=== PATIENT | male | born 1945 | race Caucasian/White ===

== ENCOUNTER 2018-06-19 12:33 | Inpatient (IN) ==
[2018-06-19] MEDS ORDERED: Sod Chloride 0.9% Inj 1,000 ML IV.SIG ONE (12:49)
--- NOTE | 2018-06-19 13:00 | ED ---
HPI General Chief complaint: Fall Stated complaint: Weakness Time Seen by Provider: 06/19/18 12:39 Source: patient, EMS, RN notes reviewed and old records reviewed Mode of arrival: EMS Limitations: no limitations History of Present Illness HPI narrative: 72-year-old male presents to the emergency department via EMS for evaluation after a fall and generalized weakness. Patient was seen in the emergency department yesterday and admission was recommended, but the patient left AGAINST MEDICAL ADVICE. At that time, he was ambulatory. He was answering all questions appropriately and appears capable of making his own decisions. Today, he grabbed onto a chair, falling. He states he laid on the ground 3 hours. Upon EMS arrival, there was stool all over the ground and all over the patient. He has been unable to walk for EMS due to his weakness. The patient states that he wants to stay this time. He reports "all over pain". Per EMS, he had no new injury from the fall. Moderate severity. Onset (ago): hour(s) Radiation: non-radiation Severity: moderate Severity scale (1-10): 10 Quality: aching Pain Consistency: constant Relieving factors: none Exacerbating factors: none Associated symptoms: weakness Related Data Home Medications Medication Instructions Recorded Confirmed Lactobacillus acidophilus 1 cap PO DAILY 06/18/18 06/19/18 aspirin 325 mg PO DAILY 06/18/18 06/19/18 atorvastatin [Lipitor] 40 mg PO HS 06/18/18 06/19/18 carbidopa-levodopa [Sinemet] 2 tab PO BID 06/18/18 06/19/18 cholecalciferol (vitamin D3) 2,000 unit PO DAILY 06/18/18 06/19/18 [Vitamin D3] digoxin [Lanoxin] 0.125 mg PO DAILY 06/18/18 06/19/18 enalapril maleate [Vasotec] 20 mg PO BID 06/18/18 06/19/18 insulin aspart U-100 [Novolog 55 units SUB-Q BID 06/18/18 06/19/18 U-100 Insulin aspart] insulin aspart U-100 [Novolog 60 unit SUB-Q QAM 06/18/18 06/19/18 U-100 Insulin aspart] insulin glargine [Lantus U-100 100 unit SUB-Q HS 06/18/18 06/19/18 Insulin] magnesium oxide 800 mg PO BID 06/18/18 06/19/18 meclizine 25 mg PO BID 06/18/18 06/19/18 meclizine 50 mg PO HS 06/18/18 06/19/18 metformin 500 mg PO BID 06/18/18 06/19/18 methyl salicylate-menthol [BenGay 1 applic TOPICAL BID PRN 06/18/18 06/19/18 Greaseless] multivitamin with minerals 1 tab PO DAILY 06/18/18 06/19/18 omega 1-fhy-ejr-fish oil [Fish Oil] 2,000 mg PO BID 06/18/18 06/19/18 sulindac 150 mg PO BID 06/18/18 06/19/18 tamsulosin 0.4 mg PO DAILY 06/18/18 06/19/18 Allergies Allergy/AdvReac Type Severity Reaction Status Date / Time No Known Allergies Allergy Verified 06/19/18 12:47 Review of Systems ROS: all other systems reviewed are negative [facility] Medical History Medical History Arterioloscleroses (Acute) Diabetes (Acute) Dysthymic disorder (Acute) Eczema (Acute) Hypomagnesemia (Acute) Obesity (BMI 30.0-34.9) (Acute) PTSD (post-traumatic stress disorder) (Acute) Vitamin D deficiency (Acute) Surgical History Surgical History History of tonsillectomy (Acute) Social History Social History Substance History: No History of Abuse Second Hand Smoke Exposure: No Smoking Status: Unknown if ever smoked Tobacco Type: Cigarettes How Often Do You Have a Drink Containing Alcohol: Never Recent Travel in [facility] within the Last 8 Weeks: No Recent Out of Country Travel within the Last 8 Weeks: No Exam Narrative Exam Narrative: GENERAL: Unkempt male patient, covered in dirt and stool, afebrile SKIN: Focused skin assessment warm/dry. No lacerations or abrasions, ulcer noted to right lateral knee HEAD: Normocephalic. Atraumatic EYES: No scleral icterus. No injection or drainage. PERRLA NECK: Supple, trachea midline. No JVD or lymphadenopathy. CARDIOVASCULAR: Regular rate and rhythm without murmurs, gallops, or rubs. RESPIRATORY: Breath sounds equal bilaterally. No accessory muscle use. Lung sounds are clear to auscultation GASTROINTESTINAL: Abdomen soft, non-tender, nondistended. MUSCULOSKELETAL: No cyanosis, or edema. No bony point tenderness. BACK: No obvious deformity. No CVA tenderness. Course Initial Documented Vital Signs Temperature 98.7 F 06/19/18 13:00 Pulse Rate 108 H 06/19/18 13:00 Pulse Oximetry 98 06/19/18 13:00 Last Documented Vital Signs Temperature 98.6 F 06/19/18 14:40 Pulse Rate 80 06/19/18 14:40 Respiratory Rate 18 06/19/18 14:40 Blood Pressure 132/71 06/19/18 14:40 Pulse Oximetry 98 06/19/18 14:40 Medical Decision Making ZULMA Attestation ZULMA supervised visit: Yes Attestation: I, Dr. Michelle, have reviewed the advance practice practitioner's documentation and am in agreement, met with the patient face to face, made the diagnosis, and the medical decision making was done by me. *My assessment and Findings: The patient is 72 years old. He arrives today with generalized weakness brought in from a failure to thrive scenario with stool and urine about his personal residence. He arrives in A. fib with RVR at a rate of 130. Weight improved with diltiazem. Prerenal azotemia also observed today. Admission to the hospitalist service to be arranged. MDM Narrative Medical decision making narrative: 72-year-old male presents to the emergency department via EMS for generalized weakness, fall at home. According to EMS, his house is a rack and he has stool all over the floor as well as himself and was unable to ambulate. The patient was seen yesterday and left AGAINST MEDICAL ADVICE. He states that he will stay this time. He had CT of the head, C-spine, chest x-ray, bilateral femur x-rays, lumbar spine x-ray, pelvis x-ray done yesterday with no acute abnormality. He was to be admitted for generalized weakness, hyperglycemia, dehydration. IV access established. EKG, CBC, CMP, magnesium, TSH, CK, troponin, PTT, PT/INR, UA ordered and pending. Patient is given normal saline 1 L IV bolus. EKG shows A-fib, RVR with 117 CBC shows no acute abnormality. CMP shows elevated BUN of 28, creatinine of 1.49, hyperglycemia of 170. Magnesium is 1.9. TSH is 1.670. CK is 463. Troponin is 0.04. PTT is 22.2. PT/INR is 10.5 /1.0. UA is pending. Hospitalist is paged for admission. Medical Screen Exam Complete: Yes Emergency Medical Condition: Yes Differential Diagnosis Differential Diagnosis: Electrolyte abnormality versus dehydration versus UTI Medical Records Medical records reviewed: Yes I reviewed the patient's medical records. Patient was seen yesterday. Lab work and imaging was completed. He was to be admitted, but left AMA. Lab Data Result diagrams: 06/19/18 13:10 06/19/18 13:10 Lab Results 06/19/18 06/19/18 06/19/18 Range/Units 13:10 13:10 13:10 WBC 5.2 (4.0-11.0) th/mm3 RBC 4.73 (4.50-5.90) mil/mm3 Hgb 14.8 (13.0-17.0) gm/dL Hct 43.7 (39.0-51.0) % MCV 92.5 (80.0-100.0) fL MCH 31.3 (27.0-34.0) pg MCHC 33.9 (32.0-36.0) % RDW 14.0 (11.6-17.2) % Plt Count 141 L (150-450) th/mm3 MPV 8.9 (7.0-11.0) fL Neut % (Auto) 74.3 H (16.0-70.0) % Lymph % (Auto) 15.0 (9.0-44.0) % Lee % (Auto) 8.6 H (0.0-8.0) % Eos % (Auto) 1.5 (0.0-4.0) % Baso % (Auto) 0.6 (0.0-2.0) % Neut # (Auto) 3.9 (1.8-7.7) th/mm3 Lymph # (Auto) 0.8 L (1.0-4.8) th/mm3 Lee # (Auto) 0.4 (0.0-0.9) th/mm3 Eos # (Auto) 0.1 (0.0-0.4) th/mm3 Baso # (Auto) 0.0 (0.0-0.2) th/mm3 WBC Differential . Differential Comment Auto diff final PT 10.5 (9.8-11.6) sec INR 1.0 Ratio APTT 22.2 L (24.3-30.1) sec Sodium 138 (136-145) meq/L Potassium 4.1 (3.5-5.1) meq/L Chloride 104 D (98-107) meq/L Carbon Dioxide 21.3 (21.0-32.0) meq/L Anion Gap 13 (5-15) meq/L BUN 28 H (7-18) mg/dL Creatinine 1.49 H (0.60-1.30) mg/dL Estimated GFR 46 L (>89) mL/min Random Glucose 170 H D (74-106) mg/dL Calcium 8.2 L (8.5-10.1) mg/dL Magnesium 1.9 (1.5-2.5) mg/dL Total Bilirubin 0.7 (0.2-1.0) mg/dL AST 55 H (15-37) U/L ALT 26 (12-78) U/L Alkaline Phosphatase 79 (45-117) U/L Total Creatine Kinase 463 H (39-308) U/L CK-MB (CK-2) 4.1 H (0.5-3.6) ng/mL CK-MB (CK-2) % 0.9 (0.0-4.0) % Troponin I 0.04 (0.02-0.05) ng/mL Total Protein 6.2 L (6.4-8.2) g/dL Albumin 2.8 L (3.4-5.0) g/dL TSH 1.670 (0.358-3.740) uIU/mL Thyroxine (T4) (4.5-12.1) mcg/dL 06/19/18 Range/Units 13:10 WBC (4.0-11.0) th/mm3 RBC (4.50-5.90) mil/mm3 Hgb (13.0-17.0) gm/dL Hct (39.0-51.0) % MCV (80.0-100.0) fL MCH (27.0-34.0) pg MCHC (32.0-36.0) % RDW (11.6-17.2) % Plt Count (150-450) th/mm3 MPV (7.0-11.0) fL Neut % (Auto) (16.0-70.0) % Lymph % (Auto) (9.0-44.0) % Lee % (Auto) (0.0-8.0) % Eos % (Auto) (0.0-4.0) % Baso % (Auto) (0.0-2.0) % Neut # (Auto) (1.8-7.7) th/mm3 Lymph # (Auto) (1.0-4.8) th/mm3 Lee # (Auto) (0.0-0.9) th/mm3 Eos # (Auto) (0.0-0.4) th/mm3 Baso # (Auto) (0.0-0.2) th/mm3 WBC Differential Differential Comment PT (9.8-11.6) sec INR Ratio APTT (24.3-30.1) sec Sodium (136-145) meq/L Potassium (3.5-5.1) meq/L Chloride (98-107) meq/L Carbon Dioxide (21.0-32.0) meq/L Anion Gap (5-15) meq/L BUN (7-18) mg/dL Creatinine (0.60-1.30) mg/dL Estimated GFR (>89) mL/min Random Glucose (74-106) mg/dL Calcium (8.5-10.1) mg/dL Magnesium (1.5-2.5) mg/dL Total Bilirubin (0.2-1.0) mg/dL AST (15-37) U/L ALT (12-78) U/L Alkaline Phosphatase (45-117) U/L Total Creatine Kinase (39-308) U/L CK-MB (CK-2) (0.5-3.6) ng/mL CK-MB (CK-2) % (0.0-4.0) % Troponin I (0.02-0.05) ng/mL Total Protein (6.4-8.2) g/dL Albumin (3.4-5.0) g/dL TSH 1.710 (0.358-3.740) uIU/mL Thyroxine (T4) 9.0 (4.5-12.1) mcg/dL Discharge Plan Discharge Disposition Patient Disposition: 30 Still Patient Discharge Details Diagnosis: Acute dehydration, Generalized weakness, Atrial fibrillation Physicians Team ED Provider: Juan Antonio Michelle ED Midlevel Provider: Khadijah Long Primary Care Provider: [facility] Attending Provider: Reji Wilkes Other Providers: Carlos Fulton Status ED Status: Admitted Patient
[2018-06-19 13:37] LABS: Baso % (Auto) 0.6 % (0.0-2.0); Eos # (Auto) 0.1 th/mm3 (0.0-0.4); Eos % (Auto) 1.5 % (0.0-4.0); Hematocrit 43.7 % (39.0-51.0); Hemoglobin 14.8 gm/dL (13.0-17.0); Lymph # (Auto) 0.8 th/mm3 (1.0-4.8); Mean Corpuscular HGB Conc 33.9 % (32.0-36.0); Mean Corpuscular Hemoglobin 31.3 pg (27.0-34.0); Mean Corpuscular Volume 92.5 fL (80.0-100.0); Mean Platelet Volume 8.9 fL (7.0-11.0); Mono # (Auto) 0.4 th/mm3 (0.0-0.9); Mono % (Auto) 8.6 % (0.0-8.0); Neut # (Auto) 3.9 th/mm3 (1.8-7.7); Neut % (Auto) 74.3 % (16.0-70.0); Platelet Count 141 th/mm3 (150-450); Red Blood Count 4.73 mil/mm3 (4.50-5.90); White Blood Count 5.2 th/mm3 (4.0-11.0)
[2018-06-19 13:47] LABS: Activated Partial Thrombo Time 22.2 sec (24.3-30.1); Prothrombin Time 10.5 sec (9.8-11.6)
[2018-06-19 14:22] LABS: Alanine Aminotransferase 26 U/L (12-78); Albumin 2.8 g/dL (3.4-5.0); Alkaline Phosphatase 79 U/L (45-117); Anion Gap 13 meq/L (5-15); Aspartate Aminotransferase 55 U/L (15-37); Blood Urea Nitrogen 28 mg/dL (7-18); Calcium 8.2 mg/dL (8.5-10.1); Carbon Dioxide 21.3 meq/L (21.0-32.0); Chloride 104 meq/L (98-107); Creatine Kinase 463 U/L (39-308); Glomerular Filtration Rate 46 mL/min (>89); Glucose,Random 170 mg/dL (74-106); Magnesium 1.9 mg/dL (1.5-2.5); Sodium 138 meq/L (136-145); Total Protein 6.2 g/dL (6.4-8.2); Troponin I 0.04 ng/mL (0.02-0.05)
[2018-06-19 14:24] LABS: Potassium 4.1 meq/L (3.5-5.1)
[2018-06-19 14:40] LABS: CKMB Percent 0.9 % (0.0-4.0); Creatine Kinase MB 4.1 ng/mL (0.5-3.6)
[2018-06-19] MEDS ORDERED: Acetaminophen 325 MG Tablet PO PRN (15:05)
[2018-06-19] MEDS ORDERED: Bisacodyl 10 MG Supp RECTAL PRN (15:05)
[2018-06-19] MEDS ORDERED: Dextrose 50% in Water 50 ML Vial IV.PUSH PRN (15:09)
[2018-06-19] MEDS ORDERED: METHYL SALICYLATE MENTHOL TOPICAL PRN (15:10)
[2018-06-19] MEDS ORDERED: Morphine Sulfate Inj 2 MG/ML Vial IV.PUSH PRN (15:10)
[2018-06-19] MEDS ORDERED: Morphine Inj 4 MG/ML Vial IV.PUSH PRN (15:10)
[2018-06-19] MEDS ORDERED: Naloxone Inj 0.4 MG/ML Vial IV.PUSH PRN (15:10)
[2018-06-19] MEDS ORDERED: Metoprolol Inj 5 MG/5 ML Vial IV.PUSH PRN (15:14)
[2018-06-19 15:45] LABS: Thyroid Stimulating Hormone 1.71 uIU/mL (0.358-3.740)
[2018-06-19] MEDS: Digoxin 125 MCG Tablet PO SCH (16:23)
[2018-06-19] MEDS: Aspirin 325 MG Tablet PO SCH (16:23)
[2018-06-19 16:28] LABS: Bilirubin,Urine Negative (Negative); Clarity,Urine Hazy (Clear); Color,Urine Yellow (Yellw/Straw); Glucose,Urine (UA) 150 mg/dL (Negative); Hyaline Casts,Urine 3 /lpf (0-3); Leukocyte Esterase,Urine Negative (Negative); Mucus,Urine Few /lpf (Occasional); Nitrite,Urine Negative (Negative); Specific Gravity,Urine 1.016 (1.002-1.035)
--- NOTE | 2018-06-19 16:30 | P.HPIM ---
History of Present Illness Service: [facility] Primary Care Physician: [facility] Chief Complaint: SP FALL AND WEAKNESS History of Present Illness: Patient is a 72-year-old male presented emergency department via EMS for evaluation after falling and generalized weakness. Patient was seen in the emergency department yesterday and admission was recommended but the patient decided that he was going to leave AGAINST MEDICAL ADVICE and took his walker and leaves the emergency department. At that time he was ambulatory, he was answering all questions appropriately and it was appeared to be capable of making his own decisions. Today he fell chair and was falling. Landed on the ground laid there for at least 3 hours. EMS will stated there was stool all over the ground and all over the patient and all over the house. He was unable to walk and EMS brought him in due to his severe weakness. The patient states that he wants to stay in the hospital this time. He reports "pain all over." Per EMS he denied any new injuries from the fall is moderate severity and stool all over the ground. Has generalized weakness. His past medical history is significant for atrial fibrillation, hyperlipidemia, possible Parkinson's like disorder, diabetes mellitus, osteoarthritis, BPH, and history of dizziness, also has history of obesity and PTSD. Currently not on any heavy duty anticoagulation and previously been on warfarin he states in the past and is now on multiple aspirin daily for anticoagulation Patient will be admitted. His heart rate will be brought under control. Cardiology will be consulted. Will get an echocardiogram. We will anticoagulate with Lovenox and we will continue fluids. We will ask physical therapy and occupational therapy to eval and treat. Has some degree of dehydration and renal insufficiency as well as what sounds like some degree of noncompliance since he left AGAINST MEDICAL ADVICE yesterday Inpatient Certification: I certify that the inpatient services were ordered in accordance with Medicare regulations governing the order. This includes certification that hospital inpatient services are reasonable and necessary and in the case of services not specified as inpatient-only under 42 CFR 419.22(n), that they are appropriately provided as inpatient services in accordance to with the 2-midnight benchmark under 43 CFR 412.3(e) Estimated Total Length of Stay (Days): 3 Plans for Post Hospital Care: SNF Review of Systems All other systems reviewed negative except as stated in HPI [facility] - History History Provided By: Patient - Medical History Medical History: Medical History (Last Updated 06/19/18 @ 16:24 by Reji Wilkes DO) Atrial fibrillation Noncompliance Arterioloscleroses Diabetes Dysthymic disorder Eczema Hypomagnesemia Obesity (BMI 30.0-34.9) PTSD (post-traumatic stress disorder) Vitamin D deficiency - Surgical History Surgical History: Surgical History (Last Updated 06/18/18 @ 16:55 by Luh Veras) History of tonsillectomy - Family History Family History: Family History (Last Updated 06/19/18 @ 16:24 by Reji Wilkes DO) Other Family history of hypertension - Tobacco History Second Hand Smoke Exposure: No Tobacco Use In Past 30 Days: No Smoking Status: Unknown if ever smoked Tobacco Type: Cigarettes - Alcohol History How Often Do You Have a Drink Containing Alcohol: Never - Substance Use History Substance History: No History of Abuse - Travel History History of Recent Travel: No Recent Travel in the [place] Within the Last 8 Weeks: No Recent Travel Out of the Country Within the Last 8 Weeks: No - Immunization History Tetanus Immunization: Unsure Hx Influenza Vaccine This Season: Unable to Assess Medications and Allergies Active Medications: Active Medications Acetaminophen (Tylenol) 650 mg PO Q4H PRN PRN Reason: Temp > 100.4 Al Hydroxide/Mg Hydroxide (Milk Of Magnesia Liq) 30 ml PO Q12H PRN PRN Reason: Mild Constipation Aspirin (Aspirin) 325 mg PO DAILY RICARDO Atorvastatin Calcium (Lipitor) 40 mg PO HS RICARDO Bisacodyl (Dulcolax Supp) 10 mg RECTAL DAILY PRN PRN Reason: SEVERE CONSITIPATION Carbidopa/Levodopa (Sinemet 25/100 Mg) 2 tab PO BID RICARDO Dextrose (D50w Vial) 50 ml IV.PUSH UNSCH PRN PRN Reason: PER HYPOGLYCEMIA PROTOCOL Digoxin (Lanoxin) 125 mcg PO DAILY RICARDO Enalapril Maleate (Vasotec) 20 mg PO BID RICARDO Enoxaparin Sodium (Lovenox Inj) 90 mg SQ Q12H RICARDO Glucagon (Glucagon Inj) 1 mg OTHER PRN PRN PRN Reason: for Hypoglycemia Protocol Sodium Chloride (Ns Inj) 1,000 mls @ 100 mls/hr IV.CONT .Q10H RICARDO Insulin Aspart (Novolog Insulin Correctional Sugar Inj) 0 unit SQ ACHS AND 3AM RICARDO; Protocol Lactobacillus Acidophilus (Lactinex) 1 tab PO DAILY RICARDO Lactulose (Lactulose Liq) 30 ml PO DAILY PRN PRN Reason: SEVERE CONSITIPATION Magnesium Oxide (Mag-Ox) 400 mg PO DAILY [facility] Meclizine HCl (Antivert) 50 mg PO HS [facility] Metoprolol Tartrate (Lopressor Inj) 5 mg IV.PUSH Q5M PRN PRN Reason: HEART RATE GREATER THAN 120 Morphine Sulfate (Morphine Inj) 2 mg IV.PUSH Q3H PRN PRN Reason: PAIN 3-5; IF UABLE TO TAKE PO Morphine Sulfate (Morphine Inj) 4 mg IV.PUSH Q3H PRN PRN Reason: PAIN 6-10;IF UNABLE TO TAKE PO Multivitamins/Minerals (Theragran-M) 1 tab PO DAILY [facility] Naloxone HCl (Narcan Inj) 0.4 mg IV.PUSH UNSCH PRN PRN Reason: SEE LABEL COMMENTS Ondansetron HCl (Zofran Inj) 4 mg IV.PUSH Q6H PRN PRN Reason: NAUSEA OR VOMITING Oxycodone/Acetaminophen (Percocet 5/325 Mg) 1 tab PO Q6H PRN PRN Reason: PAIN SCALE 3 TO 5 Oxycodone/Acetaminophen (Percocet 10/325 Mg) 1 tab PO Q6H PRN PRN Reason: PAIN SCALE 6 TO 10 Patient Own Medication( [place] 3 Dha-Epa Fish Oil) 2000 Mg 0 each PO BID [facility] Pt Own Med [Sulindac (150 Mg]) 0 each PO BID [facility] Senna/Docusate Sodium (Rayna-Colace) 1 tab PO BID [facility] Sennosides (Senokot) 17.2 mg PO Q12H PRN PRN Reason: Moderate Constipation Sodium Chloride (Ns Flush) 2 ml IV.FLUSH PRN PRN PRN Reason: FLUSH AFTER USING IV ACCESS Sodium Chloride (Ns Flush) 2 ml IV.FLUSH BID [facility] Sodium Chloride (Ns Flush) 2 ml IV.FLUSH PRN PRN PRN Reason: FLUSH AFTER USING IV ACCESS Tamsulosin HCl (Flomax) 0.4 mg PO DAILY [facility] Vitamin D (Vitamin D3) 2,000 unit PO DAILY [facility] Allergies Allergy/AdvReac Type Severity Reaction Status Date / Time No Known Allergies Allergy Verified 06/19/18 12:47 Home Medications Medication Instructions Recorded Confirmed Type Lactobacillus acidophilus 1 cap PO DAILY 06/18/18 06/19/18 History aspirin 325 mg PO DAILY 06/18/18 06/19/18 History atorvastatin [Lipitor] 40 mg PO HS 06/18/18 06/19/18 History carbidopa-levodopa [Sinemet] 2 tab PO BID 06/18/18 06/19/18 History cholecalciferol (vitamin D3) 2,000 unit PO DAILY 06/18/18 06/19/18 History [Vitamin D3] digoxin [Lanoxin] 0.125 mg PO DAILY 06/18/18 06/19/18 History enalapril maleate [Vasotec] 20 mg PO BID 06/18/18 06/19/18 History insulin aspart U-100 [Novolog 55 units SUB-Q BID 06/18/18 06/19/18 History U-100 Insulin aspart] insulin aspart U-100 [Novolog 60 unit SUB-Q QAM 06/18/18 06/19/18 History U-100 Insulin aspart] insulin glargine [Lantus U-100 100 unit SUB-Q HS 06/18/18 06/19/18 History Insulin] magnesium oxide 800 mg PO DAILY NEB 06/18/18 06/19/18 History meclizine 25 mg PO BID 06/18/18 06/19/18 History meclizine 50 mg PO HS 06/18/18 06/19/18 History metformin 500 mg PO BID 06/18/18 06/19/18 History methyl salicylate-menthol [BenGay 1 applic TOPICAL BID PRN 06/18/18 06/19/18 History Greaseless] multivitamin with minerals 1 tab PO DAILY 06/18/18 06/19/18 History omega 6-cav-ldh-fish oil [Fish Oil] 2,000 mg PO BID 06/18/18 06/19/18 History sulindac 150 mg PO BID 06/18/18 06/19/18 History tamsulosin 0.4 mg PO DAILY 06/18/18 06/19/18 History Exam Vital signs: Vital Signs 06/19/18 13:00 06/19/18 14:40 Temperature 98.7 F 98.6 F Pulse Rate 108 H 80 Respiratory Rate 18 Blood Pressure 132/71 Pulse Oximetry 98 98 Intake & Output 06/18/18 06/19/18 06/19/18 18:59 06:59 18:59 Weight 90.718 kg Narrative: GENERAL: Awake alert and oriented 3 talkative and cooperative appears a little older than stated age and appears quite disheveled SKIN: Warm and dry. Appears dirty and diabetic skin changes to bilateral lower extremities HEAD: Atraumatic. Normocephalic. EYES: Pupils equal and round. No scleral icterus. No injection or drainage. ENT: No nasal bleeding or discharge. Mucous membranes pink and moist. NECK: Trachea midline. No JVD. CARDIOVASCULAR: IRRegular rate and rhythm. S1-S2 no S3 or S4 RESPIRATORY: No accessory muscle use. Clear to auscultation. Breath sounds equal bilaterally. GASTROINTESTINAL: Abdomen soft, non-tender, nondistended. Hepatic and splenic margins not palpable. MUSCULOSKELETAL: Extremities without clubbing, cyanosis, or edema. No obvious deformities. NEUROLOGICAL: Awake and alert. No obvious cranial nerve deficits. Motor grossly within normal limits. 4 out of 5 muscle strength in the arms and legs. Normal speech. PSYCHIATRIC: Appropriate mood and affect; insight and judgment normal. Results - Labs CBC & Chem 7: 06/19/18 13:10 06/19/18 13:10 Labs: Short CBC 06/19/18 Range/Units 13:10 WBC 5.2 (4.0-11.0) th/mm3 Hgb 14.8 (13.0-17.0) gm/dL Hct 43.7 (39.0-51.0) % Plt Count 141 L (150-450) th/mm3 BMP 06/19/18 13:10 Sodium 138 Potassium 4.1 Chloride 104 D Carbon Dioxide 21.3 BUN 28 H Creatinine 1.49 H Calcium 8.2 L Cardiac Enzymes 06/19/18 Range/Units 13:10 Total Creatine Kinase 463 H (39-308) U/L CK-MB (CK-2) 4.1 H (0.5-3.6) ng/mL Troponin I 0.04 (0.02-0.05) ng/mL Liver Function 06/19/18 Range/Units 13:10 Total Bilirubin 0.7 (0.2-1.0) mg/dL AST 55 H (15-37) U/L ALT 26 (12-78) U/L Alkaline Phosphatase 79 (45-117) U/L Albumin 2.8 L (3.4-5.0) g/dL Caprini VTE Risk Assessment Caprini VTE Risk Assessment: Moderate/High Risk (score >= 2) Caprini Risk Assessment Model: Point Value = 1 Point Value = 2 Point Value = 3 Point Value = 5 Age 41-60 Minor surgery BMI > 25 kg/m2 Swollen legs Varicose veins or History of unexplained or recurrent spontaneous Oral contraceptives or hormone replacement Sepsis (< 1 month) Serious lung disease, including pneumonia (< 1 month) Abnormal pulmonary function Acute myocardial infarction Congestive heart failure (< 1 month) History of inflammatory bowel disease Medical patient at bed rest Age 61-74 Arthroscopic surgery Major open surgery (> 45 min) Laparoscopic surgery (> 45 min) Malignancy Confined to bed (> 72 hours) Immobilizing plaster cast Central venous access Age >= 75 History of VTE Family history of VTE Factor V Leiden Prothrombin [id number] Lupus anticoagulant Anticardiolipin antibodies Elevated serum homocysteine Heparin-induced thrombocytopenia Other congenital or acquired thrombophilia Stroke (< 1 month) Elective arthroplasty Hip, pelvis, or leg fracture Acute spinal cord injury (< 1 month) Prophylaxis Regimen: Total Risk Factor Score Risk Level Prophylaxis Regimen 0-1 Low Early ambulation 2 Moderate Order ONE of the following: *Sequential Compression Device (SCD) *Heparin 5000 units SQ BID 3-4 Higher Order ONE of the following medications: *Heparin 5000 units SQ TID *Enoxaparin/Lovenox 40 mg SQ daily (WT < 150 kg, CrCl > 30 mL/min) *Enoxaparin/Lovenox 30 mg SQ daily (WT < 150 kg, CrCl > 10-29 mL/min) *Enoxaparin/Lovenox 30 mg SQ BID (WT < 150 kg, CrCl > 30 mL/min) AND/OR *Sequential Compression Device (SCD) 5 or more Highest Order ONE of the following medications: *Heparin 5000 units SQ TID (Preferred with Epidurals) *Enoxaparin/Lovenox 40 mg SQ daily (WT < 150 kg, CrCl > 30 mL/min) *Enoxaparin/Lovenox 30 mg SQ daily (WT < 150 kg, CrCl > 10-29 mL/min) *Enoxaparin/Lovenox 30 mg SQ BID (WT < 150 kg, CrCl > 30 mL/min) AND *Sequential Compression Device (SCD) Assessment and Plan - Plan Generalized weakness -We will continue with physical therapy and Occupational Therapy -May need SNF at discharge -Found in disarray at his house was stool all Atrial fibrillation -We will get echo -Consult cardiology -Continue on Lovenox -Resume home medications and as needed metoprolol Admit to [facility] Diabetes -sliding scale coverage and Accu-Cheks before meals and at bedtime -We will resume his insulin once he is tolerating a diet Osteoarthritis -Continue on pain control -Physical therapy and occupational therapy to eval and treat Possible parkinsonian-like symptoms -Continue on his Sinemet as at home PTSD resume his home medications Depression/anxiety History of tobacco abuse quit 25 years ago Gait instability/status post fall -Continue physical therapy and Occupational Therapy Continue on DVT prophylaxis with Lovenox GI prophylaxis as needed Cardiology has been consulted Case management has been consult Physical therapy and Occupational Therapy has been consult We will get echo and try and get his heart rate under control Patient states he only follows at the [facility] clinic - Code Status: Full code Discussed Condition With: RN and patient and the emergency department and cardiology Discharge Planning: Pending improvement and clearance by physical therapy and Occupational Therapy and cardiology May need SNF at discharge
--- NOTE | 2018-06-19 17:03 | P.CONCA ---
<Apurva Weeks - Last Filed: 06/19/18 16:47> History of Present Illness Service: Cardiology Consult date: 06/19/18 Requesting Physician: Reji Wilkes Reason for Consult: Atrial fibrillation Primary Care Provider: [facility] Chief Complaint: SP FALL AND WEAKNESS History of Present Illness: This is a 72-year-old male who presents to the emergency department via EMS for evaluation of her falling and generalized weakness. Patient was seen in the emergency department yesterday and was recommended to be admitted, patient left AGAINST MEDICAL ADVICE. After speaking with the patient, patient stated that he was getting out of his chair and lost his balance and fell and laid on the ground for over 3 hours. Patient denies any syncope or any new injuries post fall. He has a history of atrial fibrillation which he states he was taking Coumadin but stopped and is just taking aspirin, hyperlipidemia, diabetes mellitus, osteoarthritis, BPH, obesity, PTSD, and a history of dizziness. He currently denies any chest pain, pressure, palpitations, dizziness, edema or shortness of breath. He does complain of generalized weakness that has progressively been getting worse. Review of Systems All other systems reviewed negative except as stated in HPI PMFSH - History History Provided By: Patient - Medical History Medical History: Medical History (Last Updated 06/19/18 @ 16:24 by Reji Wilkes DO) Atrial fibrillation Noncompliance Arterioloscleroses Diabetes Dysthymic disorder Eczema Hypomagnesemia Obesity (BMI 30.0-34.9) PTSD (post-traumatic stress disorder) Vitamin D deficiency - Surgical History Surgical History: Surgical History (Last Updated 06/18/18 @ 16:55 by Luh Veras) History of tonsillectomy - Family History Family History: Family History (Last Updated 06/19/18 @ 16:24 by Reji Wilkes DO) Other Family history of hypertension - Tobacco History Second Hand Smoke Exposure: No Tobacco Use In Past 30 Days: No Smoking Status: Unknown if ever smoked Tobacco Type: Cigarettes - Alcohol History How Often Do You Have a Drink Containing Alcohol: Never - Substance Use History Substance History: No History of Abuse - Travel History History of Recent Travel: No Recent Travel in the [place] Within the Last 8 Weeks: No Recent Travel Out of the Country Within the Last 8 Weeks: No - Immunization History Tetanus Immunization: Unsure Hx Influenza Vaccine This Season: Unable to Assess Medications and Allergies Allergies Allergy/AdvReac Type Severity Reaction Status Date / Time No Known Allergies Allergy Verified 06/19/18 12:47 Home Medications Medication Instructions Recorded Confirmed Type Lactobacillus acidophilus 1 cap PO DAILY 06/18/18 06/19/18 History aspirin 325 mg PO DAILY 06/18/18 06/19/18 History atorvastatin [Lipitor] 40 mg PO HS 06/18/18 06/19/18 History carbidopa-levodopa [Sinemet] 2 tab PO BID 06/18/18 06/19/18 History cholecalciferol (vitamin D3) 2,000 unit PO DAILY 06/18/18 06/19/18 History [Vitamin D3] digoxin [Lanoxin] 0.125 mg PO DAILY 06/18/18 06/19/18 History enalapril maleate [Vasotec] 20 mg PO BID 06/18/18 06/19/18 History insulin aspart U-100 [Novolog 55 units SUB-Q BID 06/18/18 06/19/18 History U-100 Insulin aspart] insulin aspart U-100 [Novolog 60 unit SUB-Q QAM 06/18/18 06/19/18 History U-100 Insulin aspart] insulin glargine [Lantus U-100 100 unit SUB-Q HS 06/18/18 06/19/18 History Insulin] magnesium oxide 800 mg PO DAILY NEB 06/18/18 06/19/18 History meclizine 25 mg PO BID 06/18/18 06/19/18 History meclizine 50 mg PO HS 06/18/18 06/19/18 History metformin 500 mg PO BID 06/18/18 06/19/18 History methyl salicylate-menthol [BenGay 1 applic TOPICAL BID PRN 06/18/18 06/19/18 History Greaseless] multivitamin with minerals 1 tab PO DAILY 06/18/18 06/19/18 History omega [id number]-fish oil [Fish Oil] 2,000 mg PO BID 06/18/18 06/19/18 History sulindac 150 mg PO BID 06/18/18 06/19/18 History tamsulosin 0.4 mg PO DAILY 06/18/18 06/19/18 History Active Medications: Active Medications Acetaminophen (Tylenol) 650 mg PO Q4H PRN PRN Reason: Temp > 100.4 Al Hydroxide/Mg Hydroxide (Milk Of Magnesia Liq) 30 ml PO Q12H PRN PRN Reason: Mild Constipation Aspirin (Aspirin) 325 mg PO DAILY [facility] Last Admin: 06/19/18 16:23 Dose: Not Given Atorvastatin Calcium (Lipitor) 40 mg PO HS [facility] Bisacodyl (Dulcolax Supp) 10 mg RECTAL DAILY PRN PRN Reason: SEVERE CONSITIPATION Carbidopa/Levodopa (Sinemet 25/100 Mg) 2 tab PO BID [facility] Dextrose (D50w Vial) 50 ml IV.PUSH UNSCH PRN PRN Reason: PER HYPOGLYCEMIA PROTOCOL Digoxin (Lanoxin) 125 mcg PO DAILY [facility] Last Admin: 06/19/18 16:23 Dose: Not Given Enalapril Maleate (Vasotec) 20 mg PO BID [facility] Enoxaparin Sodium (Lovenox Inj) 90 mg SQ Q12H [facility] Glucagon (Glucagon Inj) 1 mg OTHER PRN PRN PRN Reason: for Hypoglycemia Protocol Sodium Chloride (Ns Inj) 1,000 mls @ 100 mls/hr IV.CONT .Q10H [facility] Insulin Aspart (Novolog Insulin Correctional Sugar Inj) 0 unit SQ ACHS AND 3AM [facility]; Protocol Lactobacillus Acidophilus (Lactinex) 1 tab PO DAILY [facility] Lactulose (Lactulose Liq) 30 ml PO DAILY PRN PRN Reason: SEVERE CONSITIPATION Magnesium Oxide (Mag-Ox) 400 mg PO DAILY [facility] Meclizine HCl (Antivert) 50 mg PO HS [facility] Metoprolol Tartrate (Lopressor Inj) 5 mg IV.PUSH Q5M PRN PRN Reason: HEART RATE GREATER THAN 120 Morphine Sulfate (Morphine Inj) 2 mg IV.PUSH Q3H PRN PRN Reason: PAIN 3-5; IF UABLE TO TAKE PO Morphine Sulfate (Morphine Inj) 4 mg IV.PUSH Q3H PRN PRN Reason: PAIN 6-10;IF UNABLE TO TAKE PO Multivitamins/Minerals (Theragran-M) 1 tab PO DAILY [facility] Naloxone HCl (Narcan Inj) 0.4 mg IV.PUSH UNSCH PRN PRN Reason: SEE LABEL COMMENTS Ondansetron HCl (Zofran Inj) 4 mg IV.PUSH Q6H PRN PRN Reason: NAUSEA OR VOMITING Oxycodone/Acetaminophen (Percocet 5/325 Mg) 1 tab PO Q6H PRN PRN Reason: PAIN SCALE 3 TO 5 Oxycodone/Acetaminophen (Percocet 10/325 Mg) 1 tab PO Q6H PRN PRN Reason: PAIN SCALE 6 TO 10 Patient Own Medication( [place] 3 Dha-Epa Fish Oil) 2000 Mg 0 each PO BID [facility] Pt Own Med [Sulindac (150 Mg]) 0 each PO BID [facility] Senna/Docusate Sodium (Rayna-Colace) 1 tab PO BID [facility] Sennosides (Senokot) 17.2 mg PO Q12H PRN PRN Reason: Moderate Constipation Sodium Chloride (Ns Flush) 2 ml IV.FLUSH PRN PRN PRN Reason: FLUSH AFTER USING IV ACCESS Sodium Chloride (Ns Flush) 2 ml IV.FLUSH BID [facility] Sodium Chloride (Ns Flush) 2 ml IV.FLUSH PRN PRN PRN Reason: FLUSH AFTER USING IV ACCESS Tamsulosin HCl (Flomax) 0.4 mg PO DAILY [facility] Last Admin: 06/19/18 16:23 Dose: Not Given Vitamin D (Vitamin D3) 2,000 unit PO DAILY [facility] Last Admin: 06/19/18 16:24 Dose: Not Given Exam Vital signs: Vital Signs 06/19/18 13:00 06/19/18 14:40 06/19/18 16:19 Temperature 98.7 F 98.6 F 98.9 F Pulse Rate 108 H 80 93 H Respiratory Rate 18 18 Blood Pressure 132/71 119/74 Pulse Oximetry 98 98 Intake & Output 06/18/18 06/19/18 06/19/18 18:59 06:59 18:59 Weight 90.718 kg - Constitutional no acute distress - Routine HEENT Exam Head: Present: normocephalic Eye: Present: PERRL ENT: Present: mucous membranes moist - Routine Neck Exam Present: full ROM. Absent: JVD, carotid bruit - Routine Respiratory Exam Present: CTA bilaterally - Routine Cardiovascular Exam Present: irregular rhythm. Absent: murmur, gallop, rubs - Routine Abdominal Exam Present: soft - Routine Extremities Exam Present: full ROM, pulses intact, normal capillary refill. Absent: clubbing - Routine Skin Exam Present: intact - Routine Neurological Exam Present: oriented X3 Results 06/19/18 13:10 06/19/18 13:10 Cardiac Enzymes 06/19/18 Range/Units 13:10 AST 55 H (15-37) U/L CK-MB (CK-2) 4.1 H (0.5-3.6) ng/mL Troponin I 0.04 (0.02-0.05) ng/mL Coagulation 06/19/18 Range/Units 13:10 PT 10.5 (9.8-11.6) sec APTT 22.2 L (24.3-30.1) sec CBC 06/19/18 Range/Units 13:10 WBC 5.2 (4.0-11.0) th/mm3 RBC 4.73 (4.50-5.90) mil/mm3 Hgb 14.8 (13.0-17.0) gm/dL Hct 43.7 (39.0-51.0) % Plt Count 141 L (150-450) th/mm3 Neut # (Auto) 3.9 (1.8-7.7) th/mm3 Lymph # (Auto) 0.8 L (1.0-4.8) th/mm3 [place] # (Auto) 0.4 (0.0-0.9) th/mm3 Eos # (Auto) 0.1 (0.0-0.4) th/mm3 Baso # (Auto) 0.0 (0.0-0.2) th/mm3 Comprehensive Metabolic Panel 06/19/18 Range/Units 13:10 Sodium 138 (136-145) meq/L Potassium 4.1 (3.5-5.1) meq/L Chloride 104 D (98-107) meq/L Carbon Dioxide 21.3 (21.0-32.0) meq/L BUN 28 H (7-18) mg/dL Creatinine 1.49 H (0.60-1.30) mg/dL Calcium 8.2 L (8.5-10.1) mg/dL AST 55 H (15-37) U/L ALT 26 (12-78) U/L Alkaline Phosphatase 79 (45-117) U/L Total Protein 6.2 L (6.4-8.2) g/dL Albumin 2.8 L (3.4-5.0) g/dL Intake and Output 06/19/18 06/19/18 06/19/18 06:59 14:59 22:59 Other: Weight 90.718 kg Patient Weight 06/20/18 06:59 Weight 90.718 kg Assessment and Plan - Assessment (1) Acute dehydration Code(s): E86.0 - Dehydration Status: Acute (2) Generalized weakness Code(s): R53.1 - Weakness Status: Acute (3) Atrial fibrillation Code(s): I48.91 - Unspecified atrial fibrillation Status: Acute - Plan 2D echo to assess left ventricular function. CHADVAS score 3. Agree with anticoagulation with Lovenox, recommend a switch to Xarelto after discharge. Will follow patient during hospitalization. [facility] The patient was seen and evaluated by Dr. Fulton who participated in care, management and decision-making. <Carlos Fulton - Last Filed: 06/19/18 19:16> History of Present Illness Primary Care Provider: [facility] - Medical History Medical History: Medical History (Last Updated 06/19/18 @ 16:24 by Reji Wilkes DO) Atrial fibrillation Noncompliance Arterioloscleroses Diabetes Dysthymic disorder Eczema Hypomagnesemia Obesity (BMI 30.0-34.9) PTSD (post-traumatic stress disorder) Vitamin D deficiency - Surgical History Surgical History: Surgical History (Last Updated 06/18/18 @ 16:55 by Luh Veras) History of tonsillectomy - Family History Family History: Family History (Last Updated 06/19/18 @ 16:24 by Reji Wilkes DO) Other Family history of hypertension Medications and Allergies Active Medications: Active Medications Acetaminophen (Tylenol) 650 mg PO Q4H PRN PRN Reason: Temp > 100.4 Al Hydroxide/Mg Hydroxide (Milk Of Andreas Liq) 30 ml PO Q12H PRN PRN Reason: Mild Constipation Aspirin (Aspirin) 325 mg PO DAILY [facility] Last Admin: 06/19/18 16:23 Dose: Not Given Atorvastatin Calcium (Lipitor) 40 mg PO HS [facility] Bisacodyl (Dulcolax Supp) 10 mg RECTAL DAILY PRN PRN Reason: SEVERE CONSITIPATION Carbidopa/Levodopa (Sinemet 25/100 Mg) 2 tab PO BID [facility] Dextrose (D50w Vial) 50 ml IV.PUSH UNSCH PRN PRN Reason: PER HYPOGLYCEMIA PROTOCOL Digoxin (Lanoxin) 125 mcg PO DAILY [facility] Enalapril Maleate (Vasotec) 20 mg PO BID [facility] Enoxaparin Sodium (Lovenox Inj) 90 mg SQ Q12H [facility] Last Admin: 06/19/18 17:47 Dose: 90 mg Glucagon (Glucagon Inj) 1 mg OTHER PRN PRN PRN Reason: for Hypoglycemia Protocol Sodium Chloride (Ns Inj) 1,000 mls @ 100 mls/hr IV.CONT .Q10H [facility] Last Admin: 06/19/18 17:47 Dose: 100 mls/hr Insulin Aspart (Novolog Insulin Correctional Sugar Inj) 0 unit SQ ACHS AND 3AM [facility]; Protocol Last Admin: 06/19/18 18:01 Dose: Not Given Lactobacillus Acidophilus (Lactinex) 1 tab PO DAILY [facility] Last Admin: 06/19/18 17:46 Dose: Not Given Lactulose (Lactulose Liq) 30 ml PO DAILY PRN PRN Reason: SEVERE CONSITIPATION Magnesium Oxide (Mag-Ox) 400 mg PO DAILY [facility] Meclizine HCl (Antivert) 50 mg PO HS [facility] Metoprolol Tartrate (Lopressor Inj) 5 mg IV.PUSH Q5M PRN PRN Reason: HEART RATE GREATER THAN 120 Morphine Sulfate (Morphine Inj) 2 mg IV.PUSH Q3H PRN PRN Reason: PAIN 3-5; IF UABLE TO TAKE PO Morphine Sulfate (Morphine Inj) 4 mg IV.PUSH Q3H PRN PRN Reason: PAIN 6-10;IF UNABLE TO TAKE PO Multivitamins/Minerals (Theragran-M) 1 tab PO DAILY [facility] Last Admin: 06/19/18 17:46 Dose: 1 tab Naloxone HCl (Narcan Inj) 0.4 mg IV.PUSH UNSCH PRN PRN Reason: SEE LABEL COMMENTS Ondansetron HCl (Zofran Inj) 4 mg IV.PUSH Q6H PRN PRN Reason: NAUSEA OR VOMITING Oxycodone/Acetaminophen (Percocet 5/325 Mg) 1 tab PO Q6H PRN PRN Reason: PAIN SCALE 3 TO 5 Oxycodone/Acetaminophen (Percocet 10/325 Mg) 1 tab PO Q6H PRN PRN Reason: PAIN SCALE 6 TO 10 Patient Own Medication( [place] 3 Dha-Epa Fish Oil) 2000 Mg 0 each PO BID [facility] Pt Own Med [Sulindac (150 Mg]) 0 each PO BID [facility] Senna/Docusate Sodium (Rayna-Colace) 1 tab PO BID [facility] Sennosides (Senokot) 17.2 mg PO Q12H PRN PRN Reason: Moderate Constipation Sodium Chloride (Ns Flush) 2 ml IV.FLUSH PRN PRN PRN Reason: FLUSH AFTER USING IV ACCESS Sodium Chloride (Ns Flush) 2 ml IV.FLUSH BID [facility] Sodium Chloride (Ns Flush) 2 ml IV.FLUSH PRN PRN PRN Reason: FLUSH AFTER USING IV ACCESS Tamsulosin HCl (Flomax) 0.4 mg PO DAILY [facility] Last Admin: 06/19/18 16:23 Dose: Not Given Vitamin D (Vitamin D3) 2,000 unit PO DAILY [facility] Last Admin: 06/19/18 16:24 Dose: Not Given Exam Vital signs: Vital Signs 06/19/18 13:00 06/19/18 14:40 06/19/18 15:14 Temperature 98.7 F 98.6 F 98.7 F Pulse Rate 108 H 80 101 H Respiratory Rate 18 18 Blood Pressure 132/71 125/88 Pulse Oximetry 98 98 100 06/19/18 16:19 Temperature 98.9 F Pulse Rate 93 H Respiratory Rate 18 Blood Pressure 119/74 Pulse Oximetry Intake & Output 06/19/18 06/19/18 06/20/18 06:59 18:59 06:59 Weight 200 lb Results 06/19/18 13:10 06/19/18 13:10 Cardiac Enzymes 06/19/18 Range/Units 13:10 AST 55 H (15-37) U/L CK-MB (CK-2) 4.1 H (0.5-3.6) ng/mL Troponin I 0.04 (0.02-0.05) ng/mL Coagulation 06/19/18 Range/Units 13:10 PT 10.5 (9.8-11.6) sec APTT 22.2 L (24.3-30.1) sec CBC 06/19/18 Range/Units 13:10 WBC 5.2 (4.0-11.0) th/mm3 RBC 4.73 (4.50-5.90) mil/mm3 Hgb 14.8 (13.0-17.0) gm/dL Hct 43.7 (39.0-51.0) % Plt Count 141 L (150-450) th/mm3 Neut # (Auto) 3.9 (1.8-7.7) th/mm3 Lymph # (Auto) 0.8 L (1.0-4.8) th/mm3 [place] # (Auto) 0.4 (0.0-0.9) th/mm3 Eos # (Auto) 0.1 (0.0-0.4) th/mm3 Baso # (Auto) 0.0 (0.0-0.2) th/mm3 Comprehensive Metabolic Panel 06/19/18 Range/Units 13:10 Sodium 138 (136-145) meq/L Potassium 4.1 (3.5-5.1) meq/L Chloride 104 D (98-107) meq/L Carbon Dioxide 21.3 (21.0-32.0) meq/L BUN 28 H (7-18) mg/dL Creatinine 1.49 H (0.60-1.30) mg/dL Calcium 8.2 L (8.5-10.1) mg/dL AST 55 H (15-37) U/L ALT 26 (12-78) U/L Alkaline Phosphatase 79 (45-117) U/L Total Protein 6.2 L (6.4-8.2) g/dL Albumin 2.8 L (3.4-5.0) g/dL Intake and Output 06/19/18 06/19/18 06/19/18 06:59 14:59 22:59 Other: Weight 200 lb Patient Weight 06/20/18 06:59 Weight 200 lb Assessment and Plan - Assessment (1) Acute dehydration Code(s): E86.0 - Dehydration Status: Acute (2) Generalized weakness Code(s): R53.1 - Weakness Status: Acute (3) Atrial fibrillation Code(s): I48.91 - Unspecified atrial fibrillation Status: Acute - Attending Attestation Patient seen and examined. I reviewed and agree with the evaluation and plan as presented. Continue and titrate rate control with digoxin, add metoprolol. Continue Lovenox, switch to Xarelto later[facility] <Apurva Weeks - Last Filed: 06/19/18 16:47> (3) Atrial fibrillation Qualifiers: Atrial fibrillation type: unspecified Qualified Code(s): I48.91 - Unspecified atrial fibrillation <Carlos Fulton - Last Filed: 06/19/18 19:16> (3) Atrial fibrillation Qualifiers: Atrial fibrillation type: unspecified Qualified Code(s): I48.91 - Unspecified atrial fibrillation
[2018-06-19] MEDS: Lactobacillus Acidophilus/L. Spores Tablet PO SCH (17:46)
[2018-06-19] MEDS: Multivitamin/Minerals Therapeutic Tablet PO SCH (17:46)
[2018-06-19] MEDS: Sod Chloride 0.9% Inj 1,000 ML IV.CONT SCH (17:47)
[2018-06-19] MEDS: Enoxaparin Inj 100 MG/ML Syringe SQ SCH (17:47)
[2018-06-19] MEDS: Insulin NovoLOG Aspart Correctional Sugar Inj SQ SCH ×3 (18:01→21:23)
--- NOTE | 2018-06-19 18:35 | ECHRPT ---
Indication: A-FIB CONCLUSIONS The left ventricular systolic function is normal with an estimated ejection fraction in the range of 55-60%. Normal left ventricular size. Wall thickness is normal. No regional wall motion abnormalities are present. BP: / HR: Rhythm: Atrial fibrillation MEASUREMENTS (Male / Female) Normal Values Technical Quality:Poor 2D ECHO LV Diastolic Diameter PLAX 3.1 cm 4.2 - 5.9 / 3.9 - 5.3 cm LV Systolic Diameter PLAX 2.2 cm IVS Diastolic Thickness 1.2 cm 0.6 - 1.0 / 0.6 - 0.9 cm LVPW Diastolic Thickness 1.2 cm 0.6 - 1.0 / 0.6 - 0.9 cm LV Relative Wall Thickness 0.8 LA Systolic Diameter LX 3.8 cm 3.0 - 4.0 / 2.7 - 3.8 cm LV Ejection Fraction MOD 4C 52.6 % LV Ejection Fraction 4C AL 53.5 % DOPPLER AV Peak Velocity 179.0 cm/s AV Peak Gradient 12.8 mmHg LVOT Peak Velocity 97.2 cm/s LVOT Peak Gradient 3.8 mmHg MV Area PHT 6.7 cm Mitral E Point Velocity 91.8 cm/s Mitral A Point Velocity 94.8 cm/s Mitral E to A Ratio 1.0 LV E' Lateral Velocity 10.3 cm/s Mitral E to LV E' Lateral Ratio 8.9 LV E' Septal Velocity 9.6 cm/s Mitral E to LV E' Septal Ratio 9.6 PV Peak Velocity 156.0 cm/s PV Peak Gradient 9.7 mmHg FINDINGS LEFT VENTRICLE The left ventricular systolic function is normal with an estimated ejection fraction in the range of 55-60%. Normal left ventricular size. Wall thickness is normal. No regional wall motion abnormalities are present. RIGHT VENTRICLE Normal right ventricular size and systolic function. LEFT ATRIUM The left atrial size is normal. RIGHT ATRIUM The right atrial size is normal. ATRIAL SEPTUM Normal atrial septal thickness without atrial level shunting by limited color doppler interrogation. AORTA The aortic root and proximal ascending aorta are normal in size on limited imaging. MITRAL VALVE Structurally normal mitral valve. No mitral valve stenosis or regurgitation. AORTIC VALVE Trileaflet aortic valve. No aortic valve stenosis or regurgitation. TRICUSPID VALVE Structurally normal tricuspid valve. No tricuspid valve stenosis or regurgitation. PULMONARY VALVE The pulmonary valve is not well visualized. VESSELS The inferior vena cava is normal in size. PERICARDIUM No pericardial effusion. Carlos Fulton MD, FACC (Electronically Signed) Final Date:19 June 2018 18:34
[2018-06-19 20:33] LABS: Troponin I 0.05 ng/mL (0.02-0.05)
[2018-06-19 20:45] LABS: CKMB Percent 0.8 % (0.0-4.0); Creatine Kinase MB 3.7 ng/mL (0.5-3.6)
[2018-06-19] MEDS ORDERED: OMEGA DHA EPA FISH OIL PO SCH (21:00)
[2018-06-19] MEDS: oxyCODONE/Acetaminophen 10/325 Tablet PO PRN (21:00)
[2018-06-19] MEDS ORDERED: SULINDAC 150 MG PO SCH (21:00)
[2018-06-19] MEDS: Senna/Docusate Sodium 8.6/50 MG Tablet PO SCH (21:05)
[2018-06-19] MEDS: Metoprolol Tartrate 25 MG Tablet PO SCH (21:06)
[2018-06-20] MEDS: Sod Chloride 0.9% Inj 1,000 ML IV.CONT SCH ×2 (01:27→13:50)
[2018-06-20 02:13] LABS: Troponin I 0.06 ng/mL (0.02-0.05)
[2018-06-20 02:25] LABS: CKMB Percent 0.7 % (0.0-4.0); Creatine Kinase MB 2.9 ng/mL (0.5-3.6)
[2018-06-20] MEDS: Insulin NovoLOG Aspart Correctional Sugar Inj SQ SCH ×5 (02:53→22:31)
[2018-06-20] MEDS: Enoxaparin Inj 100 MG/ML Syringe SQ SCH ×2 (04:58→18:43)
[2018-06-20 07:47] LABS: Baso % (Auto) 0.9 % (0.0-2.0); Eos # (Auto) 0.1 th/mm3 (0.0-0.4); Hematocrit 39.3 % (39.0-51.0); Hemoglobin 13.4 gm/dL (13.0-17.0); Lymph # (Auto) 1.5 th/mm3 (1.0-4.8); Lymph % (Auto) 32.5 % (9.0-44.0); Mean Corpuscular HGB Conc 34.2 % (32.0-36.0); Mean Corpuscular Hemoglobin 31.5 pg (27.0-34.0); Mean Platelet Volume 8.8 fL (7.0-11.0); Mono # (Auto) 0.4 th/mm3 (0.0-0.9); Mono % (Auto) 9.1 % (0.0-8.0); Neut # (Auto) 2.5 th/mm3 (1.8-7.7); Neut % (Auto) 54.5 % (16.0-70.0); Platelet Count 130 th/mm3 (150-450); Red Blood Count 4.27 mil/mm3 (4.50-5.90); White Blood Count 4.6 th/mm3 (4.0-11.0)
[2018-06-20 07:54] LABS: INR 1.1 Ratio
[2018-06-20 08:16] LABS: Alanine Aminotransferase 18 U/L (12-78); Albumin 2.5 g/dL (3.4-5.0); Anion Gap 9 meq/L (5-15); Aspartate Aminotransferase 38 U/L (15-37); Blood Urea Nitrogen 21 mg/dL (7-18); Calcium 8.3 mg/dL (8.5-10.1); Carbon Dioxide 25.8 meq/L (21.0-32.0); Chloride 108 meq/L (98-107); Glomerular Filtration Rate 61 mL/min (>89); Glucose,Random 132 mg/dL (74-106); Magnesium 1.9 mg/dL (1.5-2.5); Phosphorus 2.7 mg/dL (2.5-4.9); Potassium 3.5 meq/L (3.5-5.1); Sodium 143 meq/L (136-145)
[2018-06-20 08:19] LABS: Alkaline Phosphatase 68 U/L (45-117); Total Protein 5.3 g/dL (6.4-8.2)
[2018-06-20] MEDS: Aspirin 325 MG Tablet PO SCH (09:45)
[2018-06-20] MEDS: Metoprolol Tartrate 25 MG Tablet PO SCH ×2 (09:45→22:33)
[2018-06-20] MEDS: Senna/Docusate Sodium 8.6/50 MG Tablet PO SCH ×2 (09:46→22:32)
[2018-06-20] MEDS: Magnesium Oxide 400 MG Tablet PO SCH (09:47)
[2018-06-20] MEDS: Multivitamin/Minerals Therapeutic Tablet PO SCH (09:55)
[2018-06-20] MEDS: Lactobacillus Acidophilus/L. Spores Tablet PO SCH (09:55)
[2018-06-20] MEDS: Digoxin 125 MCG Tablet PO SCH (10:33)
--- NOTE | 2018-06-20 12:28 | P.PNCA ---
<Apurva Weeks N - Last Filed: 06/20/18 12:37> Subjective Interval history: Patient currently sitting up eating breakfast. Patient denies any chest pain, pressure, palpitations, dizziness, edema or shortness of breath. Patient states that he thinks his weakness is improving. Physical Exam Vital signs: Vital Signs 06/19/18 13:00 06/19/18 14:40 06/19/18 15:14 Temperature 98.7 F 98.6 F 98.7 F Pulse Rate 108 H 80 101 H Respiratory Rate 18 18 Blood Pressure 132/71 125/88 Pulse Oximetry 98 98 100 06/19/18 16:19 06/19/18 20:10 06/19/18 20:11 Temperature 98.9 F Pulse Rate 93 H 98 H Respiratory Rate 18 18 Blood Pressure 119/74 126/58 L Pulse Oximetry 99 99 06/19/18 22:16 06/19/18 22:17 06/20/18 01:35 Temperature Pulse Rate 89 67 Respiratory Rate 16 Blood Pressure 144/74 H 104/57 L Pulse Oximetry 98 06/20/18 04:59 06/20/18 07:34 Temperature Pulse Rate 78 69 Respiratory Rate 18 18 Blood Pressure 118/58 L 109/63 Pulse Oximetry 98 100 Intake & Output 06/19/18 06/20/18 06/20/18 18:59 06:59 18:59 Intake Total 1480 / 1480 Output Total 1310 / 1310 Balance 170 / 170 Weight 90.718 kg Intake: IV 1000 / 1000 NS Inj 1,000 ML @ 100 mls/hr IV 1000 / 1000 .CONT .Q10H [facility] Rx#:[id number] Oral 480 / 480 Output: Urine 1310 / 1310 Other: # Voids 4 - Constitutional no acute distress - Routine HEENT Exam Head: Present: normocephalic Eye: Present: PERRL ENT: Present: mucous membranes moist - Routine Neck Exam Present: full ROM - Routine Respiratory Exam Present: CTA bilaterally - Routine Cardiovascular Exam Present: irregular rhythm - Routine Abdominal Exam Present: soft - Routine Extremities Exam Present: full ROM, pulses intact, normal capillary refill. Absent: cyanosis, clubbing, edema - Routine Skin Exam Present: intact - Routine Neurological Exam Present: oriented X3 - Detailed Neurological Exam: Coma Scale Eye Opening: Spontaneous Verbal Response: Oriented Motor Response: Obey commands [place] Coma Scale Total: 15 - Routine Psychiatric Exam Present: normal affect Assessment and Plan - Assessment (1) Acute dehydration Code(s): E86.0 - Dehydration Status: Acute (2) Generalized weakness Code(s): R53.1 - Weakness Status: Acute (3) Atrial fibrillation Code(s): I48.91 - Unspecified atrial fibrillation Status: Acute - Plan 2D echo showed EF of 55-60%, with no structural abnormalities. CHADVAS score 3. Agree with anticoagulation with Lovenox, recommend a switch to Xarelto after discharge. Will follow patient during hospitalization. [facility] The patient was seen and evaluated by Dr. Fulton who participated in care, management and decision-making. <Carlos Fulton - Last Filed: 06/20/18 15:02> Physical Exam Vital signs: Vital Signs 06/19/18 15:14 06/19/18 16:19 06/19/18 20:10 Temperature 98.7 F 98.9 F Pulse Rate 101 H 93 H 98 H Respiratory Rate 18 Blood Pressure 125/88 119/74 126/58 L Pulse Oximetry 100 99 06/19/18 20:11 06/19/18 22:16 06/19/18 22:17 Temperature Pulse Rate 89 Respiratory Rate Blood Pressure 144/74 H Pulse Oximetry 99 98 06/20/18 01:35 06/20/18 04:59 06/20/18 07:34 Temperature Pulse Rate 67 78 69 Respiratory Rate 18 18 Blood Pressure 104/57 L 118/58 L 109/63 Pulse Oximetry 98 100 Intake & Output 06/19/18 06/20/18 06/20/18 18:59 06:59 18:59 Intake Total 1480 / 1480 1000 / 1000 Output Total 1310 / 1310 Balance 170 / 170 1000 / 1000 Weight 200 lb Intake: IV 1000 / 1000 1000 / 1000 NS Inj 1,000 ML @ 100 mls/hr IV 1000 / 1000 1000 / 1000 .CONT .Q10H [facility] Rx#:[id number] Oral 480 / 480 Output: Urine 1310 / 1310 Other: # Voids 4 Assessment and Plan - Assessment (1) Acute dehydration Code(s): E86.0 - Dehydration Status: Acute (2) Generalized weakness Code(s): R53.1 - Weakness Status: Acute (3) Atrial fibrillation Code(s): I48.91 - Unspecified atrial fibrillation Status: Acute - Attending Attestation Patient seen and examined. I reviewed and agree with the evaluation and plan as presented. Continue rate control. Recommend full anticoagulation with Xarelto. [facility] <Apurva Weeks - Last Filed: 06/20/18 12:37> (3) Atrial fibrillation Qualifiers: Atrial fibrillation type: unspecified Qualified Code(s): I48.91 - Unspecified atrial fibrillation <Carlos Fultno - Last Filed: 06/20/18 15:02> (3) Atrial fibrillation Qualifiers: Atrial fibrillation type: unspecified Qualified Code(s): I48.91 - Unspecified atrial fibrillation
--- NOTE | 2018-06-20 12:58 | ECG ---
Date Performed: 06/20/2018 Time Performed: 01:31:43 PTAGE: 72 years EKG: ATRIAL FLUTTER WITH CONTROLLED VENTRICULAR RATE ABNORMAL RHYTHM ECG PREVIOUS TRACING : 06/19/2018 19.26 DOCTOR: Keron Osborn Interpretating Date/Time 06/20/2018 12:57:17
--- NOTE | 2018-06-20 12:58 | ECG ---
Date Performed: 06/19/2018 Time Performed: 14:45:19 PTAGE: 72 years EKG: ATRIAL FIBRILLATION WITH RAPID VENTRICULAR RESPONSE SIMILIAR TO THE PRIOR TRACING ABNORMAL RHYTHM ECG PREVIOUS TRACING : 06/18/2018 16.51 DOCTOR: Keron Osborn Interpretating Date/Time 06/20/2018 12:56:23
--- NOTE | 2018-06-20 12:58 | ECG ---
Date Performed: 06/19/2018 Time Performed: 19:26:20 PTAGE: 72 years EKG: ATRIAL FLUTTER WITH RVR SIMILIAR TO THE PRIOR TRACING PVCs ABNORMAL RHYTHM ECG PREVIOUS TRACING : 06/19/2018 14.45 DOCTOR: Keron Osborn Interpretating Date/Time 06/20/2018 12:56:53
--- NOTE | 2018-06-20 16:11 | P.PNIM ---
Subjective Interval history: Patient says he is feeling right. Denies any chest pain or shortness of breath. Denies any nausea or vomiting. Physical Exam Vital signs: Vital Signs 06/19/18 16:19 06/19/18 20:10 06/19/18 20:11 Temperature 98.9 F Pulse Rate 93 H 98 H Respiratory Rate 18 18 Blood Pressure 119/74 126/58 L Pulse Oximetry 99 99 06/19/18 22:16 06/19/18 22:17 06/20/18 01:35 Temperature Pulse Rate 89 67 Respiratory Rate 16 Blood Pressure 144/74 H 104/57 L Pulse Oximetry 98 06/20/18 04:59 06/20/18 07:34 06/20/18 15:04 Temperature Pulse Rate 78 69 71 Respiratory Rate 18 18 17 Blood Pressure 118/58 L 109/63 128/68 Pulse Oximetry 98 100 100 Intake & Output 06/19/18 06/20/18 06/20/18 18:59 06:59 18:59 Intake Total 1480 / 1480 1000 / 1000 Output Total 1310 / 1310 Balance 170 / 170 1000 / 1000 Weight 90.718 kg Intake: IV 1000 / 1000 1000 / 1000 NS Inj 1,000 ML @ 100 mls/hr IV 1000 / 1000 1000 / 1000 .CONT .Q10H RICARDO Rx#:[id number] Oral 480 / 480 Output: Urine 1310 / 1310 Other: # Voids 4 Narrative: GENERAL: Patient sitting up in bed. Appears comfortable. SKIN: Warm and dry. HEAD: Normocephalic. EYES: No scleral icterus. No injection or drainage. NECK: Supple, trachea midline. No JVD. CARDIOVASCULAR: Regular rate and rhythm without murmurs, gallops, or rubs. RESPIRATORY: Breath sounds equal bilaterally. No accessory muscle use. GASTROINTESTINAL: Abdomen soft, non-tender, nondistended. MUSCULOSKELETAL: No cyanosis. Trace edema. BACK: Nontender without obvious deformity. No CVA tenderness. Results - Labs CBC & Chem 7: 06/20/18 07:15 06/20/18 07:15 Laboratory Results - last 24 hr 06/19/18 06/19/18 06/19/18 13:10 16:14 17:58 WBC RBC Hgb Hct MCV MCH MCHC RDW Plt Count MPV Neut % (Auto) Lymph % (Auto) Island % (Auto) Eos % (Auto) Baso % (Auto) Neut # (Auto) Lymph # (Auto) Island # (Auto) Eos # (Auto) Baso # (Auto) WBC Differential Differential Comment PT INR Sodium Potassium Chloride Carbon Dioxide Anion Gap BUN Creatinine Estimated GFR POC Glucose 135 H Random Glucose Hemoglobin A1c 17.0 H Calcium Phosphorus Magnesium Total Bilirubin AST ALT Alkaline Phosphatase Total Creatine Kinase CK-MB (CK-2) CK-MB (CK-2) % Troponin I Total Protein Albumin Urine Color Yellow Urine Clarity Hazy H Urine pH 5.0 Ur Specific [place] 1.016 Urine Protein 100 H Urine Glucose (UA) 150 H Urine Ketones 20 Urine Occult Blood Small H Urine Nitrate Negative Urine Bilirubin Negative Urine Urobilinogen Less than 2 Ur Leukocyte Esterase Negative Urine RBC 1 Urine WBC 1 Hyaline Casts 3 Urine Mucus Few H Micro UA Comment Culture not ind Urine Culture Comments Culture not ind 06/19/18 06/19/18 06/20/18 19:23 21:13 01:40 WBC RBC Hgb Hct MCV MCH MCHC RDW Plt Count MPV Neut % (Auto) Lymph % (Auto) Island % (Auto) Eos % (Auto) Baso % (Auto) Neut # (Auto) Lymph # (Auto) Island # (Auto) Eos # (Auto) Baso # (Auto) WBC Differential Differential Comment PT INR Sodium Potassium Chloride Carbon Dioxide Anion Gap BUN Creatinine Estimated GFR POC Glucose 408 H Random Glucose Hemoglobin A1c Calcium Phosphorus Magnesium Total Bilirubin AST ALT Alkaline Phosphatase Total Creatine Kinase 443 H 388 H CK-MB (CK-2) 3.7 H 2.9 CK-MB (CK-2) % 0.8 0.7 Troponin I 0.05 0.06 H Total Protein Albumin Urine Color Urine Clarity Urine pH Ur Specific [place] Urine Protein Urine Glucose (UA) Urine Ketones Urine Occult Blood Urine Nitrate Urine Bilirubin Urine Urobilinogen Ur Leukocyte Esterase Urine RBC Urine WBC Hyaline Casts Urine Mucus Micro UA Comment Urine Culture Comments 06/20/18 06/20/18 06/20/18 02:45 07:15 07:15 WBC 4.6 RBC 4.27 L Hgb 13.4 Hct 39.3 MCV 92.0 MCH 31.5 MCHC 34.2 RDW 14.0 Plt Count 130 L MPV 8.8 Neut % (Auto) 54.5 Lymph % (Auto) 32.5 Island % (Auto) 9.1 H Eos % (Auto) 3.0 Baso % (Auto) 0.9 Neut # (Auto) 2.5 Lymph # (Auto) 1.5 Island # (Auto) 0.4 Eos # (Auto) 0.1 Baso # (Auto) 0.0 WBC Differential . Differential Comment Auto diff final PT 11.0 INR 1.1 Sodium Potassium Chloride Carbon Dioxide Anion Gap BUN Creatinine Estimated GFR POC Glucose 250 H Random Glucose Hemoglobin A1c Calcium Phosphorus Magnesium Total Bilirubin AST ALT Alkaline Phosphatase Total Creatine Kinase CK-MB (CK-2) CK-MB (CK-2) % Troponin I Total Protein Albumin Urine Color Urine Clarity Urine pH Ur Specific [place] Urine Protein Urine Glucose (UA) Urine Ketones Urine Occult Blood Urine Nitrate Urine Bilirubin Urine Urobilinogen Ur Leukocyte Esterase Urine RBC Urine WBC Hyaline Casts Urine Mucus Micro UA Comment Urine Culture Comments 06/20/18 06/20/18 06/20/18 07:15 09:38 12:04 WBC RBC Hgb Hct MCV MCH MCHC RDW Plt Count MPV Neut % (Auto) Lymph % (Auto) Island % (Auto) Eos % (Auto) Baso % (Auto) Neut # (Auto) Lymph # (Auto) Island # (Auto) Eos # (Auto) Baso # (Auto) WBC Differential Differential Comment PT INR Sodium 143 Potassium 3.5 Chloride 108 H Carbon Dioxide 25.8 Anion Gap 9 BUN 21 H Creatinine 1.17 Estimated GFR 61 L POC Glucose 150 H 259 H Random Glucose 132 H Hemoglobin A1c Calcium 8.3 L Phosphorus 2.7 Magnesium 1.9 Total Bilirubin 0.6 AST 38 H ALT 18 Alkaline Phosphatase 68 Total Creatine Kinase CK-MB (CK-2) CK-MB (CK-2) % Troponin I Total Protein 5.3 L D Albumin 2.5 L Urine Color Urine Clarity Urine pH Ur Specific [place] Urine Protein Urine Glucose (UA) Urine Ketones Urine Occult Blood Urine Nitrate Urine Bilirubin Urine Urobilinogen Ur Leukocyte Esterase Urine RBC Urine WBC Hyaline Casts Urine Mucus Micro UA Comment Urine Culture Comments Assessment and Plan - Plan //Generalized weakness -We will continue with physical therapy and Occupational Therapy -May need SNF at discharge -Found in disarray at his house was stool all = We will need rehab placement. //Atrial fibrillation -We will get echo -Consult cardiology -Continue on Lovenox -Resume home medications and as needed metoprolol Admit to [facility] = Heart rate improved. On full anticoagulation. On digoxin and metoprolol. Appreciate cardiology assistance. Echocardiogram with normal ejection fraction 5560%. Transferred to telemetry floor. //Diabetes -sliding scale coverage and Accu-Cheks before meals and at bedtime -We will resume his insulin once he is tolerating a diet = Hyperglycemia with glucose in the 200s. Decreased diabetic diet to 1800 kody and start Levemir twice daily. //Osteoarthritis -Continue on pain control -Physical therapy and occupational therapy to eval and treat //Possible parkinsonian-like symptoms -Continue on his Sinemet as at home //PTSD resume his home medications Depression/anxiety //History of tobacco abuse quit 25 years ago //Gait instability/status post fall -Continue physical therapy and Occupational Therapy. Appreciate assistance. Continue on DVT prophylaxis with Lovenox GI prophylaxis as needed Cardiology has been consulted Case management has been consult Physical therapy and Occupational Therapy has been consult We will get echo and try and get his heart rate under control Patient states he only follows at the [facility] - Code Status: Full code Discussed Condition With: RN and patient and the emergency department and cardiology Discharge Planning: Pending improvement and clearance by physical therapy and Occupational Therapy and cardiology May need SNF at discharge Discharge Planning: Pending cardiology clearance We will need rehab placement.
[2018-06-20] MEDS: Insulin Detemir Inj 1,000 UNIT/10 ML Vial SQ SCH (18:44)
[2018-06-20] MEDS ORDERED: Insulin Detemir Inj 1,000 UNIT/10 ML Vial SQ SCH (21:00)
[2018-06-21] MEDS: Sod Chloride 0.9% Inj 1,000 ML IV.CONT SCH ×3 (00:57→21:43)
[2018-06-21] MEDS: Insulin NovoLOG Aspart Correctional Sugar Inj SQ SCH ×7 (03:46→21:41)
[2018-06-21] MEDS: Enoxaparin Inj 100 MG/ML Syringe SQ SCH (03:59)
--- NOTE | 2018-06-21 09:36 | P.PNIM ---
Subjective Interval history: Reports no palpitations or shortness of breath. No chest pains. Doing okay. Open to going to rehab. Physical Exam Vital signs: Vital Signs 06/20/18 15:04 06/20/18 17:47 06/20/18 20:00 Temperature 98.8 F 98.7 F Pulse Rate 71 68 84 Respiratory Rate 17 18 18 Blood Pressure 128/68 152/67 H 124/57 L Pulse Oximetry 100 100 97 06/21/18 00:00 06/21/18 01:36 06/21/18 04:00 Temperature 97.9 F 97.9 F Pulse Rate 78 70 Respiratory Rate 18 18 Blood Pressure 115/56 L 120/58 L Pulse Oximetry 98 99 Intake & Output 06/20/18 06/21/18 06/21/18 18:59 06:59 18:59 Intake Total 1000 / 1000 2000 / 2000 Output Total 250 / 250 1500 / 1500 Balance 1000 / 1000 1750 / 1750 -1500 / -1500 Weight 90.71 kg Intake: IV 1000 / 1000 2000 / 2000 NS Inj 1,000 ML @ 100 mls/hr IV 1000 / 1000 1000 / 1000 .CONT .Q10H RICARDO Rx#:[id number] Output: Urine 250 / 250 1500 / 1500 Other: # Voids 3 Date of Last Bowel Movement 06/20/18 06/20/18 # Bowel Movements 1 1 Narrative: GENERAL: This is a well-nourished, well-developed patient, in no apparent distress. CARDIOVASCULAR: Irregular irregular rate and rhythm RESPIRATORY: Clear to auscultation. Breath sounds equal bilaterally. No wheezes , rales, or rhonchi. GASTROINTESTINAL: Abdomen soft, non-tender, nondistended. Normal active bowel sounds MUSCULOSKELETAL: Extremities without clubbing, cyanosis, or edema. NEURO: Alert & Oriented x2 to person, place. Moves all ext x4 Results - Labs CBC & Chem 7: 06/20/18 07:15 06/20/18 18:15 Laboratory Results - last 24 hr 06/20/18 06/20/18 06/20/18 09:38 12:04 17:34 POC Glucose 150 H 259 H 491 H* Random Glucose 06/20/18 06/20/18 06/20/18 18:15 20:35 22:24 POC Glucose 503 H* 411 H Random Glucose 497 H* D 06/21/18 06/21/18 03:41 08:02 POC Glucose 194 H 133 H Random Glucose Assessment and Plan - Plan Patient is a 72-year-old male presented emergency department via EMS for evaluation after falling and generalized weakness. 1. Status post fall with generalized weakness -We will continue with physical therapy and Occupational Therapy -May need SNF at discharge -Found in disarray at his house was stool all 2. Atrial fibrillation with current rate control -Status post cardiology evaluation who recommended switching Lovenox to Xarelto continue on digoxin and metoprolol. -Resume home medications and as needed metoprolol Echocardiogram with normal ejection fraction 5560%. 3. Diabetes mellitus type II, uncontrolled -sliding scale coverage and Accu-Cheks before meals and at bedtime Start Levemir 25 units subcu twice daily along with adding preprandial scheduled NovoLog for glycemic control. 4. Osteoarthritis -Continue on pain control -Physical therapy and occupational therapy to eval and treat 5 Possible parkinsonian-like symptoms -Continue on his Sinemet as at home 6. PTSD resume his home medications Depression/anxiety 7. Gait instability/status post fall -Continue physical therapy and Occupational Therapy. Appreciate assistance. 8. Continue on DVT prophylaxis with Lovenox and transitioned to Xarelto today
[2018-06-21] MEDS: Aspirin 325 MG Tablet PO SCH (09:43)
[2018-06-21] MEDS: Senna/Docusate Sodium 8.6/50 MG Tablet PO SCH ×2 (09:44→21:43)
[2018-06-21] MEDS: Digoxin 125 MCG Tablet PO SCH (09:44)
[2018-06-21] MEDS: Magnesium Oxide 400 MG Tablet PO SCH (09:44)
[2018-06-21] MEDS: Insulin Detemir Inj 1,000 UNIT/10 ML Vial SQ SCH ×2 (09:44→21:41)
[2018-06-21] MEDS: Metoprolol Tartrate 25 MG Tablet PO SCH ×2 (09:44→21:43)
[2018-06-21] MEDS: Multivitamin/Minerals Therapeutic Tablet PO SCH (09:44)
[2018-06-21] MEDS: Lactobacillus Acidophilus/L. Spores Tablet PO SCH (09:44)
[2018-06-21] MEDS: Rivaroxaban 20 MG Tablet PO SCH (18:20)
[2018-06-22] MEDS: Insulin NovoLOG Aspart Correctional Sugar Inj SQ SCH ×8 (04:32→22:29)
[2018-06-22] MEDS: Sod Chloride 0.9% Inj 1,000 ML IV.CONT SCH ×3 (04:33→22:32)
[2018-06-22] MEDS: Rivaroxaban 20 MG Tablet PO SCH (08:41)
[2018-06-22] MEDS: Digoxin 125 MCG Tablet PO SCH (08:41)
[2018-06-22] MEDS: Magnesium Oxide 400 MG Tablet PO SCH (08:41)
[2018-06-22] MEDS: Metoprolol Tartrate 25 MG Tablet PO SCH ×2 (08:42→22:29)
[2018-06-22] MEDS: Senna/Docusate Sodium 8.6/50 MG Tablet PO SCH ×2 (08:42→22:29)
[2018-06-22] MEDS: Lactobacillus Acidophilus/L. Spores Tablet PO SCH (08:42)
[2018-06-22] MEDS: Aspirin 325 MG Tablet PO SCH (08:42)
[2018-06-22] MEDS: Multivitamin/Minerals Therapeutic Tablet PO SCH (08:42)
[2018-06-22] MEDS: Insulin Detemir Inj 1,000 UNIT/10 ML Vial SQ SCH ×2 (08:43→22:30)
--- NOTE | 2018-06-22 10:32 | P.PNIM ---
Subjective Interval history: Patient states that he has a hard time expressing himself at times this happened after the fall last Saturday. Nursing staff states his neighbor came in for a visit and noticed he is fine motor skills has diminished and also expressed concern of his speech which is slowed and also at times show some difficulty expressing himself and on his fluid. He had this time denies any headaches. He still complained of generalized weakness however nothing focal Physical Exam Vital signs: Vital Signs 06/21/18 12:00 06/21/18 16:00 06/21/18 20:00 Temperature 97.8 F 97.9 F 97.5 F L Pulse Rate 73 73 74 Respiratory Rate 18 Blood Pressure 148/74 H 140/63 134/62 Pulse Oximetry 97 96 97 06/22/18 00:00 06/22/18 04:00 06/22/18 08:00 Temperature 98.6 F 97.1 F L 97.6 F Pulse Rate 73 76 74 Respiratory Rate Blood Pressure 123/67 113/74 137/70 Pulse Oximetry 98 97 99 Intake & Output 06/21/18 06/22/18 06/22/18 18:59 06:59 18:59 Intake Total 1000 / 1000 1999 Output Total 1500 / 1500 400 / 400 Balance -500 / -500 1600 / 1600 Weight 90.71 kg Intake: IV 1000 / 1000 1999 / 1999 NS Inj 1,000 ML @ 100 mls/hr IV 1000 / 1000 1999 .CONT .Q10H RICARDO Rx#:[id number] Output: Urine 1500 / 1500 400 / 400 Other: Date of Last Bowel Movement 06/20/18 06/21/18 # Bowel Movements 1 Narrative: GENERAL: This is a well-nourished, well-developed patient, in no apparent distress. CARDIOVASCULAR: Irregular irregular rate and rhythm RESPIRATORY: Clear to auscultation. Breath sounds equal bilaterally. No wheezes , rales, or rhonchi. GASTROINTESTINAL: Abdomen soft, non-tender, nondistended. Normal active bowel sounds MUSCULOSKELETAL: Extremities without clubbing, cyanosis, or edema. NEURO: Alert & Oriented x2 to person, place. Moves all ext x4, mild right facial droop with some dysarthria and minimal expressive aphasia Results - Labs CBC & Chem 7: 06/20/18 07:15 06/20/18 18:15 Laboratory Results - last 24 hr 06/21/18 06/21/18 06/21/18 12:43 16:13 21:36 POC Glucose 327 H 320 H 209 H 06/22/18 06/22/18 04:25 07:22 POC Glucose 138 H 133 H Assessment and Plan - Assessment (1) Atrial fibrillation Code(s): I48.91 - Unspecified atrial fibrillation Status: Acute (2) Diabetes mellitus type 2 with complications, uncontrolled Code(s): E11.8 - Type 2 diabetes mellitus with unspecified complications; E11.65 - Type 2 diabetes mellitus with hyperglycemia Status: Acute - Plan Patient is a 72-year-old male presented emergency department via EMS for evaluation after falling and generalized weakness. 1. Status post fall with generalized weakness will need to rule out subacute CVA due to new history from neighbor and patient's dysarthria -We will continue with physical therapy and Occupational Therapy -Likely SNF at discharge -Found in disarray at his house with stool MRI of the brain to be ordered today along with carotid ultrasound Currently on aspirin and Xarelto Speech therapy will be consulted. 2. Atrial fibrillation with current rate control -Status post cardiology evaluation who recommended switching Lovenox to Xarelto continue on digoxin and metoprolol. -Resume home medications and start metoprolol Echocardiogram with normal ejection fraction 5560%. 3. Diabetes mellitus type II, uncontrolled -sliding scale coverage and Accu-Cheks before meals and at bedtime Start Levemir 25 units subcu twice daily along with adding preprandial scheduled NovoLog 5 units subcu 3 times daily for glycemic control. Patient has poor hemoglobin A1c of greater than 11 4. Osteoarthritis -Continue on pain control -Physical therapy and occupational therapy to eval and treat 5 Possible parkinsonian-like symptoms -Continue on his Sinemet as at home 6. PTSD resume his home medications Depression/anxiety 7. Gait instability/status post fall, rule out CVA -Continue physical therapy and Occupational Therapy. Appreciate assistance. 8. 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
--- NOTE | 2018-06-22 12:11 | MR ---
EXAM DATE: 06/22/2018 12:03 PM EDT AGE/SEX: 72 years / Male INDICATIONS: Frequent falls. Expressive aphasia. CLINICAL DATA: This is the patient's initial encounter. Patient reports that signs and symptoms have been present for 4 - 6 days and indicates a pain score of 0/10. MEDICAL/SURGICAL HISTORY: Diabetes mellitus type II. Hypertension. Tonsillectomy. COMPARISON: [facility] [place], CT HEAD W/O CONTRAST, 06/18/2018. . TECHNIQUE: Multiplanar, multisequence examination of the brain was performed without contrast. FINDINGS: Cerebrum: There is mild generalized atrophy with ventricular size within normal limits given the degr ee of atrophy. No midline shift, mass lesion, or hemorrhage. No extraaxial fluid collections are se en. The pituitary gland and suprasellar cistern are normal in configuration. White Matter: There is mild periventricular and subcortical white matter signal change. Posterior Fossa: There is a focal increased FLAIR and T2 signal within the left florentin measuring approx imately 1.7 x 0.8 x 1.3 cm. This is associated with restricted diffusion. Cerebellum demonstrates no abnormality. Diffusion Imaging: Focal restricted diffusion associated with the edema in the left floerntin. No other a reas of restricted diffusion is identified. Extracranial: The visualized sinuses are clear. CONCLUSION: 1. Recent left pontine infarct, as above. 2. Chronic findings include generalized cerebral atrophy and mild to moderate periventricular white matter change. Electronically signed by: Simon Louis MD 06/22/2018 12:10 PM EDT
[2018-06-22] MEDS ORDERED: Dextrose 50% in Water 50 ML Vial IV.PUSH PRN (14:19)
[2018-06-22] MEDS: oxyCODONE/Acetaminophen 10/325 Tablet PO PRN (18:13)
[2018-06-23] MEDS: oxyCODONE/Acetaminophen 10/325 Tablet PO PRN ×2 (04:59→19:07)
[2018-06-23] MEDS: Insulin NovoLOG Aspart Correctional Sugar Inj SQ SCH ×8 (05:00→22:59)
[2018-06-23 07:11] LABS: Chol/HDL Ratio 6.86 Ratio; HDL Cholesterol 27.1 mg/dL (40.0-60.0)
[2018-06-23] MEDS: Rivaroxaban 20 MG Tablet PO SCH (09:35)
[2018-06-23] MEDS: Aspirin 325 MG Tablet PO SCH (09:37)
[2018-06-23] MEDS: Metoprolol Tartrate 25 MG Tablet PO SCH ×2 (09:37→22:52)
[2018-06-23] MEDS: Senna/Docusate Sodium 8.6/50 MG Tablet PO SCH ×2 (09:37→22:50)
[2018-06-23] MEDS: Magnesium Oxide 400 MG Tablet PO SCH (09:38)
[2018-06-23] MEDS: Multivitamin/Minerals Therapeutic Tablet PO SCH (09:38)
[2018-06-23] MEDS: Digoxin 125 MCG Tablet PO SCH (09:38)
[2018-06-23] MEDS: Lactobacillus Acidophilus/L. Spores Tablet PO SCH (09:38)
[2018-06-23] MEDS: Insulin Detemir Inj 1,000 UNIT/10 ML Vial SQ SCH ×2 (09:39→22:58)
--- NOTE | 2018-06-23 10:27 | US ---
EXAM DATE: 06/23/2018 10:22 AM EDT AGE/SEX: 72 years / Male INDICATIONS: Difficulty speaking and expressing thoughts. CLINICAL DATA: This is the patient's initial encounter. Patient reports that signs and symptoms have been present for 1 week and indicates a pain score of 10/10. MEDICAL/SURGICAL HISTORY: Diabetes. Arteriolosclerosis. A-fib. Obesity. Tonsillectomy. COMPARISON: No prior exams available for comparison. VELOCITY PARAMETERS: ICA/CCA Ratio: Right 1.4 , Left 0.56 ICA: Right 118 cm/sec, Left 95 cm/sec CCA: Right 82 cm/sec, Left 168 cm/sec ECA: Right 170 cm/sec, Left 174 cm/sec Vertebral: Right 68 cm/sec antegrade, Left 92 cm/sec antegrade FINDINGS: Right Carotid: Mild arteriosclerotic plaque is visualized.The waveforms are within normal limits. Left Carotid: Moderate arteriosclerotic plaque is visualized. The waveforms are within normal limits . Other: None. CONCLUSION: Right Internal Carotid Artery: No evidence of hemodynamically significant lesion with less than 50% s tenosis. Left Internal Carotid Artery: No evidence of hemodynamically significant lesion with less than 50% st enosis. Electronically signed by: Lazaro Mejia MD 06/23/2018 10:26 AM EDT
--- NOTE | 2018-06-23 11:52 | P.PNIM ---
Subjective Interval history: Discussed with the patient results of MRI of the brain with results of a pontine stroke. Will consult neurology and rehab medicine and continue with Xarelto with history of atrial fibrillation. Continue with speech therapy, occupational therapy and physical therapy. Patient would benefit from inpatient rehab placement. WILL NEED PT AND OT AND SPEECH DUE TO POSITIVE CVA ON MRI HAS WOUND RIGHT KNEE- CONSULT WOUND CARE TO EVAL AND TREAT Physical Exam Vital signs: Vital Signs 06/22/18 12:00 06/22/18 16:00 06/22/18 19:34 Temperature 97.8 F 97.8 F Pulse Rate 73 75 Respiratory Rate 17 17 20 Blood Pressure 124/69 109/50 L Pulse Oximetry 97 97 06/22/18 20:00 06/22/18 20:45 06/23/18 00:00 Temperature 97.8 F 97.2 F L Pulse Rate 88 74 Respiratory Rate 18 20 18 Blood Pressure 117/60 138/68 Pulse Oximetry 96 98 06/23/18 04:00 06/23/18 05:32 06/23/18 08:00 Temperature 97.3 F L 97.7 F Pulse Rate 72 75 Respiratory Rate 18 20 14 Blood Pressure 125/66 115/60 Pulse Oximetry 98 97 Intake & Output 06/22/18 06/23/18 06/23/18 18:59 06:59 18:59 Intake Total 2200 / 2200 Output Total 2124 / 2124 Balance 75 / 75 -1999 Intake: IV 1000 / 1000 NS Inj 1,000 ML @ 100 mls/hr IV 1000 / 1000 .CONT .Q10H RICARDO Rx#:[id number] Oral 1200 / 1200 Output: Urine 2124 / 2124 Other: Date of Last Bowel Movement 06/22/18 # Bowel Movements 0 1 Narrative: GENERAL: This is a well-nourished, well-developed patient, in no apparent distress. CARDIOVASCULAR: Irregular irregular rate and rhythm S1, S2 NO S3 OR S4 RESPIRATORY: Clear to auscultation. Breath sounds equal bilaterally. No wheezes , rales, or rhonchi. GASTROINTESTINAL: Abdomen soft, non-tender, nondistended. Normal active bowel sounds MUSCULOSKELETAL: Extremities without clubbing, cyanosis, or edema. NEURO: Alert & Oriented x2 to person, place. Moves all ext x4, mild right facial droop with some dysarthria and minimal expressive aphasia Results - Labs CBC & Chem 7: 06/20/18 07:15 06/20/18 18:15 Laboratory Results - last 24 hr 06/22/18 06/22/18 06/23/18 17:03 22:21 04:47 POC Glucose 262 H 301 H 192 H Triglycerides Cholesterol LDL Cholesterol, Calc HDL Cholesterol Cholesterol/HDL Ratio 06/23/18 06/23/18 05:54 07:54 POC Glucose 220 H Triglycerides 182 H Cholesterol 186 LDL Cholesterol, Calc 123 H HDL Cholesterol 27.1 L Cholesterol/HDL Ratio 6.86 - Imaging Impressions Head MRI 06/22/18 00:00 CONCLUSION: 1. Recent left pontine infarct, as above. 2. Chronic findings include generalized cerebral atrophy and mild to moderate periventricular white matter change. Carotid Doppler Study 06/23/18 00:00 CONCLUSION: Right Internal Carotid Artery: No evidence of hemodynamically significant lesion with less than 50% stenosis. Left Internal Carotid Artery: No evidence of hemodynamically significant lesion with less than 50% stenosis. Assessment and Plan - Assessment (1) Atrial fibrillation Code(s): I48.91 - Unspecified atrial fibrillation Status: Acute (2) Diabetes mellitus type 2 with complications, uncontrolled Code(s): E11.8 - Type 2 diabetes mellitus with unspecified complications; E11.65 - Type 2 diabetes mellitus with hyperglycemia Status: Acute - Plan Patient is a 72-year-old male presented emergency department via EMS for evaluation after falling and generalized weakness. 1. Status post fall with generalized weakness will need to rule out subacute CVA due to new history from neighbor and patient's dysarthria -We will continue with physical therapy and Occupational Therapy -Likely SNF at discharge -Found in disarray at his house with stool MRI of the brain to be ordered today along with carotid ultrasound Currently on aspirin and Xarelto Speech therapy will be consulted. POSITIVE MRI- NEUROLOGY CONSULTED WILL NEED XARELTO FOREVER 2. Atrial fibrillation with current rate control -Status post cardiology evaluation who recommended switching Lovenox to Xarelto continue on digoxin and metoprolol. -Resume home medications and start metoprolol Echocardiogram with normal ejection fraction 5560%. CONTINUE XARELTO 3. Diabetes mellitus type II, uncontrolled -sliding scale coverage and Accu-Cheks before meals and at bedtime Start Levemir 25 units subcu twice daily along with adding preprandial scheduled NovoLog 5 units subcu 3 times daily for glycemic control. Patient has poor hemoglobin A1c of greater than 11 4. Osteoarthritis -Continue on pain control -Physical therapy and occupational therapy to eval and treat 5 Possible parkinsonian-like symptoms -Continue on his Sinemet as at home 6. PTSD resume his home medications Depression/anxiety 7. Gait instability/status post fall, rule out CVA -Continue physical therapy and Occupational Therapy. Appreciate assistance. POSITIVE CVA ON MRI 8. Continue on DVT prophylaxis with Xarelto - WOUND CARE TO EVAL RIGHT KNEE Code Status: FULL CODE Discussed Condition With: RN AND PT AND CM Discharge Planning: Pending improvement and clearance by physical therapy and Occupational Therapy and NEUROLOGY May need SNF [facility] at discharge (1) Atrial fibrillation Qualifiers: Atrial fibrillation type: unspecified Qualified Code(s): I48.91 - Unspecified atrial fibrillation (2) Diabetes mellitus type 2 with complications, uncontrolled Qualifiers: Diabetes mellitus superintendent container terminal insulin use: with snf use Qualified Code(s) : E11.8 - Type 2 diabetes mellitus with unspecified complications; E11.65 - Type 2 diabetes mellitus with hyperglycemia; Z79.4 - intermediate (current) use of insulin
--- NOTE | 2018-06-23 12:08 | P.PNCA ---
<Apurva Weeks N - Last Filed: 06/23/18 12:05> Subjective Interval history: Pt denies any chest pain, pressure, palpitations, or shortness of breath. Complains of dizziness when getting up to quickly. Physical Exam Vital signs: Vital Signs 06/22/18 16:00 06/22/18 19:34 06/22/18 20:00 Temperature 97.8 F 97.8 F Pulse Rate 75 88 Respiratory Rate 17 20 18 Blood Pressure 109/50 L 117/60 Pulse Oximetry 97 96 06/22/18 20:45 06/23/18 00:00 06/23/18 04:00 Temperature 97.2 F L 97.3 F L Pulse Rate 74 72 Respiratory Rate 20 18 18 Blood Pressure 138/68 125/66 Pulse Oximetry 98 98 06/23/18 05:32 06/23/18 08:00 Temperature 97.7 F Pulse Rate 75 Respiratory Rate 20 14 Blood Pressure 115/60 Pulse Oximetry 97 Intake & Output 06/22/18 06/23/18 06/23/18 18:59 06:59 18:59 Intake Total 2200 / 2200 Output Total 2125 / 2125 1999 Balance 75 / 75 -1999 Intake: IV 1000 / 1000 NS Inj 1,000 ML @ 100 mls/hr IV 1000 / 1000 .CONT .Q10H RICARDO Rx#:[id number] Oral 1200 / 1200 Output: Urine 5 / 2125 1999 Other: Date of Last Bowel Movement 06/22/18 # Bowel Movements 0 1 - Constitutional no acute distress - Routine HEENT Exam Head: Present: normocephalic Eye: Present: PERRL ENT: Present: mucous membranes moist - Routine Neck Exam Present: full ROM - Routine Respiratory Exam Present: CTA bilaterally - Routine Cardiovascular Exam Present: S1, S2, irregular rhythm. Absent: murmur, gallop, rubs - Routine Abdominal Exam Present: normoactive bowel sounds - Routine Extremities Exam Present: full ROM, pulses intact, normal capillary refill. Absent: cyanosis, clubbing, edema - Routine Skin Exam Present: intact - Routine Neurological Exam Present: oriented X3 - Detailed Neurological Exam: Coma Scale Eye Opening: Spontaneous Verbal Response: Oriented Motor Response: Obey commands [place] Coma Scale Total: 15 - Routine Psychiatric Exam Present: normal affect Assessment and Plan - Assessment (1) Acute dehydration Code(s): E86.0 - Dehydration Status: Acute (2) Generalized weakness Code(s): R53.1 - Weakness Status: Acute (3) Atrial fibrillation Code(s): I48.91 - Unspecified atrial fibrillation Status: Acute - Plan Continue current cardiac treatment plan and adjust as needed. Agree with anticoagulation with Lovenox, recommend a switch to Xarelto after discharge. Will follow patient during hospitalization. [facility] The patient was seen and evaluated by Dr. Fulton who participated in care, management and decision-making. <Carlos Fulton - Last Filed: 06/23/18 16:42> Physical Exam Vital signs: Vital Signs 06/22/18 19:34 06/22/18 20:00 06/22/18 20:45 Temperature 97.8 F Pulse Rate 88 Respiratory Rate 20 18 20 Blood Pressure 117/60 Pulse Oximetry 96 06/23/18 00:00 06/23/18 04:00 06/23/18 05:32 Temperature 97.2 F L 97.3 F L Pulse Rate 74 72 Respiratory Rate 18 18 20 Blood Pressure 138/68 125/66 Pulse Oximetry 98 98 06/23/18 08:00 06/23/18 12:00 Temperature 97.7 F 97.8 F Pulse Rate 75 74 Respiratory Rate 14 14 Blood Pressure 115/60 132/67 Pulse Oximetry 97 98 Intake & Output 06/22/18 06/23/18 06/23/18 18:59 06:59 18:59 Intake Total 2200 / 2200 Output Total 2124 / 2125 1999 Balance 75 / 75 -1999 Intake: IV 1000 / 1000 NS Inj 1,000 ML @ 100 mls/hr IV 1000 / 1000 .CONT .Q10H RICARDO Rx#:[id number] Oral 1200 / 1200 Output: Urine 2124 / 5 1999 Other: Date of Last Bowel Movement 06/22/18 # Bowel Movements 0 1 Assessment and Plan - Assessment (1) Acute dehydration Code(s): E86.0 - Dehydration Status: Acute (2) Generalized weakness Code(s): R53.1 - Weakness Status: Acute (3) Atrial fibrillation Code(s): I48.91 - Unspecified atrial fibrillation Status: Acute - Attending Attestation Patient seen and examined. I reviewed and agree with the evaluation and plan as presented. Continue anticoagulation[facility] <Apurva Weeks - Last Filed: 06/23/18 12:05> (3) Atrial fibrillation Qualifiers: Atrial fibrillation type: unspecified Qualified Code(s): I48.91 - Unspecified atrial fibrillation <Carlos Fulton - Last Filed: 06/23/18 16:42> (3) Atrial fibrillation Qualifiers: Atrial fibrillation type: unspecified Qualified Code(s): I48.91 - Unspecified atrial fibrillation
[2018-06-23 14:36] LABS: Hemoglobin A1c 16.5 % (4.3-6.0)
--- NOTE | 2018-06-23 15:35 | MB ---
cc: Carlos Marquis MD, PhD DATE: 06/23/2018 REASON FOR CONSULTATION: Stroke. HISTORY OF PRESENT ILLNESS: Mr. Acosta is a 72-year-old man who has a history of atrial fibrillation, who came to the hospital after he was weak all over, falling, had 1 episode of bowel incontinence. Initially, after presenting to the ER, he left AMA, but then returned after he fell. As part of his evaluation, he had a brain MRI, which revealed a small acute stroke on the left side of the florentin with focal restricted diffusion. No other areas of restricted diffusion identified. There is no hemorrhage. He denies any focal weakness or double vision, but does relate slurred speech. States he is weak all over. Denies history of stroke in the past. PAST MEDICAL HISTORY: Remarkable for history of atrial fibrillation, arteriosclerosis, diabetes, dysthymic disorder, hypomagnesemia, PTSD, tonsillectomy. MEDICATIONS: Currently are: 1. Rayna-Colace. 2. Senokot. 3. Vitamin D3. 4. Xarelto 20 mg daily. 5. Percocet for pain. 6. Narcan p.r.n. 7. Morphine p.r.n. pain. 8. Lopressor p.r.n. 9. Antivert. 10. Lactulose. 11. Insulin. 12. Vasotec. 13. Lanoxin. 14. Sinemet 25/100 two b.i.d. 15. Dulcolax. 16. Lipitor. 17. Aspirin 325 mg daily. 18. Tylenol p.r.n. PHYSICAL EXAMINATION: VITAL SIGNS: Blood pressure is 138/68, pulse 74, respirations 18, temperature 97.2 degrees. NEUROLOGIC: He is alert, oriented. Speech is somewhat dysarthric. Cranial nerves are intact. The extraocular movements are normal. The pupils are equal and reactive. Motor exam: He has got 4/5 strength of both upper and lower extremities. There is no drift. Fine motor skills were normal. Reflexes are symmetric. IMAGING STUDIES: MRI of the brain shows a small lacunar stroke in the left florentin. LABORATORY DATA: White count 4600, hemoglobin 13.4, hematocrit 39.3%, platelet count 130,000. PT 10.5. INR 1, aPTT 22.2. Sodium 143, potassium 4.1, CO2 of 21.3. The BUN is 21, creatinine is 1.17, LDL 103, HDL 27.1, cholesterol 186. IMPRESSION AND PLAN: Pontine stroke with history of atrial fibrillation, I agree with Mj. I would like to get an MRA of the brain, as well as the neck, as well as an echocardiogram. Continue statin because of the elevated LDL. Recommend physical therapy consult. Carlos Marquis MD, PhD JENA/beau , 02:47 PM , 02:55 PM
[2018-06-23] MEDS ORDERED: Gadobutrol PF 10 MMOL/10 ML Vial (for RAD) IV.SIG ONE (16:07)
--- NOTE | 2018-06-23 17:24 | MR ---
EXAM DATE: 06/23/2018 5:18 PM EDT AGE/SEX: 72 years / Male INDICATIONS: . Difficulty speaking. Recent falls. CLINICAL DATA: This is the patient's subsequent encounter. Patient reports that signs and symptoms h ave been present for 4 - 6 days and indicates a pain score of 0/10. MEDICAL/SURGICAL HISTORY: Diabetes mellitus type II. Hypertension. Tonsillectomy. COMPARISON: [facility] [place] W/O [place]AST, 06/22/2018. . TECHNIQUE: 3D [id number] MRA was performed. Source images, multiplanar STS MIP, and 3D volum e MIP reconstructions were reviewed. FINDINGS: There is excellent visualization of the major intracranial arteries out to the second-order branch ve ssels. There is no evidence for aneurysm, vessel truncation or stenosis, and no evidence for vascula r malformation. CONCLUSION: No intracranial vascular abnormality is identified. Electronically signed by: Simon Louis MD 06/23/2018 5:23 PM EDT
--- NOTE | 2018-06-23 17:28 | MR ---
EXAM DATE: 06/23/2018 5:19 PM EDT AGE/SEX: 72 years / Male INDICATIONS: . Difficulty speaking. Recent falls. CLINICAL DATA: This is the patient's subsequent encounter. Patient reports that signs and symptoms h ave been present for 4 - 6 days and indicates a pain score of 0/10. MEDICAL/SURGICAL HISTORY: Diabetes mellitus type II. Hypertension. Tonsillectomy. COMPARISON: [facility] – [place], [place] CAROTID DOPPLER BI, 06/23/2018. . TECHNIQUE: 10 ml Gadavist (gadobutrol) contrast infused MRA (single exam dose) of the extracranial circulation was performed using a neurovascular coil. Postprocessing was performed, including rotati ng sub-volume maximum intensity projections of each carotid artery, rotating full-volume maximum inte nsity projections of both carotid arteries, sagittal and coronal sliding thin-slab reformations of ea ch carotid artery, and left oblique sliding thin-slab reformation through the aortic arch to include the origin of the arch branch vessels. FINDINGS: Aortic Arch : There is a three-vessel origin of the great vessels from the aorta. No evidence of o stial narrowing. Right Carotid : The right common carotid artery demonstrates no significant stenosis. There is mild luminal irregularity in the carotid bulb. No significant stenosis is identified. Left Carotid : The common carotid artery is within normal limits. There is mild luminal irregularity in the carotid bulb and proximal internal carotid artery with less than 50% stenosis. Vertebrals : The vertebral arteries have a symmetric diameter. No stenotic lesions are seen. CONCLUSION: 1. Mild atherosclerotic disease within the carotid bulbs bilaterally but no significant stenosis is identified. 2. Both vertebral arteries are patent. Percent stenosis is calculated using the diameter of the stenotic region over the diameter of the nor mal distal internal carotid artery Electronically signed by: Simon Louis MD 06/23/2018 5:27 PM EDT
[2018-06-23] MEDS: Sod Chloride 0.9% Inj 1,000 ML IV.CONT SCH ×2 (22:49→23:07)
[2018-06-24] MEDS: Sod Chloride 0.9% Inj 1,000 ML IV.CONT SCH ×2 (06:01→19:06)
[2018-06-24] MEDS: Insulin NovoLOG Aspart Correctional Sugar Inj SQ SCH ×6 (06:04→13:27)
[2018-06-24] MEDS: oxyCODONE/Acetaminophen 10/325 Tablet PO PRN ×2 (06:07→17:33)
[2018-06-24] MEDS: Metoprolol Tartrate 25 MG Tablet PO SCH (09:09)
[2018-06-24] MEDS: Senna/Docusate Sodium 8.6/50 MG Tablet PO SCH (09:09)
[2018-06-24] MEDS: Lactobacillus Acidophilus/L. Spores Tablet PO SCH (09:09)
[2018-06-24] MEDS: Insulin Detemir Inj 1,000 UNIT/10 ML Vial SQ SCH (09:09)
[2018-06-24] MEDS: Multivitamin/Minerals Therapeutic Tablet PO SCH (09:09)
[2018-06-24] MEDS: Digoxin 125 MCG Tablet PO SCH (09:09)
[2018-06-24] MEDS: Magnesium Oxide 400 MG Tablet PO SCH (09:09)
[2018-06-24] MEDS: Aspirin 325 MG Tablet PO SCH (09:09)
[2018-06-24] MEDS: Rivaroxaban 20 MG Tablet PO SCH (09:09)
[2018-06-24 10:26] LABS: Baso % (Auto) 0.6 % (0.0-2.0); Eos # (Auto) 0.1 th/mm3 (0.0-0.4); Eos % (Auto) 3.1 % (0.0-4.0); Hematocrit 35.9 % (39.0-51.0); Lymph % (Auto) 26.1 % (9.0-44.0); Mean Corpuscular HGB Conc 33.5 % (32.0-36.0); Mean Corpuscular Hemoglobin 31.8 pg (27.0-34.0); Mean Corpuscular Volume 94.9 fL (80.0-100.0); Mean Platelet Volume 9.2 fL (7.0-11.0); Mono # (Auto) 0.4 th/mm3 (0.0-0.9); Mono % (Auto) 11.5 % (0.0-8.0); Neut # (Auto) 2.2 th/mm3 (1.8-7.7); Neut % (Auto) 58.7 % (16.0-70.0); Platelet Count 111 th/mm3 (150-450); Red Blood Count 3.79 mil/mm3 (4.50-5.90); White Blood Count 3.7 th/mm3 (4.0-11.0)
[2018-06-24 10:45] LABS: Albumin 2.3 g/dL (3.4-5.0); Anion Gap 8 meq/L (5-15); Aspartate Aminotransferase 35 U/L (15-37); Blood Urea Nitrogen 12 mg/dL (7-18); Carbon Dioxide 24.8 meq/L (21.0-32.0); Chloride 110 meq/L (98-107); Glomerular Filtration Rate 77 mL/min (>89); Glucose,Random 149 mg/dL (74-106); Magnesium 1.6 mg/dL (1.5-2.5); Sodium 143 meq/L (136-145)
[2018-06-24 10:46] LABS: Alanine Aminotransferase 12 U/L (12-78); Phosphorus 2.7 mg/dL (2.5-4.9)
[2018-06-24 10:48] LABS: Alkaline Phosphatase 75 U/L (45-117); Total Protein 5.3 g/dL (6.4-8.2)
--- NOTE | 2018-06-24 13:54 | P.PNCA ---
<Apurva Weeks N - Last Filed: 06/24/18 13:46> Subjective Interval history: Patient denies any chest pain, pressure, palpitation, dizziness, and edema or shortness of breath. Patient is sitting up in chair and states that he feels pretty good but needs to get his strength back. Physical Exam Vital signs: Vital Signs 06/23/18 20:00 06/23/18 21:00 06/24/18 08:00 Temperature 98.2 F 98.2 F Pulse Rate 75 75 72 Respiratory Rate 18 18 Blood Pressure 127/60 129/63 Pulse Oximetry 98 97 06/24/18 12:00 Temperature 98.1 F Pulse Rate 66 Respiratory Rate 14 Blood Pressure 96/53 L Pulse Oximetry 95 Intake & Output 06/23/18 06/24/18 06/24/18 18:59 06:59 18:59 Intake Total 1000 / 1000 Output Total 840 / 840 Balance 160 / 160 Intake: IV 1000 / 1000 NS Inj 1,000 ML @ 100 mls/hr IV 1000 / 1000 .CONT .Q10H RICARDO Rx#:[id number] Output: Urine 840 / 840 Other: # Voids 3 Date of Last Bowel Movement 06/22/18 Weight On Admission 90.7 kg - Constitutional no acute distress - Routine HEENT Exam Head: Present: normocephalic Eye: Present: PERRL ENT: Present: mucous membranes moist - Routine Neck Exam Present: full ROM - Routine Respiratory Exam Present: CTA bilaterally - Routine Cardiovascular Exam Present: irregular rhythm. Absent: murmur, gallop, rubs - Routine Abdominal Exam Present: soft - Routine Extremities Exam Present: full ROM, pulses intact, normal capillary refill. Absent: cyanosis, clubbing, edema - Routine Skin Exam Present: intact - Routine Neurological Exam Present: oriented X3 - Detailed Neurological Exam: Coma Scale Eye Opening: Spontaneous Verbal Response: Oriented Motor Response: Obey commands [place] Coma Scale Total: 15 - Routine Psychiatric Exam Present: normal affect Assessment and Plan - Assessment (1) Acute dehydration Code(s): E86.0 - Dehydration Status: Acute (2) Generalized weakness Code(s): R53.1 - Weakness Status: Acute (3) Atrial fibrillation Code(s): I48.91 - Unspecified atrial fibrillation Status: Acute - Plan Patient is very alert, vital signs are stable, atrial flutter at a controlled rate. Continue with current cardiac treatment plan. Encourage patient to increase activity and exercise while in the bed to help improve his strength. Will follow patient during hospitalization. [facility] The patient was seen and evaluated by Dr. Fulton who participated in care, management and decision-making. <Carlos Fulton - Last Filed: 06/24/18 14:01> Physical Exam Vital signs: Vital Signs 06/23/18 20:00 06/23/18 21:00 06/24/18 08:00 Temperature 98.2 F 98.2 F Pulse Rate 75 75 72 Respiratory Rate 18 18 Blood Pressure 127/60 129/63 Pulse Oximetry 98 97 06/24/18 12:00 Temperature 98.1 F Pulse Rate 66 Respiratory Rate 14 Blood Pressure 96/53 L Pulse Oximetry 95 Intake & Output 06/23/18 06/24/18 06/24/18 18:59 06:59 18:59 Intake Total 1000 / 1000 Output Total 840 / 840 Balance 160 / 160 Intake: IV 1000 / 1000 NS Inj 1,000 ML @ 100 mls/hr IV 1000 / 1000 .CONT .Q10H RICARDO Rx#:[id number] Output: Urine 840 / 840 Other: # Voids 3 Date of Last Bowel Movement 06/22/18 Weight On Admission 199 lb 15.348 oz Assessment and Plan - Assessment (1) Acute dehydration Code(s): E86.0 - Dehydration Status: Acute (2) Generalized weakness Code(s): R53.1 - Weakness Status: Acute (3) Atrial fibrillation Code(s): I48.91 - Unspecified atrial fibrillation Status: Acute - Attending Attestation Patient seen and examined. I reviewed and agree with the evaluation and plan as presented. Continue rate control and anticoagulation. [facility] <Apurva Weeks - Last Filed: 06/24/18 13:46> (3) Atrial fibrillation Qualifiers: Atrial fibrillation type: unspecified Qualified Code(s): I48.91 - Unspecified atrial fibrillation <Carlos Fulton - Last Filed: 06/24/18 14:01> (3) Atrial fibrillation Qualifiers: Atrial fibrillation type: unspecified Qualified Code(s): I48.91 - Unspecified atrial fibrillation
--- NOTE | 2018-06-24 15:45 | P.PNIM ---
Subjective Interval history: Discussed with the patient results of MRI of the brain with results of a pontine stroke. Will consult neurology and rehab medicine and continue with Xarelto with history of atrial fibrillation. Continue with speech therapy, occupational therapy and physical therapy. Patient would benefit from inpatient rehab placement. WILL NEED PT AND OT AND SPEECH DUE TO POSITIVE CVA ON MRI HAS WOUND RIGHT KNEE- CONSULT WOUND CARE TO EVAL AND TREAT 06-24 HAS BEEN ACCEPT AT [facility] WILL DC TO [facility] TODAY CLEARED BY NEUROLOGY AND CARDIO FOR DC Physical Exam Vital signs: Vital Signs 06/23/18 20:00 06/23/18 21:00 06/24/18 08:00 Temperature 98.2 F 98.2 F Pulse Rate 75 75 72 Respiratory Rate 18 18 Blood Pressure 127/60 129/63 Pulse Oximetry 98 97 06/24/18 12:00 Temperature 98.1 F Pulse Rate 66 Respiratory Rate 14 Blood Pressure 96/53 L Pulse Oximetry 95 Intake & Output 06/23/18 06/24/18 06/24/18 18:59 06:59 18:59 Intake Total 1000 / 1000 Output Total 840 / 840 Balance 160 / 160 Intake: IV 1000 / 1000 NS Inj 1,000 ML @ 100 mls/hr IV 1000 / 1000 .CONT .Q10H RICARDO Rx#:[id number] Output: Urine 840 / 840 Other: # Voids 3 Date of Last Bowel Movement 06/22/18 Weight On Admission 90.7 kg Narrative: GENERAL: This is a well-nourished, well-developed patient, in no apparent distress. CARDIOVASCULAR: Irregular irregular rate and rhythm S1, S2 NO S3 OR S4 RESPIRATORY: Clear to auscultation. Breath sounds equal bilaterally. No wheezes , rales, or rhonchi. GASTROINTESTINAL: Abdomen soft, non-tender, nondistended. Normal active bowel sounds MUSCULOSKELETAL: Extremities without clubbing, cyanosis, or edema. NEURO: Alert & Oriented x2 to person, place. Moves all ext x4, mild right facial droop with some dysarthria and minimal expressive aphasia Results - Labs CBC & Chem 7: 06/24/18 08:35 06/24/18 08:35 Laboratory Results - last 24 hr 06/23/18 06/23/18 06/23/18 05:54 17:59 22:56 WBC RBC Hgb Hct MCV MCH MCHC RDW Plt Count MPV Neut % (Auto) Lymph % (Auto) [place] % (Auto) Eos % (Auto) Baso % (Auto) Neut # (Auto) Lymph # (Auto) [place] # (Auto) Eos # (Auto) Baso # (Auto) WBC Differential Differential Comment Sodium Potassium Chloride Carbon Dioxide Anion Gap BUN Creatinine Estimated GFR POC Glucose 248 H 272 H Random Glucose Hemoglobin A1c 16.5 H Calcium Phosphorus Magnesium Total Bilirubin AST ALT Alkaline Phosphatase Total Protein Albumin 06/24/18 06/24/18 06/24/18 05:59 08:35 08:35 WBC 3.7 L RBC 3.79 L Hgb 12.0 L Hct 35.9 L MCV 94.9 MCH 31.8 MCHC 33.5 RDW 14.0 Plt Count 111 L MPV 9.2 Neut % (Auto) 58.7 Lymph % (Auto) 26.1 [place] % (Auto) 11.5 H Eos % (Auto) 3.1 Baso % (Auto) 0.6 Neut # (Auto) 2.2 Lymph # (Auto) 1.0 [place] # (Auto) 0.4 Eos # (Auto) 0.1 Baso # (Auto) 0.0 WBC Differential . Differential Comment Auto diff final Sodium 143 Potassium 4.0 Chloride 110 H Carbon Dioxide 24.8 Anion Gap 8 BUN 12 Creatinine 0.96 Estimated GFR 77 L POC Glucose 236 H Random Glucose 149 H Hemoglobin A1c Calcium 8.0 L Phosphorus 2.7 Magnesium 1.6 Total Bilirubin 0.6 AST 35 ALT 12 Alkaline Phosphatase 75 Total Protein 5.3 L Albumin 2.3 L 06/24/18 06/24/18 08:59 12:18 WBC RBC Hgb Hct MCV MCH MCHC RDW Plt Count MPV Neut % (Auto) Lymph % (Auto) [place] % (Auto) Eos % (Auto) Baso % (Auto) Neut # (Auto) Lymph # (Auto) [place] # (Auto) Eos # (Auto) Baso # (Auto) WBC Differential Differential Comment Sodium Potassium Chloride Carbon Dioxide Anion Gap BUN Creatinine Estimated GFR POC Glucose 165 H 151 H Random Glucose Hemoglobin A1c Calcium Phosphorus Magnesium Total Bilirubin AST ALT Alkaline Phosphatase Total Protein Albumin - Imaging Impressions Head MRA 06/23/18 00:00 CONCLUSION: No intracranial vascular abnormality is identified. Neck MRA 06/23/18 00:00 CONCLUSION: 1. Mild atherosclerotic disease within the carotid bulbs bilaterally but no significant stenosis is identified. 2. Both vertebral arteries are patent. Percent stenosis is calculated using the diameter of the stenotic region over the diameter of the normal distal internal carotid artery Assessment and Plan - Assessment (1) Atrial fibrillation Code(s): I48.91 - Unspecified atrial fibrillation Status: Acute (2) Diabetes mellitus type 2 with complications, uncontrolled Code(s): E11.8 - Type 2 diabetes mellitus with unspecified complications; E11.65 - Type 2 diabetes mellitus with hyperglycemia Status: Acute - Plan Patient is a 72-year-old male presented emergency department via EMS for evaluation after falling and generalized weakness. 1. Status post fall with generalized weakness will need to rule out subacute CVA due to new history from neighbor and patient's dysarthria -We will continue with physical therapy and Occupational Therapy -Likely SNF at discharge -Found in disarray at his house with stool MRI of the brain to be ordered today along with carotid ultrasound Currently on aspirin and Xarelto Speech therapy will be consulted. POSITIVE MRI- NEUROLOGY CONSULTED WILL NEED XARELTO FOREVER 2. Atrial fibrillation with current rate control -Status post cardiology evaluation who recommended switching Lovenox to Xarelto continue on digoxin and metoprolol. -Resume home medications and start metoprolol Echocardiogram with normal ejection fraction 5560%. CONTINUE XARELTO 3. Diabetes mellitus type II, uncontrolled -sliding scale coverage and Accu-Cheks before meals and at bedtime Start Levemir 25 units subcu twice daily along with adding preprandial scheduled NovoLog 5 units subcu 3 times daily for glycemic control. Patient has poor hemoglobin A1c of greater than 11 4. Osteoarthritis -Continue on pain control -Physical therapy and occupational therapy to eval and treat 5 Possible parkinsonian-like symptoms -Continue on his Sinemet as at home 6. PTSD resume his home medications Depression/anxiety 7. Gait instability/status post fall, rule out CVA -Continue physical therapy and Occupational Therapy. Appreciate assistance. POSITIVE CVA ON MRI 8. Continue on DVT prophylaxis with Xarelto - WOUND CARE TO EVAL RIGHT KNEE DC TO [facility] TODAY Code Status: FULL CODE Discussed Condition With: RN AND PT AND CM Discharge Planning: [facility] at discharge (1) Atrial fibrillation Qualifiers: Atrial fibrillation type: unspecified Qualified Code(s): I48.91 - Unspecified atrial fibrillation (2) Diabetes mellitus type 2 with complications, uncontrolled Qualifiers: Diabetes mellitus residential insulin use: with adjunct faculty for medical terminology use Qualified Code(s) : E11.8 - Type 2 diabetes mellitus with unspecified complications; E11.65 - Type 2 diabetes mellitus with hyperglycemia; Z79.4 - longterm (current) use of insulin
--- NOTE | 2018-06-24 15:57 | P.DS ---
Date of admission: 06/19/18 15:06 Primary care physician: [facility] Attending physician on discharge: Reji Wilkes Anticipated date of discharge: 06/24/18 Brief History from admission: Patient is a 72-year-old male presented emergency department via EMS for evaluation after falling and generalized weakness. Patient was seen in the emergency department yesterday and admission was recommended but the patient decided that he was going to leave AGAINST MEDICAL ADVICE and took his walker and leaves the emergency department. At that time he was ambulatory, he was answering all questions appropriately and it was appeared to be capable of making his own decisions. Today he fell chair and was falling. Landed on the ground laid there for at least 3 hours. EMS will stated there was stool all over the ground and all over the patient and all over the house. He was unable to walk and EMS brought him in due to his severe weakness. The patient states that he wants to stay in the hospital this time. He reports "pain all over." Per EMS he denied any new injuries from the fall is moderate severity and stool all over the ground. Has generalized weakness. His past medical history is significant for atrial fibrillation, hyperlipidemia, possible Parkinson's like disorder, diabetes mellitus, osteoarthritis, BPH, and history of dizziness, also has history of obesity and PTSD. Currently not on any heavy duty anticoagulation and previously been on warfarin he states in the past and is now on multiple aspirin daily for anticoagulation Patient will be admitted. His heart rate will be brought under control. Cardiology will be consulted. Will get an echocardiogram. We will anticoagulate with Lovenox and we will continue fluids. We will ask physical therapy and occupational therapy to eval and treat. Has some degree of dehydration and renal insufficiency as well as what sounds like some degree of noncompliance since he left AGAINST MEDICAL ADVICE yesterday DS: Diagnosis - Discharge Diagnosis (1) Atrial fibrillation Status: Acute (2) Diabetes mellitus type 2 with complications, uncontrolled Status: Chronic (3) CVA (cerebral vascular accident) Status: Acute (4) Generalized weakness Status: Acute (5) Diabetes Status: Chronic (6) Noncompliance Status: Chronic (7) Obesity Status: Chronic (8) PTSD (post-traumatic stress disorder) Status: Chronic DS: Summary Hospital Course: Discussed with the patient results of MRI of the brain with results of a pontine stroke. Will consult neurology and rehab medicine and continue with Xarelto with history of atrial fibrillation. Continue with speech therapy, occupational therapy and physical therapy. Patient would benefit from inpatient rehab placement. WILL NEED PT AND OT AND SPEECH DUE TO POSITIVE CVA ON MRI HAS WOUND RIGHT KNEE- CONSULT WOUND CARE TO EVAL AND TREAT 8-21 HAS BEEN ACCEPT AT [facility] DC TO [facility] TODAY CLEARED BY NEUROLOGY AND CARDIO FOR DC Patient is a 72-year-old male presented emergency department via EMS for evaluation after falling and generalized weakness. 1. Status post fall with generalized weakness will need to rule out subacute CVA due to new history from neighbor and patient's dysarthria -We will continue with physical therapy and Occupational Therapy -Likely SNF at discharge -Found in disarray at his house with stool MRI of the brain to be ordered today along with carotid ultrasound Currently on aspirin and Xarelto Speech therapy will be consulted. POSITIVE MRI- NEUROLOGY CONSULTED WILL NEED XARELTO FOREVER 2. Atrial fibrillation with current rate control -Status post cardiology evaluation who recommended switching Lovenox to Xarelto continue on digoxin and metoprolol. -Resume home medications and start metoprolol Echocardiogram with normal ejection fraction 5560%. CONTINUE XARELTO 3. Diabetes mellitus type II, uncontrolled -sliding scale coverage and Accu-Cheks before meals and at bedtime Start Levemir 25 units subcu twice daily along with adding preprandial scheduled NovoLog 5 units subcu 3 times daily for glycemic control. Patient has poor hemoglobin A1c of greater than 11 4. Osteoarthritis -Continue on pain control -Physical therapy and occupational therapy to eval and treat 5 Possible parkinsonian-like symptoms -Continue on his Sinemet as at home 6. PTSD resume his home medications Depression/anxiety 7. Gait instability/status post fall, rule out CVA -Continue physical therapy and Occupational Therapy. Appreciate assistance. POSITIVE CVA ON MRI 8. Continue on DVT prophylaxis with Xarelto - WOUND CARE TO EVAL RIGHT KNEE DC TO [facility] TODAY - Time Spent with Patient Total time spent providing and/or coordinating discharge services: Greater than 30 minutes Exam Vital signs: Vital Signs 06/23/18 20:00 06/23/18 21:00 06/24/18 08:00 Temperature 98.2 F 98.2 F Pulse Rate 75 75 72 Respiratory Rate 18 18 Blood Pressure 127/60 129/63 Pulse Oximetry 98 97 06/24/18 12:00 Temperature 98.1 F Pulse Rate 66 Respiratory Rate 14 Blood Pressure 96/53 L Pulse Oximetry 95 Intake & Output 06/23/18 06/24/18 06/24/18 18:59 06:59 18:59 Intake Total 1000 / 1000 Output Total 840 / 840 Balance 160 / 160 Intake: IV 1000 / 1000 NS Inj 1,000 ML @ 100 mls/hr IV 1000 / 1000 .CONT .Q10H RICARDO Rx#:[id number] Output: Urine 840 / 840 Other: # Voids 3 Date of Last Bowel Movement 06/22/18 Weight On Admission 90.7 kg Narrative: GENERAL: This is a well-nourished, well-developed patient, in no apparent distress. CARDIOVASCULAR: Irregular irregular rate and rhythm S1, S2 NO S3 OR S4 RESPIRATORY: Clear to auscultation. Breath sounds equal bilaterally. No wheezes , rales, or rhonchi. GASTROINTESTINAL: Abdomen soft, non-tender, nondistended. Normal active bowel sounds MUSCULOSKELETAL: Extremities without clubbing, cyanosis, or edema. NEURO: Alert & Oriented x2 to person, place. Moves all ext x4, mild right facial droop with some dysarthria and minimal expressive aphasia Results Procedures completed during hospitalization: NONE Completed studies during hospitalization: Head MRI 06/22/18 00:00 CONCLUSION: 1. Recent left pontine infarct, as above. 2. Chronic findings include generalized cerebral atrophy and mild to moderate periventricular white matter change. Carotid Doppler Study 06/23/18 00:00 CONCLUSION: Right Internal Carotid Artery: No evidence of hemodynamically significant lesion with less than 50% stenosis. Left Internal Carotid Artery: No evidence of hemodynamically significant lesion with less than 50% stenosis. Head MRA 06/23/18 00:00 CONCLUSION: No intracranial vascular abnormality is identified. Neck MRA 06/23/18 00:00 CONCLUSION: 1. Mild atherosclerotic disease within the carotid bulbs bilaterally but no significant stenosis is identified. 2. Both vertebral arteries are patent. Percent stenosis is calculated using the diameter of the stenotic region over the diameter of the normal distal internal carotid artery Labs on day of discharge: Labs from last 24 hours 06/24/18 06/24/18 06/24/18 12:18 08:59 08:35 WBC RBC Hgb Hct MCV MCH MCHC RDW Plt Count MPV Neut % (Auto) Lymph % (Auto) Toole % (Auto) Eos % (Auto) Baso % (Auto) Neut # (Auto) Lymph # (Auto) Toole # (Auto) Eos # (Auto) Baso # (Auto) WBC Differential Differential Comment Sodium 143 Potassium 4.0 Chloride 110 H Carbon Dioxide 24.8 Anion Gap 8 BUN 12 Creatinine 0.96 Estimated GFR 77 L POC Glucose 151 H 165 H Random Glucose 149 H Hemoglobin A1c Calcium 8.0 L Phosphorus 2.7 Magnesium 1.6 Total Bilirubin 0.6 AST 35 ALT 12 Alkaline Phosphatase 75 Total Protein 5.3 L Albumin 2.3 L 06/24/18 06/24/18 06/23/18 08:35 05:59 22:56 WBC 3.7 L RBC 3.79 L Hgb 12.0 L Hct 35.9 L MCV 94.9 MCH 31.8 MCHC 33.5 RDW 14.0 Plt Count 111 L MPV 9.2 Neut % (Auto) 58.7 Lymph % (Auto) 26.1 Toole % (Auto) 11.5 H Eos % (Auto) 3.1 Baso % (Auto) 0.6 Neut # (Auto) 2.2 Lymph # (Auto) 1.0 Toole # (Auto) 0.4 Eos # (Auto) 0.1 Baso # (Auto) 0.0 WBC Differential . Differential Comment Auto diff final Sodium Potassium Chloride Carbon Dioxide Anion Gap BUN Creatinine Estimated GFR POC Glucose 236 H 272 H Random Glucose Hemoglobin A1c Calcium Phosphorus Magnesium Total Bilirubin AST ALT Alkaline Phosphatase Total Protein Albumin 06/23/18 06/23/18 17:59 05:54 WBC RBC Hgb Hct MCV MCH MCHC RDW Plt Count MPV Neut % (Auto) Lymph % (Auto) Toole % (Auto) Eos % (Auto) Baso % (Auto) Neut # (Auto) Lymph # (Auto) Toole # (Auto) Eos # (Auto) Baso # (Auto) WBC Differential Differential Comment Sodium Potassium Chloride Carbon Dioxide Anion Gap BUN Creatinine Estimated GFR POC Glucose 248 H Random Glucose Hemoglobin A1c 16.5 H Calcium Phosphorus Magnesium Total Bilirubin AST ALT Alkaline Phosphatase Total Protein Albumin - Impressions ITS Impressions Head MRI 06/22/18 00:00 CONCLUSION: 1. Recent left pontine infarct, as above. 2. Chronic findings include generalized cerebral atrophy and mild to moderate periventricular white matter change. Carotid Doppler Study 06/23/18 00:00 CONCLUSION: Right Internal Carotid Artery: No evidence of hemodynamically significant lesion with less than 50% stenosis. Left Internal Carotid Artery: No evidence of hemodynamically significant lesion with less than 50% stenosis. Head MRA 06/23/18 00:00 CONCLUSION: No intracranial vascular abnormality is identified. Neck MRA 06/23/18 00:00 CONCLUSION: 1. Mild atherosclerotic disease within the carotid bulbs bilaterally but no significant stenosis is identified. 2. Both vertebral arteries are patent. Percent stenosis is calculated using the diameter of the stenotic region over the diameter of the normal distal internal carotid artery Discharge Plan - Discharge Disposition Patient Disposition: 62 Rehab Inpatient - Discharge Condition Condition: Good - Discharge Order Discharge Orders: Discharge Order (Routine); Ordered 06/24/18 Ordered By: Reji Wilkes - Discharge Details Anticipated Discharge Date: 06/24/18 Discharge Comment: JENNIFER GONZALES - Physicians Team Primary Care Provider: [facility] Attending Provider: Reji Wilkes Other Providers: Carlos Fulton MD ; Carlos Marquis MD, PhD ; José Monet MD
--- NOTE | 2018-06-24 18:08 | P.PNWCN ---
Wound Care Nurse Consult Description: Received wound management consult for R knee wound from Doctor Wilkes Communicated with: MERCEDES Contreras and Doctor Wilkes Recommendation: 1.Please cleanse wounds to R knee and R abdomen with normal saline and pat dry. 2. Leave Versatel applied today to R knee in place for 7 days may change gauze, rolled gauze and stockinette PRN if saturated or dislodged. 3. Apply Optifoam gentle border to wound on abdomen and change dressing every 3 days and PRN if saturated or dislodged. Wound/Pressure Injury - Wound Right Knee Wound Assessment: Ongoing Wound Type: Skin Tear Is This a Chronic Wound: No Wound Bed Appearance: [place] Wound Bed Appearance: Two separate skin tears are noted to R knee that are located within 1 cm of each other. Largest skin tear measures ~2cm x ~1.5cm x ~<0.1cm. Skin tears present with 100% pink tissue Surrounding Tissue Appearance: [place] Surrounding Tissue Temperature: Cool Drainage Description: Serosanguinous Drainage Amount: Scant Drainage Odor: No Odor Dressing Status: Changed Cleansing Solution: Saline Primary Dressing: Veratel contact layer Cover Dressing: gauze pads, rolled gauze and stockinette Tape Type: Transparent Wound Dressing Change Date: 06/24/18 Wound Margin Description: open Right Abdomen Wound Assessment: Ongoing Wound Type: Abrasion Is This a Chronic Wound: No Length: 3 (~3cm) Width: 4 (~4cm) Depth: 0.1 (~0.1cm) Wound Bed Appearance: [place] Wound Bed Appearance: Wound bed presents with 100% pink tissue Surrounding Tissue Appearance: [place] (and ecchymotic) Surrounding Tissue Temperature: Warm Drainage Description: Serous Drainage Amount: Minimal Drainage Odor: No Odor Dressing Status: Changed Cleansing Solution: Saline Primary Dressing: Optifoam gentle border Wound Dressing Change Date: 06/24/18 Wound Margin Description: poorly defined and open - Additional Information Patient seen on for evaluation of wound R knee. 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 Bordered gauze dressing to R knee is dislodged. Removed dressing to reveal two skin tears to R knee. Patient also complaining of wound on R abdomen. Removed bordered gauze dressing in place to R abdomen to reveal abrasion to R abdomen. Wound description and measurements are noted above. All open wounds were cleansed with normal saline and patted dry. Applied Versatel contact layer over skin tears to R knee and covered with gauze, secured with rolled gauze, tape and stockinette. Wound to R abdomen was covered with Optifoam 6x6 gentle border. Dressings were initialed and dated.
== END 2018-06-24 17:42 ==
LOC: NEPC 12:33 → NEDA 15:06 → NEDH 20:09 → N05 06-20 17:28
PROVIDERS: ADMIT Hospitalist; ATTEND Hospitalist

== ENCOUNTER 2018-06-25 19:41 | Inpatient (IN) ==
--- NOTE | 2018-06-25 20:33 | MB ---
cc: Lazaro Patten MD DATE: 06/25/2018 HISTORY OF PRESENT ILLNESS: The patient is a 72-year-old man with atrial fibrillation, atrial flutter who had a left pontine infarct, has been on Xarelto up in rehabilitation. Also, other medications: 1. Aspirin 325 a day. 2. Lipitor. 3. Sinemet 25/100 twice a day. 4. Cipro. 5. Digoxin. 6. Vasotec. 7. Antivert. 8. Oxycodone for which he got some at 1800 today. 9. Xarelto 20 a day. He got that today. PAST MEDICAL HISTORY: Diabetes, atherosclerosis, atrial fibrillation, dysthymic disorder, eczema, obesity, PTSD, vitamin D deficiency. He was seen by Dr. Marquis 2 days ago on 06/23/2018. He had a known history of atrial fibrillation, came to the hospital, was weak all over, falling down. One episode of bowel incontinence. He left AMA and then returned after he fell. An MRI showed an acute left pontine infarct. He was on Xarelto at that time and aspirin. Speech was somewhat dysarthric. He has 4/5 strength of both upper and lower extremities. Poor effort. Subsequently went to rehabilitation and then [facility] a stroke alert was called after he was somewhat somnolent, some slurred speech, dysarthric speech. CT scan of the brain negative. Seems to have rebounded after he got some oxygen on here and CT. His workup included a negative carotid ultrasound. He had an MRA of the neck that was read as negative. He had an MRI of the brain that showed a left pontine infarct, acute and MRA of the head that was negative. PHYSICAL EXAMINATION: VITAL SIGNS: 160s, atrial flutter, heart rate of 80. NECK: No carotid bruits. HEART: Regular rate and rhythm. I did not detect a murmur. NEUROLOGIC: Pupils are equal. Visual stephenson are full. Extraocular movements intact without nystagmus. Face was symmetric. Tongue was midline. Sometimes he answers questions better than others and follows commands better than others. He appears to have normal strength in upper and lower extremities bilaterally. He can wiggle his fingers well, show me his right and left thumb. Toes are downgoing bilaterally. DTRs are trace. He seems to feel discomfort throughout. He can follow commands. He can say hello and goodbye. He knows the year, could not give me the month. LABORATORY DATA: CT of the head was negative. CTA is pending. CBC normal. UA negative. Basic metabolic profile normal. LFTs normal. He had a negative troponin here. Albumin 2.7, LDL 123. TSH normal. He had a blood gas done on 06/18/2018 that showed a PaO2 of 20. Unclear if it was a real gas or not, 7.3748 was his PaCO2 and O2 of 20 on room air. His echocardiogram showed normal ejection fraction and valves looked okay. IMPRESSION: Probably not another stroke. We will check an MRI of the brain and see what the CTA show. He seems to have bounced back. We will recheck a blood gas on him and continue on the Xarelto. Cardiology saw him, noted a history of hyperlipidemia, diabetes, osteoarthritis, PTSD, obesity. He was not on Xarelto at home it appears and he was started on Xarelto here in the hospital on or around 06/19/2018. No CT scan of the brain was performed on that day when he was in the ER for comparison although current CT shows evolving left pontine infarct. IMPRESSION: I think probably more of a metabolic. We will see what the CTA and repeat MRI shows. He could be transferred down to a tele bed. I think he has bounced back well. We are going to check a blood gas on him now. MD SUNSHINE Mancuso/ct , 07:21 PM , 07:29 PM
--- NOTE | 2018-06-25 21:27 | P.HPIM ---
History of Present Illness Service: [facility] Primary Care Physician: UNKNOWN Chief Complaint: Altered Mental Status History of Present Illness: Mr. Acosta is a 72-year-old male with a past medical history of arteriosclerosis, hyperlipidemia, BPH, atrial fibrillation-not on long-term anticoagulation, diabetes requiring insulin, dysthymic disorder, eczema, hypo- magnesium, noncompliance, obesity, PTSD, and vitamin D deficiency who was at [facility] for inpatient rehab following left pontine infarct (on Xarelto in rehab). While at [facility] on 06/25/18, he developed altered mental status ( somnolent with slurred, dysarthric speech) and was transferred to [facility] under a stroke alert. Stat CT of brain showed no acute changes and stable left pontine infarction. The patient has been seen by Dr. Patten who is recommending brain MRI and head/neck CTAs. The patient is seen in his hospital room, he is oriented to his name but unable to tell me his birthday, year, location, or provide any medical history. He is unable to tell me where he is or why. Therefore, medical information is obtained from EMR. Inpatient Certification: I certify that the inpatient services were ordered in accordance with Medicare regulations governing the order. This includes certification that hospital inpatient services are reasonable and necessary and in the case of services not specified as inpatient-only under 42 CFR 419.22(n), that they are appropriately provided as inpatient services in accordance to with the 2-midnight benchmark under 43 CFR 412.3(e) Estimated Total Length of Stay (Days): 3 Plans for Post Hospital Care: Not yet determined Review of Systems unobtainable due to mental condition PMFSH - History History Provided By: Patient - Medical History Medical History: Medical History (Last Reviewed 06/26/18 @ 04:01 by EMILY Scott) Arterioloscleroses Atrial fibrillation Diabetes Dysthymic disorder Eczema Hyperlipidemia Hypomagnesemia Noncompliance Obesity (BMI 30.0-34.9) PTSD (post-traumatic stress disorder) Vitamin D deficiency - Surgical History Surgical History: Surgical History (Last Reviewed 06/26/18 @ 04:01 by EMILY Scott) History of tonsillectomy - Family History Family History: Family History (Last Reviewed 06/26/18 @ 04:01 by EMILY Scott) Mother Cancer Father Unknown family medical history - Tobacco History Second Hand Smoke Exposure: Yes (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 He quit 25 years ago.) Tobacco Type: Cigarettes Packs Per Day: 4 Years Smoked: 30 Number of Pack Years (if former smoker): 120 Smoking End Date: 25 years ago - Alcohol History How Often Do You Have a Drink Containing Alcohol: Never (Patient was a records management associate he quit drinking 25 years ago.) - Substance Use History Substance History: No History of Abuse - Travel History History of Recent Travel: No Medications and Allergies Active Medications: Active Medications Sodium Chloride (Ns Flush) 2 ml IV.FLUSH BID RICARDO Sodium Chloride (Ns Flush) 2 ml IV.FLUSH PRN PRN PRN Reason: FLUSH AFTER USING IV ACCESS Allergies Allergy/AdvReac Type Severity Reaction Status Date / Time No Known Allergies Allergy Verified 06/19/18 12:47 Home Medications Medication Instructions Recorded Confirmed Type aspirin 325 mg PO DAILY 06/18/18 06/26/18 History atorvastatin [Lipitor] 40 mg PO HS 06/18/18 06/26/18 History carbidopa-levodopa [Sinemet] 2 tab PO BID 06/18/18 06/26/18 History cholecalciferol (vitamin D3) 2,000 unit PO DAILY 06/18/18 06/26/18 History [Vitamin D3] digoxin [Lanoxin] 0.125 mg PO DAILY 06/18/18 06/26/18 History enalapril maleate [Vasotec] 20 mg PO BID 06/18/18 06/26/18 History magnesium oxide 800 mg PO DAILY NEB 06/18/18 06/26/18 History meclizine 50 mg PO HS 06/18/18 06/26/18 History multivitamin with minerals 1 tab PO DAILY 06/18/18 06/26/18 History omega 9-sqe-twt-fish oil [Fish Oil] 2,000 mg PO BID 06/18/18 06/26/18 History tamsulosin 0.4 mg PO DAILY 06/18/18 06/26/18 History Exam - Constitutional obese, agitated - Routine HEENT Exam Head: Present: normocephalic. Absent: atraumatic - Routine Neck Exam Absent: JVD, carotid bruit - Routine Respiratory Exam Present: CTA bilaterally. Absent: respiratory distress, wheezes, crackles - Routine Cardiovascular Exam Present: irregularly irregular - Routine Abdominal Exam Present: soft, normoactive bowel sounds. Absent: tenderness - Routine Extremities Exam Present: edema (trace pitting bilateral LE edema), pulses intact - Routine Skin Exam Present: intact, warm - Routine Neurological Exam Present: alert. Absent: oriented X3 equal strength noted, no facial droop, follows commands inconsistently Results - Labs CBC & Chem 7: 06/25/18 22:08 06/25/18 22:08 Caprini VTE Risk Assessment Caprini VTE Risk Assessment: Moderate/High Risk (score >= 2) Caprini Risk Assessment Model: Point Value = 1 Point Value = 2 Point Value = 3 Point Value = 5 Age 41-60 Minor surgery BMI > 25 kg/m2 Swollen legs Varicose veins or History of unexplained or recurrent spontaneous Oral contraceptives or hormone replacement Sepsis (< 1 month) Serious lung disease, including pneumonia (< 1 month) Abnormal pulmonary function Acute myocardial infarction Congestive heart failure (< 1 month) History of inflammatory bowel disease Medical patient at bed rest Age 61-74 Arthroscopic surgery Major open surgery (> 45 min) Laparoscopic surgery (> 45 min) Malignancy Confined to bed (> 72 hours) Immobilizing plaster cast Central venous access Age >= 75 History of VTE Family history of VTE Factor V Leiden Prothrombin [id number] Lupus anticoagulant Anticardiolipin antibodies Elevated serum homocysteine Heparin-induced thrombocytopenia Other congenital or acquired thrombophilia Stroke (< 1 month) Elective arthroplasty Hip, pelvis, or leg fracture Acute spinal cord injury (< 1 month) Prophylaxis Regimen: Total Risk Factor Score Risk Level Prophylaxis Regimen 0-1 Low Early ambulation 2 Moderate Order ONE of the following: *Sequential Compression Device (SCD) *Heparin 5000 units SQ BID 3-4 Higher Order ONE of the following medications: *Heparin 5000 units SQ TID *Enoxaparin/Lovenox 40 mg SQ daily (WT < 150 kg, CrCl > 30 mL/min) *Enoxaparin/Lovenox 30 mg SQ daily (WT < 150 kg, CrCl > 10-29 mL/min) *Enoxaparin/Lovenox 30 mg SQ BID (WT < 150 kg, CrCl > 30 mL/min) AND/OR *Sequential Compression Device (SCD) 5 or more Highest Order ONE of the following medications: *Heparin 5000 units SQ TID (Preferred with Epidurals) *Enoxaparin/Lovenox 40 mg SQ daily (WT < 150 kg, CrCl > 30 mL/min) *Enoxaparin/Lovenox 30 mg SQ daily (WT < 150 kg, CrCl > 10-29 mL/min) *Enoxaparin/Lovenox 30 mg SQ BID (WT < 150 kg, CrCl > 30 mL/min) AND *Sequential Compression Device (SCD) Assessment and Plan - Plan Mr. Acosta is a 72-year-old male with a past medical history of arteriosclerosis, hyperlipidemia, BPH, atrial fibrillation-not on long-term anticoagulation, diabetes requiring insulin, dysthymic disorder, eczema, hypo- magnesium, noncompliance, obesity, PTSD, and vitamin D deficiency who was at [facility] for inpatient rehab following left pontine infarct (on Xarelto in rehab). While at [facility] on 06/25/18, he developed altered mental status ( somnolent with slurred, dysarthric speech) and was transferred to [facility] under a stroke alert. Stat CT of brain showed no acute changes and stable left pontine infarction. The patient has been seen by Dr. Patten who is recommending brain MRI and head/neck CTAs. Altered mental status - patient s/p stroke alert at [facility] - neurology consulted - Dr. Patten's input is appreciated - awaiting results of MRI and CT head/neck - nursing bedside swallow evaluation, NPO for now, ST consulted - frequent monitoring of vital signs and neuro checks - continuous cardiac telemetry - consult ST, PT, OT - HOB flat for 12 hours 2. Atrial fibrillation with current rate control - Status post cardiology evaluation during initial hospitalization for left pontine infarction- on Xarelto; continue on digoxin and metoprolol - Echocardiogram with normal ejection fraction 5560% - continuous cardiac telemetry Diabetes mellitus type II, uncontrolled - Patient had hemoglobin A1c 17 on 06/19/18 - low dose Novolog sliding scale coverage with Accu-Cheks before meals and at bedtime - monitor trends in blood glucose and adjust treatment as needed - PRN hypoglycemia treatment protocol - Hold scheduled Levemir 25 units subcu twice daily along with adding preprandial scheduled NovoLog 5 units subcu 3 times daily while NPO and altered Possible parkinsonian-like symptoms - Continue on home Sinemet DVT prophylaxis - resume Xarelto Discussed Condition With: Dr. Aceves, RN, and [facility])
[2018-06-25] MEDS ORDERED: Dextrose 50% in Water 50 ML Vial IV.PUSH PRN (22:45)
[2018-06-25 22:48] LABS: Baso % (Auto) 0.3 % (0.0-2.0); Eos % (Auto) 0.2 % (0.0-4.0); Hematocrit 36.9 % (39.0-51.0); Hemoglobin 12.5 gm/dL (13.0-17.0); Lymph # (Auto) 0.3 th/mm3 (1.0-4.8); Lymph % (Auto) 4.8 % (9.0-44.0); Mean Corpuscular HGB Conc 33.9 % (32.0-36.0); Mean Corpuscular Hemoglobin 31.7 pg (27.0-34.0); Mean Corpuscular Volume 93.4 fL (80.0-100.0); Mean Platelet Volume 8.7 fL (7.0-11.0); Mono # (Auto) 0.7 th/mm3 (0.0-0.9); Mono % (Auto) 10.1 % (0.0-8.0); Neut % (Auto) 84.6 % (16.0-70.0); Platelet Count 117 th/mm3 (150-450); Red Blood Count 3.96 mil/mm3 (4.50-5.90); Red Cell Distribution Width 13.9 % (11.6-17.2)
[2018-06-25 22:54] LABS: Bacteria,Urine Rare /hpf; Bilirubin,Urine Negative (Negative); Clarity,Urine Hazy (Clear); Color,Urine Yellow (Yellw/Straw); Glucose,Urine (UA) 500 or Greater mg/dL (Negative); Leukocyte Esterase,Urine Negative (Negative); Mucus,Urine Few /lpf (Occasional); Nitrite,Urine Negative (Negative); Specific Gravity,Urine 1.015 (1.002-1.035)
[2018-06-25 23:36] LABS: Calcium 8.8 mg/dL (8.5-10.1); Carbon Dioxide 27.9 meq/L (21.0-32.0); Potassium 4.2 meq/L (3.5-5.1); Troponin I 0.03 ng/mL (0.02-0.05)
[2018-06-26 00:12] LABS: INR 1.1 Ratio; Prothrombin Time 11.4 sec (9.8-11.6)
[2018-06-26] MEDS: Insulin NovoLOG Aspart Correctional Sugar Inj SQ SCH ×5 (03:37→22:38)
--- NOTE | 2018-06-26 04:38 | CT ---
EXAM DATE: 06/26/2018 3:59 AM EDT AGE/SEX: 72 years / Male INDICATIONS: Right side weakness. CLINICAL DATA: This is the patient's initial encounter. Patient reports that signs and symptoms have been present for 1 day and indicates a pain score of Nonresponsive. MEDICAL/SURGICAL HISTORY: Non-responsive. Non-responsive. RADIATION DOSE: 28.56 CTDI (mGy) ; Combined studies COMPARISON: [facility], CT HEAD W/O CONTRAST, 06/25/2018. . TECHNIQUE: Volumetric scanning was performed using a multi-row detector CT scanner during bolus infu matthew of 75 ml Visipaque 320 (iodixanol) nonionic water-soluble contrast as a cumulative dose for mul tiple exams. The data was post processed with a variety of visualization algorithms including full volume maximum intensity projection, multi-planar sliding thin slab reformation, curved planar reform ation, and surface rendering techniques. Using automated exposure control and adjustment of the mA a nd/or kV according to patient size, radiation dose was kept as low as reasonably achievable to obtain optimal diagnostic quality images. DICOM format image data is available electronically for review a nd comparison. FINDINGS: There is excellent visualization of the major intracranial arteries out to the second-order branch ve ssels. There is no evidence for aneurysm, vessel truncation or stenosis, and no evidence for vascula r malformation. CONCLUSION: 1. Negative CTA Head. Electronically signed by: Chris Spaulding MD 06/26/2018 4:36 AM EDT
--- NOTE | 2018-06-26 04:45 | CT ---
EXAM DATE: 06/26/2018 3:58 AM EDT AGE/SEX: 72 years / Male INDICATIONS: Right side weakness. CLINICAL DATA: This is the patient's initial encounter. Patient reports that signs and symptoms have been present for 1 day and indicates a pain score of Nonresponsive. MEDICAL/SURGICAL HISTORY: Non-responsive. Non-responsive. RADIATION DOSE: 28.56 CTDI (mGy) ; Combined studies COMPARISON: No prior exams available for comparison. TECHNIQUE: Volumetric scanning was performed using a multirow detector CT scanner during bolus infus ion of 75 ml Visipaque 320 (iodixanol) nonionic water-soluble contrast as a cumulative dose for mult iple exams. The data was postprocessed with a variety of visualization algorithms including full-vo lume maximum intensity projection, multiplanar sliding thin-slab reformation, curved-planar reformati on, and surface-rendering techniques. Using automated exposure control and adjustment of the mA and/ or kV according to patient size, radiation dose was kept as low as reasonably achievable to obtain op timal diagnostic quality images. DICOM format image data is available electronically for review and comparison. FINDINGS: Aortic Arch: There is a three-vessel origin of the great vessels from the aorta. No evidence of ost ial narrowing Right Carotid: Calcified atherosclerotic plaque involving the carotid bulb extending into the proxim al ICA. Utilizing NASCET criteria the area of maximal stenosis is 50% occurring approximately 1 cm ce phalad to the carotid bifurcation. The CCA and ECA are patent. The more cephalad portion of the extra cranial ICA is tortuous particularly at the skull base but is patent.. Left Carotid: Calcified atherosclerotic plaque involving the carotid bulb extending into the proxima l ICA. Utilizing NASCET criteria the area of maximal stenosis is 50% occurring approximately 1 cm cep halad to the carotid bifurcation. The CCA and ECA are patent. The more cephalad portion of the extrac ranial ICA is tortuous particularly at the skull base but is patent... Vertebrals: The vertebral arteries have a symmetric diameter. No stenotic lesions are seen. A degenerative cervical spine. Percent stenosis is calculated using the diameter of the stenotic region over the diameter of the nor mal distal internal carotid artery. CONCLUSION: 1. Calcified atherosclerotic plaque generating bilateral 50% ICA stenoses. 2. Patent vertebral arteries bilaterally. Electronically signed by: Chris Spaulding MD 06/26/2018 4:44 AM EDT
--- NOTE | 2018-06-26 06:21 | XR ---
EXAM DATE: 06/26/2018 5:46 AM EDT AGE/SEX: 72 years / Male INDICATIONS: Fever starting today CLINICAL DATA: This is the patient's initial encounter. Patient reports that signs and symptoms have been present for 1 day and indicates a pain score of 0/10. MEDICAL/SURGICAL HISTORY: Diabetes. Afib. None. COMPARISON: [facility] [place] 1V SINGLE AP, 06/18/2018. . FINDINGS: A single AP view of the chest demonstrates the lungs to be symmetrically aerated without evidence of mass, infiltrate or effusion. The cardiomediastinal contours are unremarkable. Osseous structures a re intact. CONCLUSION: Negative examination. Electronically signed by: Chris Spaulding MD 06/26/2018 6:20 AM EDT
--- NOTE | 2018-06-26 08:55 | MR ---
EXAM DATE: 06/26/2018 8:46 AM EDT AGE/SEX: 72 years / Male INDICATIONS: Altered mental status. Stroke alert yesterday. CLINICAL DATA: This is the patient's subsequent encounter. Patient reports that signs and symptoms h ave been present for 2 days and indicates a pain score of 0/10. MEDICAL/SURGICAL HISTORY: Diabetes. Hypertension. Tonsillectomy. COMPARISON: [facility] [place], CTA HEAD W CONTRAST W 3D, 06/26/2018. . TECHNIQUE: Multiplanar, multisequence examination of the brain was performed without contrast. FINDINGS: There is focally restricted diffusion in the medial central aspect of the left florentin. There is associa tejas T2 prolongation in this region in addition to mild periventricular T2 prolongation in patchy area s of punctate T2 prolongation elsewhere in the deep white matter structures which appear chronic and benign. Mild symmetric cortical atrophy. No evidence of intracranial mass or hemorrhage. Cranial stru ctures are benign in intact. CONCLUSION: Subacute pontine stroke on the left. Electronically signed by: Simon Horton MD 06/26/2018 8:54 AM EDT
[2018-06-26] MEDS: Acetaminophen 325 MG Tablet PO PRN (09:05)
[2018-06-26] MEDS: Lactobacillus Acidophilus/L. Spores Tablet PO SCH (09:06)
[2018-06-26] MEDS: Metoprolol Tartrate 25 MG Tablet PO SCH ×2 (09:06→22:39)
[2018-06-26] MEDS: Ciprofloxacin 500 MG Tablet PO SCH ×2 (09:06→22:39)
[2018-06-26] MEDS: Digoxin 125 MCG Tablet PO SCH (09:06)
[2018-06-26] MEDS: Aspirin 325 MG Tablet PO SCH (09:06)
[2018-06-26] MEDS: Rivaroxaban 20 MG Tablet PO SCH (09:12)
--- NOTE | 2018-06-26 09:48 | P.PN ---
Subjective Interval history: Follow-up visit for altered mental status, stroke alert, A. fib and diabetes mellitus. Nurse reports this morning patient having low-grade temperatures, patient has also been incontinent of urine and pulling of condom catheter. Patient is seen and examined resting in bed comfortably, appears to be in no acute distress. He is awake, alert, oriented to self, place, and time. Patient reports pain "all over", unable to specify. He denies any headache, dizziness, shortness of breath, cough, chest pain, nausea, vomiting or abdominal pain. Physical Exam Vital signs: Vital Signs 06/25/18 20:09 06/26/18 00:00 06/26/18 04:55 Temperature 99.3 F 98.9 F 100.2 F H Pulse Rate 96 H 94 H Respiratory Rate 17 17 17 Blood Pressure 134/79 136/76 189/82 H Pulse Oximetry 98 96 100 06/26/18 07:27 Temperature 100.8 F H Pulse Rate 98 H Respiratory Rate 20 Blood Pressure 171/86 H Pulse Oximetry 100 Intake & Output 06/25/18 06/26/18 06/26/18 18:59 06:59 18:59 Weight 108.409 kg Other: Weight On Admission 239 kg Narrative: GENERAL: Well-developed, obese male resting in bed, appears to be in no acute distress. SKIN: Warm and dry. Right AC with dry eschar, surrounding erythema, minimal warmth, no edema or drainage noted from site. No arm or hand edema noted. HEAD: Atraumatic. Normocephalic. EYES: Pupils equal and round. No scleral icterus. No injection or drainage. ENT: No nasal bleeding or discharge. Mucous membranes pink and moist. NECK: Trachea midline. No JVD. CARDIOVASCULAR: Regular rate and rhythm. RESPIRATORY: Anterior breath sounds clear, posterior lung sounds diminished but clear. GASTROINTESTINAL: Abdomen soft, non-tender, nondistended. + Bowel sounds. MUSCULOSKELETAL: Extremities without clubbing, cyanosis, or edema. No obvious deformities. NEUROLOGICAL: Awake and alert. No obvious cranial nerve deficits. Motor grossly within normal limits. 4/5 muscle strength in the arms and legs. Normal speech. PSYCHIATRIC: Flat affect. Results - Labs CBC & Chem 7: 06/26/18 13:21 06/26/18 13:21 Laboratory Results - last 24 hr 06/25/18 06/25/18 06/25/18 21:26 22:08 22:08 WBC 7.0 RBC 3.96 L Hgb 12.5 L Hct 36.9 L MCV 93.4 MCH 31.7 MCHC 33.9 RDW 13.9 Plt Count 117 L MPV 8.7 Neut % (Auto) 84.6 H Lymph % (Auto) 4.8 L Winston % (Auto) 10.1 H Eos % (Auto) 0.2 Baso % (Auto) 0.3 Neut # (Auto) 6.0 Lymph # (Auto) 0.3 L Winston # (Auto) 0.7 Eos # (Auto) 0.0 Baso # (Auto) 0.0 WBC Differential . Differential Comment Auto diff final PT INR APTT Fibrinogen Sodium 138 Potassium 4.2 Chloride 103 Carbon Dioxide 27.9 Anion Gap 7 BUN 14 Creatinine 0.92 Estimated GFR 80 L POC Glucose 260 H Random Glucose 262 H Calcium 8.8 Total Creatine Kinase 76 Troponin I 0.03 Urine Color Urine Clarity Urine pH Ur Specific Rand Urine Protein Urine Glucose (UA) Urine Ketones Urine Occult Blood Urine Nitrate Urine Bilirubin Urine Urobilinogen Ur Leukocyte Esterase Urine RBC Urine WBC Urine Bacteria Urine Mucus Micro UA Comment Ur Microscopic Review Urine Culture Comments Blood Type Blood Type Recheck Antibody Screen 06/25/18 06/25/18 06/25/18 22:08 23:13 23:13 WBC RBC Hgb Hct MCV MCH MCHC RDW Plt Count MPV Neut % (Auto) Lymph % (Auto) Winston % (Auto) Eos % (Auto) Baso % (Auto) Neut # (Auto) Lymph # (Auto) Winston # (Auto) Eos # (Auto) Baso # (Auto) WBC Differential Differential Comment PT 11.4 INR 1.1 APTT 24.0 L Fibrinogen 492 H Sodium Potassium Chloride Carbon Dioxide Anion Gap BUN Creatinine Estimated GFR POC Glucose Random Glucose Calcium Total Creatine Kinase Troponin I Urine Color Yellow Urine Clarity Hazy H Urine pH 5.0 Ur Specific Rand 1.015 Urine Protein 100 H Urine Glucose (UA) 500 or greater Urine Ketones 20 Urine Occult Blood Small H Urine Nitrate Negative Urine Bilirubin Negative Urine Urobilinogen Less than 2 Ur Leukocyte Esterase Negative Urine RBC 2 Urine WBC 5 Urine Bacteria Rare H Urine Mucus Few H Micro UA Comment Culture not ind Ur Microscopic Review Not Reportable Urine Culture Comments Culture not ind Blood Type A Positive Blood Type Recheck Required Antibody Screen Negative 06/26/18 06/26/18 03:25 07:27 WBC RBC Hgb Hct MCV MCH MCHC RDW Plt Count MPV Neut % (Auto) Lymph % (Auto) Winston % (Auto) Eos % (Auto) Baso % (Auto) Neut # (Auto) Lymph # (Auto) Winston # (Auto) Eos # (Auto) Baso # (Auto) WBC Differential Differential Comment PT INR APTT Fibrinogen Sodium Potassium Chloride Carbon Dioxide Anion Gap BUN Creatinine Estimated GFR POC Glucose 267 H 281 H Random Glucose Calcium Total Creatine Kinase Troponin I Urine Color Urine Clarity Urine pH Ur Specific Rand Urine Protein Urine Glucose (UA) Urine Ketones Urine Occult Blood Urine Nitrate Urine Bilirubin Urine Urobilinogen Ur Leukocyte Esterase Urine RBC Urine WBC Urine Bacteria Urine Mucus Micro UA Comment Ur Microscopic Review Urine Culture Comments Blood Type Blood Type Recheck Antibody Screen - Imaging Impressions Head CTA 06/26/18 00:00 CONCLUSION: 1. Negative CTA Head. Head MRI 06/26/18 00:00 CONCLUSION: Subacute pontine stroke on the left. Neck CTA 06/26/18 00:00 CONCLUSION: 1. Calcified atherosclerotic plaque generating bilateral 50% ICA stenoses. 2. Patent vertebral arteries bilaterally. Chest X-Ray 06/26/18 05:19 CONCLUSION: Negative examination. Assessment and Plan - Plan Mr. Acosta is a 72-year-old male with a past medical history of arteriosclerosis, hyperlipidemia, BPH, atrial fibrillation-not on long-term anticoagulation, diabetes requiring insulin, dysthymic disorder, eczema, hypo- magnesium, noncompliance, obesity, PTSD, and vitamin D deficiency who was at [facility] for inpatient rehab following left pontine infarct (on Xarelto in rehab). While at [facility] on 06/25/18, he developed altered mental status ( somnolent with slurred, dysarthric speech) and was transferred to [facility] under a stroke alert. Stat CT of brain showed no acute changes and stable left pontine infarction. The patient has been seen by Dr. Patten who is recommending brain MRI and head/neck CTAs. Altered mental status Left pontine stroke - patient s/p stroke alert at [facility] 06/25 - neurology consulted - Dr. Patten's input is appreciated - 06/26 CTA negative, 06/26 head MRI sub acute pontine stroke on the left, 06/26 Neck CTA calcified arthrosclerotic plaque generating bilateral 50% ICA stenosis. Patent vertebral arteries bilaterally. - nursing bedside swallow evaluation, NPO for now, ST consulted - frequent monitoring of vital signs and neuro checks - continuous cardiac telemetry - consult ST, PT, OT - HOB flat for 12 hours Atrial fibrillation with current rate control - Status post cardiology evaluation during initial hospitalization for left pontine infarction- on Xarelto; continue on digoxin and metoprolol - Echocardiogram with normal ejection fraction 5560% - continuous cardiac telemetry Diabetes mellitus type II, uncontrolled - Patient had hemoglobin A1c 17 on 06/19/18 - low dose Novolog sliding scale coverage with Accu-Cheks before meals and at bedtime - monitor trends in blood glucose and adjust treatment as needed - PRN hypoglycemia treatment protocol -Sugars elevated, patient tolerating diet, restart Levemir at 10 units twice daily Right antecubital cellulitis -Continue p.o. Cipro and Bactroban -Continue monitoring for worsening symptoms -Possibly source of low grade tem. recent UA negative, recheck due to incontinence. - Chest x-ray negative Possible parkinsonian-like symptoms - Continue on home Sinemet DVT prophylaxis - resume Xarelto Discussed Condition With: Discussed with patient and RN
[2018-06-26 14:39] LABS: Baso % (Auto) 0.4 % (0.0-2.0); Eos % (Auto) 0.2 % (0.0-4.0); Hematocrit 40.2 % (39.0-51.0); Hemoglobin 13.2 gm/dL (13.0-17.0); Lymph # (Auto) 0.3 th/mm3 (1.0-4.8); Mean Corpuscular HGB Conc 32.9 % (32.0-36.0); Mean Corpuscular Hemoglobin 31.8 pg (27.0-34.0); Mean Corpuscular Volume 96.4 fL (80.0-100.0); Mean Platelet Volume 8.7 fL (7.0-11.0); Mono # (Auto) 0.4 th/mm3 (0.0-0.9); Mono % (Auto) 8.3 % (0.0-8.0); Neut # (Auto) 3.8 th/mm3 (1.8-7.7); Neut % (Auto) 84.1 % (16.0-70.0); Platelet Count 116 th/mm3 (150-450); Red Blood Count 4.17 mil/mm3 (4.50-5.90); White Blood Count 4.5 th/mm3 (4.0-11.0)
[2018-06-26 14:51] LABS: Thyroid Stimulating Hormone 0.79 uIU/mL (0.358-3.740); Troponin I 0.04 ng/mL (0.02-0.05)
[2018-06-26 14:54] LABS: Calcium 8.7 mg/dL (8.5-10.1); Carbon Dioxide 29.8 meq/L (21.0-32.0); Potassium 4.1 meq/L (3.5-5.1)
[2018-06-26 21:30] LABS: Chol/HDL Ratio 4.38 Ratio; HDL Cholesterol 34.7 mg/dL (40.0-60.0); Troponin I 0.03 ng/mL (0.02-0.05)
[2018-06-26] MEDS: Insulin Detemir Inj 1,000 UNIT/10 ML Vial SQ SCH (22:37)
[2018-06-27] MEDS: Insulin NovoLOG Aspart Correctional Sugar Inj SQ SCH ×5 (03:00→21:00)
[2018-06-27] MEDS: Insulin Detemir Inj 1,000 UNIT/10 ML Vial SQ SCH ×2 (08:17→20:59)
[2018-06-27] MEDS: Ciprofloxacin 500 MG Tablet PO SCH ×2 (08:18→20:59)
[2018-06-27] MEDS: Metoprolol Tartrate 25 MG Tablet PO SCH ×2 (08:18→21:00)
[2018-06-27] MEDS: Aspirin 325 MG Tablet PO SCH (08:18)
[2018-06-27] MEDS: Lactobacillus Acidophilus/L. Spores Tablet PO SCH (08:18)
[2018-06-27] MEDS: Digoxin 125 MCG Tablet PO SCH ×2 (08:18→09:31)
[2018-06-27] MEDS: Rivaroxaban 20 MG Tablet PO SCH (08:19)
[2018-06-27] MEDS ORDERED: Bisacodyl 10 MG Supp RECTAL PRN (08:49)
--- NOTE | 2018-06-27 08:49 | P.PN ---
Subjective Interval history: Follow-up visit for altered mental status, possible stroke, A. fib and diabetes mellitus. Patient is seen and examined resting in bed comfortably, appears to be in no acute distress. Spoke with nurse reports patient with improved in mental status, alert and oriented 3, notes there is no recent digoxin level drawn. Patient is awake, alert, and oriented, he reports he had a good night and voices no acute concerns or complaints. Denies any nausea, vomiting, diarrhea, cough, shortness of breath or chest pain. Reports he is voiding without dysuria, last BM several days ago. Return to bedside around 1:50pm this afternoon. Patient's BP was noted to be low around noon, recheck BP while patient is sitting up in chair at bedside continues to be low. Patient helped back to bed with nursing staff. He reports no dizziness or lightheadedness. Patient and family at bedside reports patient had a coughing spell earlier. He reports some chest "pressure" also endorses shortness of breath. Check stat labs, blood cultures, chest x-ray, EKG , troponins. 1 L of NS bolus, BP improved when patient placed back in bed, denies any dizziness, lightheadedness. Physical Exam Vital signs: Vital Signs 06/26/18 12:00 06/26/18 16:00 06/26/18 20:00 Temperature 97.9 F 100.5 F H 99.7 F H Pulse Rate 73 80 98 H Respiratory Rate 20 18 18 Blood Pressure 121/59 L 155/67 H 165/74 H Pulse Oximetry 99 99 98 06/27/18 00:00 06/27/18 04:00 06/27/18 08:00 Temperature 98.3 F 98.7 F 97.9 F Pulse Rate 77 71 87 Respiratory Rate 18 18 15 Blood Pressure 105/57 L 109/58 L 127/58 L Pulse Oximetry 97 100 99 Intake & Output 06/26/18 06/27/18 06/27/18 18:59 06:59 18:59 Intake Total 720 / 720 60 / 60 Balance 720 / 720 60 / 60 Weight 108.4 kg Intake: Oral 720 / 720 60 / 60 Other: # Voids 3 3 Date of Last Bowel Movement 06/25/18 # Bowel Movements 0 Narrative: GENERAL: Well-developed, obese male resting in bed, appears to be in no acute distress. SKIN: Warm and dry. Right AC with dry eschar, surrounding erythema, improved compared to 06/26, no warmth or edema noted. HEAD: Atraumatic. Normocephalic. EYES: Pupils equal and round. No scleral icterus. No injection or drainage. ENT: No nasal bleeding or discharge. Mucous membranes pink and moist. NECK: Trachea midline. No JVD. CARDIOVASCULAR: Regular rate and rhythm. RESPIRATORY: Anterior breath sounds clear, posterior lung sounds diminished but clear. GASTROINTESTINAL: Abdomen soft, non-tender, nondistended. + Bowel sounds. MUSCULOSKELETAL: Extremities without clubbing, cyanosis, or edema. No obvious deformities. NEUROLOGICAL: Awake and alert, oriented 3. No obvious cranial nerve deficits. Motor grossly within normal limits. 4/5 muscle strength in the arms and legs. Normal speech. PSYCHIATRIC: More talkative and interactive today. Results - Labs CBC & Chem 7: 06/27/18 09:41 06/27/18 15:12 Laboratory Results - last 24 hr 06/26/18 06/26/18 06/26/18 11:05 13:21 13:21 WBC 4.5 RBC 4.17 L Hgb 13.2 Hct 40.2 MCV 96.4 MCH 31.8 MCHC 32.9 RDW 14.0 Plt Count 116 L MPV 8.7 Neut % (Auto) 84.1 H Lymph % (Auto) 7.0 L Sutton % (Auto) 8.3 H Eos % (Auto) 0.2 Baso % (Auto) 0.4 Neut # (Auto) 3.8 Lymph # (Auto) 0.3 L Sutton # (Auto) 0.4 Eos # (Auto) 0.0 Baso # (Auto) 0.0 WBC Differential . Differential Comment Auto diff final Sodium 138 Potassium 4.1 Chloride 100 Carbon Dioxide 29.8 Anion Gap 8 BUN 14 Creatinine 1.11 Estimated GFR 65 L POC Glucose 264 H Random Glucose 200 H Calcium 8.7 Troponin I 0.04 Triglycerides Cholesterol LDL Cholesterol, Calc HDL Cholesterol Cholesterol/HDL Ratio TSH 0.790 06/26/18 06/26/18 06/26/18 16:21 20:20 22:23 WBC RBC Hgb Hct MCV MCH MCHC RDW Plt Count MPV Neut % (Auto) Lymph % (Auto) Sutton % (Auto) Eos % (Auto) Baso % (Auto) Neut # (Auto) Lymph # (Auto) Sutton # (Auto) Eos # (Auto) Baso # (Auto) WBC Differential Differential Comment Sodium Potassium Chloride Carbon Dioxide Anion Gap BUN Creatinine Estimated GFR POC Glucose 353 H 319 H Random Glucose Calcium Troponin I 0.03 Triglycerides 143 Cholesterol 152 LDL Cholesterol, Calc 89 HDL Cholesterol 34.7 L Cholesterol/HDL Ratio 4.38 TSH 06/27/18 06/27/18 03:54 08:10 WBC RBC Hgb Hct MCV MCH MCHC RDW Plt Count MPV Neut % (Auto) Lymph % (Auto) Sutton % (Auto) Eos % (Auto) Baso % (Auto) Neut # (Auto) Lymph # (Auto) Sutton # (Auto) Eos # (Auto) Baso # (Auto) WBC Differential Differential Comment Sodium Potassium Chloride Carbon Dioxide Anion Gap BUN Creatinine Estimated GFR POC Glucose 273 H 403 H Random Glucose Calcium Troponin I Triglycerides Cholesterol LDL Cholesterol, Calc HDL Cholesterol Cholesterol/HDL Ratio TSH - Imaging Impressions Head MRI 06/26/18 00:00 CONCLUSION: Subacute pontine stroke on the left. Assessment and Plan - Plan Mr. Acosta is a 72-year-old male with a past medical history of arteriosclerosis, hyperlipidemia, BPH, atrial fibrillation-not on long-term anticoagulation, diabetes requiring insulin, dysthymic disorder, eczema, hypo- magnesium, noncompliance, obesity, PTSD, and vitamin D deficiency who was at [facility] for inpatient rehab following left pontine infarct (on Xarelto in rehab). While at [facility] on 06/25/18, he developed altered mental status ( somnolent with slurred, dysarthric speech) and was transferred to [facility] under a stroke alert. Stat CT of brain showed no acute changes and stable left pontine infarction. The patient has been seen by Dr. Patten who is recommending brain MRI and head/neck CTAs. Altered mental status Left pontine stroke - patient s/p stroke alert at [facility] 06/25 - neurology consulted - Dr. Patten's input is appreciated - 06/26 CTA negative, 06/26 head MRI sub acute pontine stroke on the left, 06/26 Neck CTA calcified arthrosclerotic plaque generating bilateral 50% ICA stenosis. Patent vertebral arteries bilaterally. - Passed swallow evaluation, episode of coughing earlier today, speech to reevaluate swallowing. -Continue neuro checks - continuous cardiac telemetry - consult ST, PT, OT -Improved mentation today Atrial fibrillation with current rate control - Status post cardiology evaluation during initial hospitalization for left pontine infarction- on Xarelto; continue on digoxin and metoprolol - Echocardiogram with normal ejection fraction 5560% - continuous cardiac telemetry Diabetes mellitus type II, uncontrolled - Patient had hemoglobin A1c 17 on 06/19/18 - low dose Novolog sliding scale coverage with Accu-Cheks before meals and at bedtime -Blood sugars elevated, increase Levemir dose to 50 mg twice daily - PRN hypoglycemia treatment protocol Right antecubital cellulitis -Continue p.o. Cipro and Bactroban -Cellulitis improved compared to yesterday -Possibly source of low grade tem. recent UA negative, recheck urine culture pending - Chest x-ray negative Possible parkinsonian-like symptoms - Continue on home Sinemet Hypotensive episode, asymptomatic Complaints of chest pressure - ? Related to blood pressure medications, NS 1L bolus with improvement in BP, slightly elevated creatinine w/ hyponatremia continue NS @100/hr. Recheck labs in the a.m. -Parameters for blood pressure and beta-ila medications placed -Check blood cultures 2, low-grade temps the day before, lactic acid 2.1, chest x-ray negative -Troponin 0 0.04, EKG showing a flutter with no acute ST elevation, similar to prior EKG. chest pressure possibly related to coughing spell DVT prophylaxis - resume Xarelto Discussed Condition With: Discussed with patient, RN, family at bedside. Discharge Planning: We will need neuro clearance, hope to discharge back to [facility].
[2018-06-27] MEDS: Senna/Docusate Sodium 8.6/50 MG Tablet PO SCH ×2 (09:22→20:59)
[2018-06-27 10:57] LABS: Baso % (Auto) 0.6 % (0.0-2.0); Eos % (Auto) 1.5 % (0.0-4.0); Hematocrit 34.4 % (39.0-51.0); Hemoglobin 11.7 gm/dL (13.0-17.0); Lymph # (Auto) 0.3 th/mm3 (1.0-4.8); Lymph % (Auto) 10.1 % (9.0-44.0); Mean Corpuscular HGB Conc 34.2 % (32.0-36.0); Mean Corpuscular Hemoglobin 31.9 pg (27.0-34.0); Mean Corpuscular Volume 93.5 fL (80.0-100.0); Mean Platelet Volume 8.9 fL (7.0-11.0); Mono # (Auto) 0.3 th/mm3 (0.0-0.9); Mono % (Auto) 9.8 % (0.0-8.0); Neut # (Auto) 2.3 th/mm3 (1.8-7.7); Platelet Count 115 th/mm3 (150-450); Red Blood Count 3.68 mil/mm3 (4.50-5.90); Red Cell Distribution Width 14.5 % (11.6-17.2)
[2018-06-27] MEDS: Acetaminophen 325 MG Tablet PO PRN (11:07)
[2018-06-27] MEDS ORDERED: Sod Chloride 0.9% Inj 1,000 ML IV.SIG ONE (13:45)
--- NOTE | 2018-06-27 14:56 | XR ---
EXAM DATE: 06/27/2018 2:26 PM EDT AGE/SEX: 72 years / Male INDICATIONS: Dysphagia. CLINICAL DATA: This is the patient's initial encounter. Patient reports that signs and symptoms have been present for 1 day and indicates a pain score of 3/10. MEDICAL/SURGICAL HISTORY: Diabetes. Hypertension. Tonsillectomy. COMPARISON: [facility] [place] 1V SINGLE AP, [place]/26/2018. . FINDINGS: No significant new focal pleural or parenchymal opacities. The cardiomediastinal contours are unremar kable. Osseous structures are intact. CONCLUSION: 1. No acute abnormality or significant interval change. Electronically signed by: Myke Scott MD 06/27/2018 2:55 PM EDT
[2018-06-27 15:47] LABS: Albumin 2.1 g/dL (3.4-5.0); Calcium 7.4 mg/dL (8.5-10.1); Carbon Dioxide 24.9 meq/L (21.0-32.0); Potassium 4.3 meq/L (3.5-5.1)
[2018-06-27 15:55] LABS: Total Protein 5.5 g/dL (6.4-8.2)
[2018-06-27] MEDS: Sod Chloride 0.9% Inj 1,000 ML IV.CONT SCH (17:00)
--- NOTE | 2018-06-27 19:59 | P.PNNEU ---
Subjective Subjective Comments: No new c/o. denies double vision, vertigo Active Medications: Active Medications Acetaminophen (Tylenol) 650 mg PO Q4H PRN PRN Reason: PAIN 1-10 AND/OR FEVER >101F Last Admin: 06/27/18 11:07 Dose: 650 mg Al Hydroxide/Mg Hydroxide (Milk Of Magnesia Liq) 30 ml PO Q12H PRN PRN Reason: Mild Constipation Albuterol (Albuterol Neb (Prn)) 1.25 mg NEB Q4HR NEB PRN PRN Reason: SHORTNESS OF BREATH/WHEEZING Aspirin (Aspirin) 325 mg PO DAILY [facility] Last Admin: 06/27/18 08:18 Dose: 325 mg Atorvastatin Calcium (Lipitor) 40 mg PO HS [facility] Last Admin: 06/26/18 22:39 Dose: 40 mg Bisacodyl (Dulcolax Supp) 10 mg RECTAL DAILY PRN PRN Reason: SEVERE CONSITIPATION Carbidopa/Levodopa (Sinemet 25/100 Mg) 2 tab PO BID [facility] Last Admin: 06/27/18 08:18 Dose: 2 tab Ciprofloxacin HCl (Cipro) 500 mg PO Q12HR [facility] Last Admin: 06/27/18 08:18 Dose: 500 mg Dextrose (D50w Vial) 50 ml IV.PUSH UNSCH PRN PRN Reason: PER HYPOGLYCEMIA PROTOCOL Digoxin (Lanoxin) 125 mcg PO DAILY [facility] Last Admin: 06/27/18 09:31 Dose: Not Given Enalapril Maleate (Vasotec) 20 mg PO BID [facility] Last Admin: 06/27/18 08:18 Dose: 20 mg Glucagon (Glucagon Inj) 1 mg OTHER PRN PRN PRN Reason: for Hypoglycemia Protocol Sodium Chloride (Ns Inj) 1,000 mls @ 100 mls/hr IV.CONT .Q10H [facility] Last Admin: 06/27/18 17:00 Dose: 100 mls/hr Insulin Aspart (Novolog Insulin Correctional Sugar Inj) 0 unit SQ ACHS AND 3AM [facility]; Protocol Last Admin: 06/27/18 16:53 Dose: 9 unit Insulin Detemir (Levemir Inj) 15 unit SQ BID [facility] Lactobacillus Acidophilus (Lactinex) 1 tab PO DAILY [facility] Last Admin: 06/27/18 08:18 Dose: 1 tab Lactulose (Lactulose Liq) 30 ml PO DAILY PRN PRN Reason: SEVERE CONSITIPATION Metoprolol Tartrate (Lopressor) 25 mg PO BID [facility] Last Admin: 06/27/18 08:18 Dose: 25 mg Mupirocin (Bactroban 2% Oint) 1 applicatio TOPICAL BID [facility] Last Admin: 06/27/18 08:17 Dose: 1 applicatio Rivaroxaban (Xarelto) 20 mg PO DAILY [facility] Last Admin: 06/27/18 08:19 Dose: 20 mg Senna/Docusate Sodium (Rayna-Colace) 1 tab PO BID [facility] Last Admin: 06/27/18 09:22 Dose: 1 tab Sennosides (Senokot) 17.2 mg PO Q12H PRN PRN Reason: Moderate Constipation Sodium Chloride (Ns Flush) 2 ml IV.FLUSH BID [facility] Last Admin: 06/27/18 08:19 Dose: 2 ml Sodium Chloride (Ns Flush) 2 ml IV.FLUSH PRN PRN PRN Reason: FLUSH AFTER USING IV ACCESS Tamsulosin HCl (Flomax) 0.4 mg PO DAILY [facility] Last Admin: 06/27/18 08:18 Dose: 0.4 mg Vitamin D (Vitamin D3) 2,000 unit PO DAILY [facility] Last Admin: 06/27/18 08:18 Dose: 2,000 unit Allergies/Adverse Reactions: Allergies Allergy/AdvReac Type Severity Reaction Status Date / Time No Known Allergies Allergy Verified 06/19/18 12:47 Physical Exam Vital signs: Vital Signs 06/26/18 20:00 06/27/18 00:00 06/27/18 04:00 Temperature 99.7 F H 98.3 F 98.7 F Pulse Rate 98 H 77 71 Respiratory Rate 18 18 18 Blood Pressure 165/74 H 105/57 L 109/58 L Pulse Oximetry 98 97 100 06/27/18 08:00 06/27/18 09:25 06/27/18 11:37 Temperature 97.9 F Pulse Rate 87 72 Respiratory Rate 15 18 Blood Pressure 127/58 L Pulse Oximetry 99 06/27/18 11:48 06/27/18 12:00 06/27/18 13:30 Temperature 96.0 F L Pulse Rate 87 74 87 Respiratory Rate 18 Blood Pressure 81/46 L 79/44 L Pulse Oximetry 99 06/27/18 13:40 06/27/18 14:15 06/27/18 16:14 Temperature 97.6 F Pulse Rate 86 82 92 H Respiratory Rate 18 18 Blood Pressure 101/58 L 91/53 L 96/59 L Pulse Oximetry 99 Intake & Output 06/27/18 06/27/18 06/28/18 06:59 18:59 06:59 Intake Total 60 / 60 1480 / 1480 Output Total 900 / 900 Balance 60 / 60 580 / 580 Weight 108.4 kg Intake: IV 1000 / 1000 NS Inj 1,000 ML @ Wide Open IV. 1000 / 1000 SIG BOLUS ONE Rx#:[id number] Oral 60 / 60 480 / 480 Output: Urine 900 / 900 Other: # Voids 3 Date of Last Bowel Movement 06/27/18 # Bowel Movements 1 - Routine Neurological Exam alert, speech mildly dysarthric EOM intact MOTOR 4/5 RUE and RLE, 5/5 LUE and LLE Objective Laboratory Results - last 24 hr 06/26/18 06/26/18 06/27/18 20:20 22:23 03:54 WBC RBC Hgb Hct MCV MCH MCHC RDW Plt Count MPV Neut % (Auto) Lymph % (Auto) Storey % (Auto) Eos % (Auto) Baso % (Auto) Neut # (Auto) Lymph # (Auto) [place]y # (Auto) Eos # (Auto) Baso # (Auto) WBC Differential Differential Comment Sodium Potassium Chloride Carbon Dioxide Anion Gap BUN Creatinine Estimated GFR POC Glucose 319 H 273 H Random Glucose Lactic Acid Calcium Prot Corrected Calcium Total Bilirubin AST ALT Alkaline Phosphatase Troponin I 0.03 Total Protein Albumin Triglycerides 143 Cholesterol 152 LDL Cholesterol, Calc 89 HDL Cholesterol 34.7 L Cholesterol/HDL Ratio 4.38 Digoxin 06/27/18 06/27/18 06/27/18 08:10 09:41 09:41 WBC 3.0 L RBC 3.68 L Hgb 11.7 L Hct 34.4 L MCV 93.5 MCH 31.9 MCHC 34.2 RDW 14.5 Plt Count 115 L MPV 8.9 Neut % (Auto) 78.0 H Lymph % (Auto) 10.1 Storey % (Auto) 9.8 H Eos % (Auto) 1.5 Baso % (Auto) 0.6 Neut # (Auto) 2.3 Lymph # (Auto) 0.3 L [place]y # (Auto) 0.3 Eos # (Auto) 0.0 Baso # (Auto) 0.0 WBC Differential . Differential Comment Auto diff final Sodium Potassium Chloride Carbon Dioxide Anion Gap BUN Creatinine Estimated GFR POC Glucose 403 H Random Glucose Lactic Acid Calcium Prot Corrected Calcium Total Bilirubin AST ALT Alkaline Phosphatase Troponin I Total Protein Albumin Triglycerides Cholesterol LDL Cholesterol, Calc HDL Cholesterol Cholesterol/HDL Ratio Digoxin 0.6 L 06/27/18 06/27/18 06/27/18 11:05 15:12 15:12 WBC RBC Hgb Hct MCV MCH MCHC RDW Plt Count MPV Neut % (Auto) Lymph % (Auto) Storey % (Auto) Eos % (Auto) Baso % (Auto) Neut # (Auto) Lymph # (Auto) [place]y # (Auto) Eos # (Auto) Baso # (Auto) WBC Differential Differential Comment Sodium 133 L Potassium 4.3 Chloride 98 Carbon Dioxide 24.9 Anion Gap 10 BUN 33 H Creatinine 1.56 H Estimated GFR 44 L POC Glucose 362 H Random Glucose 449 H D Lactic Acid Calcium 7.4 L* D Prot Corrected Calcium 8.3 L Total Bilirubin 1.1 H AST 58 H ALT 24 Alkaline Phosphatase 86 Troponin I 0.04 Total Protein 5.5 L D Albumin 2.1 L Triglycerides Cholesterol LDL Cholesterol, Calc HDL Cholesterol Cholesterol/HDL Ratio Digoxin 06/27/18 06/27/18 15:12 16:14 WBC RBC Hgb Hct MCV MCH MCHC RDW Plt Count MPV Neut % (Auto) Lymph % (Auto) [place]y % (Auto) Eos % (Auto) Baso % (Auto) Neut # (Auto) Lymph # (Auto) [place]y # (Auto) Eos # (Auto) Baso # (Auto) WBC Differential Differential Comment Sodium Potassium Chloride Carbon Dioxide Anion Gap BUN Creatinine Estimated GFR POC Glucose 414 H Random Glucose Lactic Acid 2.1 H Calcium Prot Corrected Calcium Total Bilirubin AST ALT Alkaline Phosphatase Troponin I Total Protein Albumin Triglycerides Cholesterol LDL Cholesterol, Calc HDL Cholesterol Cholesterol/HDL Ratio Digoxin Review/Management - Review/Management Plan: continboris bernabe and asa PT/OT
[2018-06-28] MEDS: Sod Chloride 0.9% Inj 1,000 ML IV.CONT SCH ×3 (02:24→22:37)
[2018-06-28] MEDS: Insulin NovoLOG Aspart Correctional Sugar Inj SQ SCH ×5 (03:15→22:01)
[2018-06-28 07:15] LABS: Calcium 7.6 mg/dL (8.5-10.1); Carbon Dioxide 27.9 meq/L (21.0-32.0); Potassium 3.6 meq/L (3.5-5.1)
[2018-06-28] MEDS: Rivaroxaban 20 MG Tablet PO SCH (08:07)
[2018-06-28] MEDS: Ciprofloxacin 500 MG Tablet PO SCH ×2 (08:07→21:52)
[2018-06-28] MEDS: Aspirin 325 MG Tablet PO SCH (08:08)
[2018-06-28] MEDS: Senna/Docusate Sodium 8.6/50 MG Tablet PO SCH ×2 (08:08→21:52)
[2018-06-28] MEDS: Lactobacillus Acidophilus/L. Spores Tablet PO SCH (08:08)
[2018-06-28] MEDS: Digoxin 125 MCG Tablet PO SCH (08:08)
[2018-06-28] MEDS: Metoprolol Tartrate 25 MG Tablet PO SCH ×2 (08:08→21:53)
[2018-06-28] MEDS: Insulin Detemir Inj 1,000 UNIT/10 ML Vial SQ SCH (08:09)
--- NOTE | 2018-06-28 12:06 | P.PN ---
Subjective Interval history: Follow-up visit for altered mental status, possible stroke, A. fib and diabetes mellitus. Patient is seen and examined resting in bed comfortably, appears to be in no acute distress. He denies any cough, shortness of breath, chest pain, nausea, vomiting, diarrhea, abdominal pain or discomfort. Patient complains of restless leg at bedtime, is requesting increase in his Sinemet dose. Nurse reports patient had a bowel movement yesterday. BP this morning improved, mental status stable. Physical Exam Vital signs: Vital Signs 06/27/18 13:30 06/27/18 13:40 06/27/18 14:15 Temperature Pulse Rate 87 86 82 Respiratory Rate 18 Blood Pressure 79/44 L 101/58 L 91/53 L Pulse Oximetry 06/27/18 16:14 06/27/18 20:00 06/27/18 20:46 Temperature 97.6 F 98.2 F Pulse Rate 92 H 92 H Respiratory Rate 18 18 Blood Pressure 96/59 L 100/57 L Pulse Oximetry 99 97 06/27/18 23:47 06/28/18 00:00 06/28/18 04:00 Temperature 97.8 F 98.1 F Pulse Rate 74 74 76 Respiratory Rate 20 18 18 Blood Pressure 113/56 L 98/45 L Pulse Oximetry 99 96 06/28/18 08:00 06/28/18 08:18 06/28/18 08:28 Temperature 98.6 F Pulse Rate 67 78 Respiratory Rate 18 Blood Pressure 131/60 Pulse Oximetry 96 95 06/28/18 10:03 06/28/18 10:04 Temperature Pulse Rate 72 Respiratory Rate 18 Blood Pressure 111/54 L Pulse Oximetry 97 97 Intake & Output 06/27/18 06/28/18 06/28/18 18:59 06:59 18:59 Intake Total 1480 / 1480 1300 / 1300 Output Total 900 / 900 Balance 580 / 580 1300 / 1300 Weight 109.5 kg Intake: IV 1000 / 1000 1000 / 1000 NS Inj 1,000 ML @ 100 mls/hr IV 1000 / 1000 .CONT .Q10H RICARDO Rx#:[id number] NS Inj 1,000 ML @ Wide Open IV. 1000 / 1000 SIG BOLUS ONE Rx#:[id number] Oral 480 / 480 300 / 300 Output: Urine 900 / 900 Other: # Voids 3 Date of Last Bowel Movement 06/27/18 06/27/18 06/27/18 # Bowel Movements 1 Narrative: GENERAL: Well-developed, obese male resting in bed, appears to be in no acute distress. SKIN: Warm and dry. Right AC with dry eschar, surrounding erythema, continues to improve, no warmth or edema noted. Right lateral knee scar dry and intact. HEAD: Atraumatic. Normocephalic. EYES: Pupils equal and round. No scleral icterus. No injection or drainage. ENT: No nasal bleeding or discharge. Mucous membranes pink and moist. NECK: Trachea midline. CARDIOVASCULAR: Regular rate and rhythm. RESPIRATORY: Anterior breath sounds clear, posterior lung sounds diminished but clear. GASTROINTESTINAL: Abdomen soft, non-tender, nondistended. + Bowel sounds. MUSCULOSKELETAL: Extremities without clubbing, cyanosis, or edema. No obvious deformities. NEUROLOGICAL: Awake and alert, oriented 3. No obvious cranial nerve deficits. Motor grossly within normal limits. 4/5 muscle strength in the arms and legs. Normal speech. PSYCHIATRIC: More talkative and interactive today. Results - Labs CBC & Chem 7: 06/27/18 09:41 06/28/18 06:05 Laboratory Results - last 24 hr 06/27/18 06/27/18 06/27/18 15:12 15:12 15:12 Sodium 133 L Potassium 4.3 Chloride 98 Carbon Dioxide 24.9 Anion Gap 10 BUN 33 H Creatinine 1.56 H Estimated GFR 44 L POC Glucose Random Glucose 449 H D Lactic Acid 2.1 H Calcium 7.4 L* D Prot Corrected Calcium 8.3 L Total Bilirubin 1.1 H AST 58 H ALT 24 Alkaline Phosphatase 86 Troponin I 0.04 Total Protein 5.5 L D Albumin 2.1 L 06/27/18 06/27/18 06/28/18 16:14 20:49 03:10 Sodium Potassium Chloride Carbon Dioxide Anion Gap BUN Creatinine Estimated GFR POC Glucose 414 H 383 H 246 H Random Glucose Lactic Acid Calcium Prot Corrected Calcium Total Bilirubin AST ALT Alkaline Phosphatase Troponin I Total Protein Albumin 06/28/18 06/28/18 06/28/18 06:05 08:22 11:08 Sodium 141 Potassium 3.6 Chloride 107 D Carbon Dioxide 27.9 Anion Gap 6 BUN 28 H Creatinine 1.07 Estimated GFR 68 L POC Glucose 202 H 265 H Random Glucose 193 H D Lactic Acid Calcium 7.6 L Prot Corrected Calcium Total Bilirubin AST ALT Alkaline Phosphatase Troponin I Total Protein Albumin Microbiology 06/27/18 15:12 Blood - Peripheral Aerobic Blood Culture - Preliminary No growth in 1 day 06/27/18 15:12 Blood - Peripheral Anaerobic Blood Culture - Preliminary No growth in 1 day 06/27/18 15:07 Blood - Peripheral Aerobic Blood Culture - Preliminary No growth in 1 day 06/27/18 15:07 Blood - Peripheral Anaerobic Blood Culture - Preliminary No growth in 1 day 06/27/18 04:20 Random Urine Urine Culture - Final <10,000 cfu/mL mixed gram positive sade - no further workup - Imaging Impressions Chest X-Ray 06/27/18 13:53 CONCLUSION: 1. No acute abnormality or significant interval change. Assessment and Plan - Plan Mr. Acosta is a 72-year-old male with a past medical history of arteriosclerosis, hyperlipidemia, BPH, atrial fibrillation-not on long-term anticoagulation, diabetes requiring insulin, dysthymic disorder, eczema, hypo- magnesium, noncompliance, obesity, PTSD, and vitamin D deficiency who was at [facility] for inpatient rehab following left pontine infarct (on Xarelto in rehab). While at [facility] on 06/25/18, he developed altered mental status ( somnolent with slurred, dysarthric speech) and was transferred to [facility] under a stroke alert. Stat CT of brain showed no acute changes and stable left pontine infarction. The patient has been seen by Dr. Patten who is recommending brain MRI and head/neck CTAs. Altered mental status Left pontine stroke - patient s/p stroke alert at [facility] 06/25 - neurology consulted - Dr. Patten's input is appreciated - 06/26 CTA negative, 06/26 head MRI sub acute pontine stroke on the left, 06/26 Neck CTA calcified arthrosclerotic plaque generating bilateral 50% ICA stenosis. Patent vertebral arteries bilaterally. - Passed swallow evaluation, episode of coughing earlier today, speech to reevaluate swallowing. -Continue neuro checks - continuous cardiac telemetry - consult ST, PT, OT - mental status stable. Neuro. recommends continuing Xarelto and ASA. Atrial fibrillation with current rate control - Status post cardiology evaluation during initial hospitalization for left pontine infarction- on Xarelto; continue on digoxin and metoprolol - Echocardiogram with normal ejection fraction 5560% - continuous cardiac telemetry Diabetes mellitus type II, uncontrolled - BS continue to be high - Patient had hemoglobin A1c 17 on 06/19/18 - increase ISS to medium Novolog sliding scale coverage with Accu-Cheks before meals and at bedtime -Blood sugars elevated, increase Levemir to 20units BID - PRN hypoglycemia treatment protocol Right antecubital cellulitis -Continue p.o. Cipro and Bactroban -Cellulitis continues to improve -Possibly source of low grade tem. UA culture negative - Chest x-ray negative negative Possible parkinsonian-like symptoms Per pt this is to treat RLS - Continue same dose, add PRN HS if needed. Hypotensive episode, asymptomatic Complaints of chest pressure - ? Related to blood pressure medications, NS 1L bolus with improvement in BP, slightly elevated creatinine w/ hyponatremia continue NS @100/hr. Labs this am stable. -Parameters for blood pressure and beta-ila medications placed. Hold Vasotec. -Check blood cultures 2 NTD, afebrile, lactic acid 2.1, chest x-ray negative -Troponin 0 0.04, EKG showing a flutter with no acute ST elevation, similar to prior EKG. 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
[2018-06-28] MEDS ORDERED: Insulin Detemir Inj 1,000 UNIT/10 ML Vial SQ SCH (13:23)
--- NOTE | 2018-06-28 13:45 | ECG ---
Date Performed: 06/27/2018 Time Performed: 14:54:15 PTAGE: 72 years EKG: ATRIAL FLUTTER ABNORMAL RHYTHM ECG Since the PREVIOUS TRACING , no significant change noted PREVIOUS TRACIN06/20/2018 01.31 DOCTOR: Jose Maria Rosenberg Interpretating Date/Time 06/28/2018 13:44:36
[2018-06-29] MEDS: Insulin NovoLOG Aspart Correctional Sugar Inj SQ SCH ×2 (02:27→13:00)
[2018-06-29] MEDS ORDERED: Insulin Detemir Inj 1,000 UNIT/10 ML Vial SQ SCH (09:00)
[2018-06-29] MEDS: Senna/Docusate Sodium 8.6/50 MG Tablet PO SCH (09:33)
[2018-06-29] MEDS: Lactobacillus Acidophilus/L. Spores Tablet PO SCH (09:33)
[2018-06-29] MEDS: Metoprolol Tartrate 25 MG Tablet PO SCH (09:34)
[2018-06-29] MEDS: Aspirin 325 MG Tablet PO SCH (09:34)
[2018-06-29] MEDS: Digoxin 125 MCG Tablet PO SCH (09:34)
[2018-06-29] MEDS: Rivaroxaban 20 MG Tablet PO SCH (09:34)
[2018-06-29] MEDS: Ciprofloxacin 500 MG Tablet PO SCH (09:34)
[2018-06-29] MEDS: Sod Chloride 0.9% Inj 1,000 ML IV.CONT SCH (09:35)
--- NOTE | 2018-06-29 09:38 | ECHRPT ---
Indication: CVA/TIA CONCLUSIONS The left ventricular systolic function is normal with an estimated ejection fraction in the range of 55-60%. Mild concentric left ventricular hypertrophy. Normal left ventricular size. The left atrial size is mildly dilated. Mitral annular calcification is present. [id number] mitral valve regurgitation. Aortic valve sclerosis is present. Diffuse calcification of the aortic valve. There is mild tricuspid valve regurgitation. The estimated pulmonary arterial pressure is 36.6 mmHg. BP: / HR: Rhythm: Sinus MEASUREMENTS (Male / Female) Normal Values Technical Quality:Fair 2D ECHO LV Diastolic Diameter PLAX 4.7 cm 4.2 - 5.9 / 3.9 - 5.3 cm LV Systolic Diameter PLAX 3.2 cm IVS Diastolic Thickness 1.3 cm 0.6 - 1.0 / 0.6 - 0.9 cm LVPW Diastolic Thickness 1.3 cm 0.6 - 1.0 / 0.6 - 0.9 cm LV Relative Wall Thickness 0.6 RV Internal Dim ED PLAX 3.0 cm LVOT Diameter 2.1 cm LA Systolic Diameter LX 4.1 cm 3.0 - 4.0 / 2.7 - 3.8 cm M-MODE Aortic Root Diameter MM 3.6 cm LA Systolic Diameter MM 4.0 cm LA Ao Ratio MM 1.1 AV Cusp Separation MM 1.1 cm DOPPLER AV Peak Velocity 192.0 cm/s AV Peak Gradient 14.7 mmHg LVOT Peak Velocity 102.0 cm/s LVOT Peak Gradient 4.2 mmHg AV Area Cont Eq pk 1.8 cm MV Area PHT 4.2 cm Mitral E Point Velocity 135.0 cm/s Mitral A Point Velocity 82.4 cm/s Mitral E to A Ratio 1.6 LV E' Lateral Velocity 10.2 cm/s Mitral E to LV E' Lateral Ratio 13.2 LV E' Septal Velocity 8.4 cm/s Mitral E to LV E' Septal Ratio 16.1 TR Peak Velocity 258.0 cm/s TR Peak Gradient 26.6 mmHg Right Atrial Pressure 10.0 mmHg Pulmonary Artery Systolic Pressu 36.6 mmHg Right Ventricular Systolic Press 36.6 mmHg FINDINGS LEFT VENTRICLE The left ventricular systolic function is normal with an estimated ejection fraction in the range of 55-60%. Mild concentric left ventricular hypertrophy. Normal left ventricular size. RIGHT VENTRICLE Normal right ventricular size and systolic function. LEFT ATRIUM The left atrial size is mildly dilated. RIGHT ATRIUM The right atrial size is normal. ATRIAL SEPTUM Normal atrial septal thickness without atrial level shunting by limited color doppler interrogation. AORTA The aortic root and proximal ascending aorta are normal in size on limited imaging. MITRAL VALVE Mitral annular calcification is present. [id number] mitral valve regurgitation. AORTIC VALVE Trileaflet aortic valve. Aortic valve sclerosis is present. Diffuse calcification of the aortic valve. TRICUSPID VALVE Structurally normal tricuspid valve. There is mild tricuspid valve regurgitation. The estimated pulmonary arterial pressure is 36.6 mmHg. PULMONARY VALVE No pulmonary valve regurgitation or stenosis. VESSELS The inferior vena cava is normal in size. PERICARDIUM No pericardial effusion. Jose Maria Rosenberg MD (Electronically Signed) Final Date:29 June 2018 09:37
--- NOTE | 2018-06-29 11:48 | P.DS ---
Date of admission: 06/25/18 19:41 Primary care physician: UNKNOWN Attending physician on discharge: Monroe Bustamante Anticipated date of discharge: 06/29/18 Brief History from admission: Mr. Acosta is a 72-year-old male with a past medical history of arteriosclerosis, hyperlipidemia, BPH, atrial fibrillation-not on long-term anticoagulation, diabetes requiring insulin, dysthymic disorder, eczema, hypo- magnesium, noncompliance, obesity, PTSD, and vitamin D deficiency who was at [facility] for inpatient rehab following left pontine infarct (on Xarelto in rehab). While at [facility] on 06/25/18, he developed altered mental status ( somnolent with slurred, dysarthric speech) and was transferred to [facility] under a stroke alert. Stat CT of brain showed no acute changes and stable left pontine infarction. The patient has been seen by Dr. Patten who is recommending brain MRI and head/neck CTAs. The patient is seen in his hospital room, he is oriented to his name but unable to tell me his birthday, year, location, or provide any medical history. He is unable to tell me where he is or why. Therefore, medical information is obtained from EMR. DS: Summary Hospital Course: Mr. Acosta is a 72-year-old male with a past medical history of arteriosclerosis, hyperlipidemia, BPH, atrial fibrillation-not on long-term anticoagulation, diabetes requiring insulin, dysthymic disorder, eczema, hypo- magnesium, noncompliance, obesity, PTSD, and vitamin D deficiency who was at [facility] for inpatient rehab following left pontine infarct (on Xarelto in rehab). While at [facility] on 06/25/18, he developed altered mental status and transferred to [facility] under a stroke alert. Stat CT of brain showed no acute changes and stable left pontine infarction. Patient was seen and evaluated by Dr. Patten recommending brain MRI and head/neck CTAs. Head MRI sub acute pontine stroke on the left, neck CTA calcified arthrosclerotic plaque generating bilateral 50% ICA stenosis. Mental status improved and neurology recommended continuing Xarelto as well as aspirin. During his readmission patient also had low-grade temps and hypotensive episode. Blood cultures 2 negative to date, urine culture negative, chest x-ray was negative, troponins 0.04, EKG with no acute findings. Patient received IV hydration and hypertensive medications adjusted. He has been cleared for discharge from neurological standpoint and is now ready to return to [facility]. Patient is seen and examined resting in bed comfortably in no acute distress. He reports he is somewhat tired today as he did not get much sleep overnight due to his restless legs. Discussed with patient that he does have a as needed dose of sentiment in case his scheduled dose does not prove to be effective. Patient denies any shortness of breath, cough, nausea, vomiting, headache, dizziness or chest pain. Reports he is ready to return to rehab, voices no other acute concerns at the moment. - Time Spent with Patient Total time spent providing and/or coordinating discharge services: Greater than 30 minutes - Quality: Stroke Last date observed well: 06/25/18 - Quality: VTE Deep Vein Thrombosis/Pulmonary Embolism Present on Admission: No Exam Vital signs: Vital Signs 06/28/18 12:00 06/28/18 16:00 06/28/18 19:56 Temperature 97.4 F L 97.3 F L Pulse Rate 78 111 H 92 H Respiratory Rate 18 18 Blood Pressure 122/65 104/62 Pulse Oximetry 96 97 06/28/18 20:00 06/28/18 23:57 06/29/18 00:00 Temperature 97.4 F L 98.1 F Pulse Rate 93 H 69 71 Respiratory Rate 17 17 Blood Pressure 143/67 H 142/67 H Pulse Oximetry 96 97 06/29/18 00:38 06/29/18 03:58 06/29/18 05:05 Temperature 98.1 F Pulse Rate 77 70 Respiratory Rate 18 17 Blood Pressure 127/60 Pulse Oximetry 96 06/29/18 05:30 06/29/18 08:00 Temperature 97.7 F Pulse Rate 93 H Respiratory Rate 18 18 Blood Pressure 137/82 Pulse Oximetry 97 Intake & Output 06/28/18 06/29/18 06/29/18 18:59 06:59 18:59 Intake Total 2800 / 2800 1000 / 1000 Output Total 1101 / 1101 700 / 700 Balance 1699 / 1699 300 / 300 Intake: IV 1000 / 1000 1000 / 1000 NS Inj 1,000 ML @ 100 mls/hr IV 1000 / 1000 1000 / 1000 .CONT .Q10H RICARDO Rx#:[id number] Oral 1800 / 1800 Output: Urine 1100 / 1100 700 / 700 Stool Other: # Voids 3 Date of Last Bowel Movement 06/27/18 06/28/18 # Bowel Movements 1 Narrative: GENERAL: Well-developed, obese male resting in bed, appears to be in no acute distress. SKIN: Warm and dry. Right AC with dry eschar, with minimal erythema, no drainage, warmth or edema. Right lateral knee scar dry and intact. HEAD: Atraumatic. Normocephalic. EYES: Pupils equal and round. No scleral icterus. No injection or drainage. ENT: No nasal bleeding or discharge. Mucous membranes pink and moist. NECK: Trachea midline. CARDIOVASCULAR: Regular rate and rhythm. RESPIRATORY: Anterior breath sounds clear, posterior lung sounds diminished but clear. GASTROINTESTINAL: Abdomen soft, non-tender, nondistended. + Bowel sounds. MUSCULOSKELETAL: Extremities without clubbing, cyanosis, or edema. No obvious deformities. NEUROLOGICAL: Awake and alert, oriented 3. No obvious cranial nerve deficits. Motor grossly within normal limits. 4/5 muscle strength in the arms and legs. Normal speech. Results Procedures completed during hospitalization: None Labs on day of discharge: Labs from last 24 hours 06/29/18 06/29/18 06/28/18 08:34 02:21 21:46 POC Glucose 129 H 289 H 337 H 06/28/18 16:49 POC Glucose 339 H Preliminary micro results at discharge 06/27/18 15:12 Aerobic Blood Culture - Preliminary Blood - Peripheral No growth in 2 days Anaerobic Blood Culture - Preliminary No growth in 2 days 06/27/18 15:07 Aerobic Blood Culture - Preliminary Blood - Peripheral No growth in 2 days Anaerobic Blood Culture - Preliminary No growth in 2 days - Impressions ITS Impressions Head CTA 06/26/18 00:00 CONCLUSION: 1. Negative CTA Head. Head MRI 06/26/18 00:00 CONCLUSION: Subacute pontine stroke on the left. Neck CTA 06/26/18 00:00 CONCLUSION: 1. Calcified atherosclerotic plaque generating bilateral 50% ICA stenoses. 2. Patent vertebral arteries bilaterally. Chest X-Ray 06/27/18 13:53 CONCLUSION: 1. No acute abnormality or significant interval change. Discharge Plan - Discharge Disposition Patient Disposition: 60 Rehab Inpatient - Discharge Condition Condition: Fair - Discharge Order Discharge Orders: Discharge Order (Routine); Ordered 06/29/18 Ordered By: Gabi Breen - Physicians Team Primary Care Provider: UNKNOWN, Attending Provider: Monroe Bustamante Other Providers: Carlos Marquis MD, PhD ; Priya Pinzon MD - Rxs /Orders / Referrals /Forms Prescriptions: New mupirocin 2 % Ointment 1 applicatio Topical BID RF: 0 Continue acetaminophen 325 mg Tablet 650 mg PO Q4H PRN (Reason: Fever/ Pain 1-2) RF: 0 acidophilus-sporogenes [Acidophilus Ex Str (L. sporog)] 35 million- 25 million cell Tablet 1 tab PO DAILY RF: 0 aspirin 325 mg Tablet 325 mg PO DAILY atorvastatin [Lipitor] 80 mg Tablet 40 mg PO HS carbidopa-levodopa [Sinemet] 25-100 mg Tablet 2 tab PO BID cholecalciferol (vitamin D3) [Vitamin D3] 1,000 unit Tablet 2,000 unit PO DAILY ciprofloxacin HCl 500 mg Tablet 500 mg PO Q12HR 1 Days RF: 0 digoxin [Lanoxin] 125 mcg Tablet 0.125 mg PO DAILY insulin detemir U-100 [Levemir U-100 Insulin] 100 unit/mL Solution 25 unit Sub-Q BID RF: 0 metoprolol tartrate 25 mg Tablet 25 mg PO BID RF: 0 multivitamin with minerals Tablet 1 tab PO DAILY omega 0-vjf-zcj-fish oil [Fish Oil] 1,000 mg (120 mg-180 mg) Capsule 2,000 mg PO BID rivaroxaban [Xarelto] 20 mg Tablet 20 mg PO DAILY RF: 0 sennosides-docusate sodium [Senna Plus] 8.6-50 mg Tablet 1 tab PO BID RF: 0 Changed enalapril maleate [Vasotec] 20 mg Tablet 10 mg PO BID Qty: 0 RF: 0 Changed from: 20 mg oral twice daily Discontinued insulin aspart U-100 [Novolog U-100 Insulin aspart] 100 unit/mL Solution 0 unit Sub-Q ACHS RF: 0 insulin aspart U-100 [Novolog U-100 Insulin aspart] 100 unit/mL Solution 5 unit Sub-Q TIDAC RF: 0 magnesium oxide 400 mg Tablet 800 mg PO DAILY NEB meclizine 25 mg Tablet 50 mg PO HS oxycodone-acetaminophen 5-325 mg Tablet 1 tab PO Q6H PRN (Reason: Pain Scale 3 To 5) RF: 0 tamsulosin 0.4 mg Capsule,Extended Release 24hr 0.4 mg PO DAILY Referrals: UNKNOWN, [Primary Care Provider] - See Instructions - Discharge Instructions Patient Printed Instructions: Ciprofloxacin (By mouth), Carbidopa/Levodopa (By mouth), Aspirin (By mouth), A-fib (Atrial Fibrillation) (DC), How to Choose and Use a Walker (GEN), How To Wash Your Hands (DC), Hypotension (DC), Dizziness (ED ), Anxiety (ED), Aspiration Precautions (DC), How to Transfer a Person Safely ( DC), Deep Vein Thrombosis Prevention (DC) Additional Instructions: Follow up with your Primary Care Doctor as instructed. Follow up with your Internet Systems Administrator as instructed. Continue to check your sugars regularly. - Post Discharge Care Plan Care Plan Goals: Discharge Care Plan Goals for Stroke You have been diagnosed with or have a high risk for a stroke, or a TIA ( transient ischemic attack). During a stroke, blood stops flowing to part of your brain. This can damage areas in the brain that control other parts of the body. Symptoms after a stroke depend on which part of the brain has been affected. Directions to Meet your Goals: 1. Diet: Based on your situation, your doctor will direct you to make changes in your diet. Some of the changes may include: * Reducing the amount of fat and cholesterol you eat * Don't add salt to your food. * Eat more fresh vegetables and fruits * Eat more lean proteins, such as fish, poultry, and beans and peas (legumes). Cut down on red meat & processed meats * Use low-fat dairy products * Limit vegetable oils and nut oils. Avoid any food that has hydrogenated listed in its ingredients. * Limit sweets and processed foods such as chips, cookies, and baked goods 2. Prevent Falls/Injury: You may be at risk of falling. Activity: * Keep your surrounding clutter free to help you walk more easily. * Your doctor and therapist may decide if you need an assistive device to walk safely. Shower/Bathing: * Test the water temperature with a hand or foot that was not affected by the stroke. * Use grab bars, a shower seat, a hand-held showerhead, and a long-handled brush. Getting Dressed: * Dress while sitting, starting with the affected side or limb. * Wear shirts that pull easily over your head. Wear pants or skirts with elastic waistbands. * Use zippers with loops attached to the pull tabs. 3. Lifestyle Modifications: * Take your medicines exactly as prescribed. Dont skip doses. * Begin an exercise program as directed by your doctor. You can benefit from simple activities such as walking or gardening. * Limit how much alcohol you drink. Men should have no more than 2 alcoholic drinks a day. Women should limit themselves to 1 alcoholic drink per day. * Know your cholesterol level. Follow your doctor's recommendations about how to keep cholesterol under control. * If you are a smoker, quit now. Joining a stop-smoking program will improve your chances of success. Ask your doctor for medicines or other methods to help you quit. * Learn stress management techniques to help you deal with stress in your home and work life. 4. Stroke Risk Factors: Once youve had a stroke, youre at greater risk for another one. Listed below are some other factors that can increase your risk for a stroke: * High blood pressure and High Cholesterol * Cigarette or cigar smoking * Diabetes * Carotid or other artery disease * Atrial fibrillation, atrial flutter, or other heart disease * Not being physically active * Obesity * Certain blood disorders such as sickle cell anemia * Drinking too much alcohol * Abusing street drugs * Race * Gender * Family history of stroke * Diet high in salty, fried, or greasy foods 5. Follow-up: * Keep your medical appointments. Close follow-up is important to stroke rehabilitation and recovery. * Some medicines require blood tests to check for progress or problems. Keep follow-up appointments for any blood tests ordered by your providers. Call 911 right away if you have: Weakness, tingling, or loss of feeling on one side of your face or body Sudden double vision or trouble seeing in one or both eyes Sudden trouble talking or slurred speech Trouble understanding others Sudden, severe headache Dizziness, loss of balance, or a sense of falling Blackouts or seizures F.A.S.T. is an easy way to remember the signs of stroke. When you see these signs, you know that you need to call 911 fast. F.A.S.T. stands for: * F is for face drooping. One side of the face is drooping or numb. When the person smiles, the smile is uneven. * A is for arm weakness. One arm is weak or numb. When the person lifts both arms at the same time, one arm may drift downward. * S is for speech difficulty. You may notice slurred speech or trouble speaking. The person can't repeat a simple sentence correctly when asked. * T is for time to call 911. If someone shows any of these symptoms, even if they go away, call 911 right away. Make note of the time the symptoms first appeared.
== END 2018-06-29 14:22 ==
LOC: N06 19:41
PROVIDERS: ADMIT Internal Medicine; ATTEND Internal Medicine